=== PATIENT | female | born 1955 | race Hispanic/Latino ===

== ENCOUNTER 2017-05-21 01:51 | Inpatient (IN) | payer OTHER ==
[2017-05-21] VITALS (27 sets, daily range): BP systolic 100–145; BP diastolic 61–107
[~2017-05-21] VITALS: Ht 160 cm; Wt 37.0 kg
[~2017-05-21 01:51] MED LIST: ALBUTEROL0.63 MG/3
[2017-05-21] MEDS ORDERED: ALBUTEROL SULF 0.083% NEB SOLN 3 ML NEB NEB STA (01:53)
[2017-05-21] MEDS ORDERED: IPRATROPIUM BROMIDE 0.02% 2.5 ML NEB NEB ONE (02:00)
[2017-05-21] MEDS: SODIUM CHLORIDE 0.9% 1000ML 1,000 ML IV SCH ×6 (02:15→22:00)
[2017-05-21 02:20] LABS: BASOPHILS # (AUTO) 0.1 (0.0-0.1); BASOPHILS % 0.6 % (0.0-1.0); HEMATOCRIT 38.2 % (34.2-44.1); HEMOGLOBIN 13.1 g/dL (12.0-16.0); LYMPHOCYTES # (AUTO) 1.1 (1.0-3.2); LYMPHOCYTES % 8.8 % (18.0-39.1); MEAN CORPUSCULAR HEMOGLOBIN 34.4 pg (28-32); MEAN CORPUSCULAR HGB CONC 34.3 g/dL (31-35); MEAN CORPUSCULAR VOLUME 100.3 fL (81-99); MONOCYTES # (AUTO) 1.1 (0.2-0.8); MONOCYTES % 8.6 % (4.4-11.3); NEUTROPHILS % 81.8 % (38.7-80.0); PLATELET COUNT 241 x10e3/uL (140-360); RED BLOOD COUNT 3.81 x10e6/uL (3.6-5.1); RED CELL DISTRIBUTION WIDTH 11.8 % (11.7-14.4)
[2017-05-21 02:37] LABS: ALANINE AMINOTRANSFERASE 21 IU/L (0-55); ALBUMIN 3.4 g/dL (3.5-5.0); ALBUMIN/GLOBULIN RATIO 0.7 (0.8-2.0); ALKALINE PHOSPHATASE 102 IU/L (40-150); BLOOD UREA NITROGEN 20 mg/dL (7-26); BUN/CREATININE RATIO 29 (6-25); CALCIUM 9.4 mg/dL (8.4-10.2); CARBON DIOXIDE 27 mmol/L (22-29); CHLORIDE 101 mmol/L (98-107); CREATINE KINASE 211 IU/L (29-168); CREATININE, SERUM 0.68 mg/dL (0.57-1.11); EST GLOMERULAR FILTRATION RATE > 60 ML/MIN (60-); GLUCOSE 128 mg/dL (74-118); SODIUM 138 mmol/L (136-145)
--- NOTE | 2017-05-21 04:14 | Diagnostic Imaging Report ---
EXAMINATION: CHEST SINGLE (PORTABLE) INDICATION: Shortness of breath COMPARISON: None FINDINGS: TUBES and LINES: None. LUNGS: Lungs are hyper inflated. Predominantly perihilar and bibasilar opacities. There is mild prominence of the central pulmonary vasculature, consistent with pulmonary venous congestion. PLEURA: No pleural effusion or pneumothorax. HEART AND MEDIASTINUM: The cardiomediastinal silhouette is unremarkable. There are atherosclerotic calcifications within the aorta. BONES AND SOFT TISSUES: No acute osseous lesion. Soft tissues are unremarkable. UPPER ABDOMEN: No free air under the diaphragm. IMPRESSION: Findings in the perihilar and bibasilar regions are compatible with atypical infection. Background of COPD. Signed by: Dr. Julian Rossi M.D. on 05/21/2017 4:10 AM
[2017-05-21] MEDS ORDERED: AZITHROMYCIN 500MG/NS 250 ML 250 ML IV STA (04:19)
[2017-05-21] MEDS ORDERED: CEFTRIAXONE SOD 1 GM VIAL IV STA (04:19)
[2017-05-21] MEDS ORDERED: AZITHROMYCIN 500MG/SOD CHL 0.9% 250ML BAG IV SCH (04:30)
[2017-05-21] MEDS: ALBUTEROL SULF 0.083% NEB SOLN 3 ML NEB NEB SCH ×6 (04:30→23:15)
[2017-05-21] MEDS ORDERED: CEFTRIAXONE SOD 1 GM VIAL IV SCH (04:30)
[2017-05-21] MEDS ORDERED: ACETAMINOPHEN 325 MG TAB PO PRN (04:30)
[2017-05-21] MEDS ORDERED: CEFTRIAXONE SOD 1 GM/NS 50 ML 50 ML IV SCH (04:45)
[2017-05-21] MEDS: AZITHROMYCIN 500MG/NS 250 ML 250 ML IV SCH (05:09)
[2017-05-21] MEDS ORDERED: METHYLPREDNISOLONE SOD SUCC 40 MG/ML VIAL IV SCH (06:00)
[2017-05-21] MEDS: IPRATROPIUM BROMIDE 0.02% 2.5 ML NEB NEB SCH ×4 (06:50→23:15)
[2017-05-21] MEDS: NICOTINE 21 MG/EA PATCH TOP SCH (08:22)
[2017-05-21] MEDS ORDERED: NORCO 10-325 T1 EACH PO (10:41)
[2017-05-21] MEDS: HYDROCODONE/APAP 10MG-325MG TAB PO PRN ×2 (13:25→18:11)
[2017-05-21] MEDS: METHYLPREDNISOLONE SOD SUCC 40 MG/ML VIAL IV SCH ×2 (13:25→22:00)
[2017-05-21] MEDS: GUAIFENESIN/DEXTROMETHORPHAN LIQD 5 ML UDC NG SCH ×2 (13:58→22:00)
[2017-05-21] MEDS ORDERED: IBUPROFEN400 MG PO (14:54)
[2017-05-21] MEDS: FAMOTIDINE 20 MG TAB PO SCH (16:00)
[2017-05-21] MEDS: ENOXAPARIN SOD INJ 40 MG/0.4 ML SYR SC SCH (16:00)
[2017-05-21] MEDS: MEGESTROL ACETATE 40 MG TAB PO SCH (16:00)
[2017-05-21] MEDS: BENZONATATE 100 MG CAP PO SCH ×2 (16:00→22:00)
[2017-05-21] MEDS ORDERED: PROAIR HFA INH8.5 GM IH (18:12)
[2017-05-21] MEDS ORDERED: PREDNISONE20 MG PO (18:12)
[2017-05-21] MEDS ORDERED: Anoro Ellipta IH (18:12)
[2017-05-22] MEDS: ALBUTEROL SULF 0.083% NEB SOLN 3 ML NEB NEB SCH ×7 (02:55→23:45)
[2017-05-22] MEDS: HYDROCODONE/APAP 10MG-325MG TAB PO PRN ×4 (03:00→21:06)
[2017-05-22 03:32] VITALS: BP 137/80
[2017-05-22] MEDS: SODIUM CHLORIDE 0.9% 1000ML 1,000 ML IV SCH ×5 (04:23→21:52)
--- NOTE | 2017-05-22 04:39 | History and Physical ---
PRIMARY CARE PHYSICIAN: Patient does not recall PCP. CHIEF COMPLAINT: Shortness of breath and cough. HISTORY OF PRESENT ILLNESS: This is a 61-year-old woman with a history of COPD and continued cigarette use, now developing cough and shortness of breath for the past 10 days causing her to come to the hospital. She has had productive cough with chills and fever. Temperature is 102.1. She has chest discomfort in the axillary region with cough. Chest discomfort started after coughing had been going on for some days. PAST MEDICAL HISTORY: COPD and cigarette abuse. PAST SURGICAL HISTORY: Knee surgery. ALLERGIES: PER ELECTRONIC MEDICAL RECORDS. FAMILY HISTORY/SOCIAL HISTORY: Patient is single. She has 1 child. Continues to smoke cigarettes, undisclosed amount. No alcohol or illicits. MEDICATIONS: Per electronic medical record. REVIEW OF SYSTEMS: Denies any dizziness. PHYSICAL EXAMINATION VITAL SIGNS: Reviewed. GENERAL: A tired-appearing woman resting in bed. HEENT: Anicteric. She has a BiPAP mask in place. She has bitemporal wasting. CARDIOVASCULAR: Normal S1 and S2. LUNGS: Coarse breath sounds. Coughing with deep inspiration. Crackles are audible throughout the lungs. Reduced breath sounds throughout. ABDOMEN: Soft, nontender and nondistended. EXTREMITIES: No edema. SKIN: Dry. PSYCHIATRIC: Flat affect. LABS: Reviewed. MEDICATIONS: Reviewed. ASSESSMENT AND PLAN: This is a 61-year-old woman with: 1. Acute exacerbation of chronic obstructive pulmonary disease: Steroids, nebs, antitussive medications, antihistamines. Pulmonary consultation. Influenza screening is negative. Chest x-ray does show signs compatible atypical infection. Will ensure that the patient has atypical coverage of azithromycin. 2. Cigarette abuse: Counseling again on cigarette cessation needed. Will use nicotine patch. 3. Bronchopneumonia: Continue antibiotics. 4. Acute respiratory failure: She has a BiPAP mask in place. Pulmonary service consultation. 5. Underweight state/severe protein calorie malnutrition with bitemporal wasting: Body mass index 14.2. Will start Ensure and start Megace. There may be some component of depression here. Will also obtain a prealbumin level. Will also obtain a TSH level. 6. Prophylaxis: Will use Lovenox and Pepcid. 7. Disposition: Monitor closely. Supportive care. Counseling on cigarette cessation. Job#: [id number] ERICKA
--- NOTE | 2017-05-22 06:07 | Diagnostic Imaging Report ---
EXAMINATION: CHEST SINGLE (PORTABLE) INDICATION: Pneumonia. COMPARISON: 05/21/2017 FINDINGS: TUBES and LINES: None. LUNGS: Lungs are hyper inflated. Lungs are clear. There is no evidence of pneumonia or pulmonary edema. PLEURA: No pleural effusion or pneumothorax. HEART AND MEDIASTINUM: The cardiomediastinal silhouette is unremarkable. BONES AND SOFT TISSUES: No acute osseous lesion. Soft tissues are unremarkable. UPPER ABDOMEN: No free air under the diaphragm. IMPRESSION: 1. No acute thoracic abnormality. 2. Stable changes of COPD. Signed by: Dr. Julian Rossi M.D. on 05/22/2017 6:03 AM
[2017-05-22] MEDS: IPRATROPIUM BROMIDE 0.02% 2.5 ML NEB NEB SCH ×5 (07:00→23:45)
[2017-05-22] MEDS: AZITHROMYCIN 500MG/NS 250 ML 250 ML IV SCH (07:09)
[2017-05-22] MEDS: FAMOTIDINE 20 MG TAB PO SCH ×2 (07:21→17:48)
[2017-05-22] MEDS: METHYLPREDNISOLONE SOD SUCC 40 MG/ML VIAL IV SCH ×3 (07:21→22:13)
[2017-05-22] MEDS: CEFTRIAXONE SOD 1 GM VIAL IV SCH (07:21)
[2017-05-22 07:45] VITALS: BP 117/61
[2017-05-22 08:16] LABS: BASOPHILS % 0.2 % (0.0-1.0); LYMPHOCYTES # (AUTO) 0.6 (1.0-3.2); MEAN CORPUSCULAR HEMOGLOBIN 34.3 pg (28-32); MEAN CORPUSCULAR HGB CONC 33.3 g/dL (31-35); MEAN CORPUSCULAR VOLUME 102.8 fL (81-99); MONOCYTES # (AUTO) 0.3 (0.2-0.8); MONOCYTES % 6.9 % (4.4-11.3); NEUTROPHILS # (AUTO) 3.1 (2.1-6.9); NEUTROPHILS % 77.2 % (38.7-80.0); PLATELET COUNT 192 x10e3/uL (140-360); RED BLOOD COUNT 3.21 x10e6/uL (3.6-5.1); RED CELL DISTRIBUTION WIDTH 11.6 % (11.7-14.4)
[2017-05-22 08:44] LABS: ALANINE AMINOTRANSFERASE 22 IU/L (0-55); ALBUMIN 2.5 g/dL (3.5-5.0); ALBUMIN/GLOBULIN RATIO 0.7 (0.8-2.0); ALKALINE PHOSPHATASE 62 IU/L (40-150); BLOOD UREA NITROGEN 11 mg/dL (7-26); BUN/CREATININE RATIO 19 (6-25); CALCIUM 8.7 mg/dL (8.4-10.2); CARBON DIOXIDE 27 mmol/L (22-29); CHLORIDE 105 mmol/L (98-107); CREATININE, SERUM 0.58 mg/dL (0.57-1.11); EST GLOMERULAR FILTRATION RATE > 60 ML/MIN (60-); GLUCOSE 119 mg/dL (74-118); SODIUM 140 mmol/L (136-145)
[2017-05-22] MEDS: GUAIFENESIN/DEXTROMETHORPHAN LIQD 5 ML UDC NG SCH ×3 (10:42→22:13)
[2017-05-22] MEDS: LORATADINE 10 MG TAB PO SCH (10:42)
[2017-05-22] MEDS: MEGESTROL ACETATE 40 MG TAB PO SCH ×2 (10:42→17:48)
[2017-05-22] MEDS: BENZONATATE 100 MG CAP PO SCH ×3 (10:43→21:06)
[2017-05-22] MEDS: NICOTINE 21 MG/EA PATCH TOP SCH (10:43)
--- NOTE | 2017-05-22 11:20 | Progress Note ---
DATE: May 22, 2017 TIME: 7 a.m. OVERNIGHT: Feeling a little better. REVIEW OF SYSTEMS: Denies any dizziness. VITAL SIGNS: Reviewed. PHYSICAL EXAMINATION GENERAL: A tired-appearing woman resting in bed. HEENT: Anicteric. BiPAP mask in place. CARDIOVASCULAR: Normal S1 and S2. LUNGS: Coarse breath sounds heard. Crackles are audible. ABDOMEN: Soft, nontender and nondistended. EXTREMITIES: No edema. SKIN: Dry. PSYCHIATRIC: Flat affect. LABS: Reviewed. MEDICATIONS: Reviewed. ASSESSMENT AND PLAN: This is a 61-year-old woman. 1. Acute exacerbation of chronic obstructive pulmonary disease on steroids, nebulizers, antitussive medications, antihistamines and BiPAP. 2. Cigarette abuse. Counseled on cessation. Nicotine patch. 3. Bronchopneumonia. Antibiotics. 4. Acute respiratory failure. BiPAP. 5. Underweight state/severe protein calorie malnutrition with bitemporal wasting. BMI is 14.21. Continue Megace and Ensure. 6. Prophylaxis: Lovenox and Pepcid. 7. Disposition: Continue current care. Continue BiPAP support. All cultures remain negative. Prealbumin is pending. TSH is normal. Chest x-ray is unchanged. Job#: [id number]
[2017-05-22 14:31] VITALS: BP 158/80
--- NOTE | 2017-05-22 15:29 | Consultation ---
DATE OF CONSULTATION: May 21, 2017 PULMONARY MEDICINE CONSULT REFERRING PHYSICIAN: Dr. Juan Long. REASON FOR REFERRAL: COPD. HISTORY OF PRESENT ILLNESS: Ms. Billy is a pleasant 61-year-old female with COPD. Patient was in usual state of health recently. She was into a more shortness of breath. Onset was 2 weeks ago. There was a pattern of nonresponsiveness. At home, she has albuterol nebulizer treatments, which were not sufficiently helping. Her baseline exercise tolerance was about one-half block distance, but recently she is only about able to go one home distance. She has some secretions. She is having trouble expectorating. At this point with associated wheezes, she elected to come to the emergency room. Patient in the emergency room received multiple therapy with poor responsiveness and she was admitted. I am asked to evaluate and assist in management. Chest x-ray showed bilateral patchy opacities. PAST MEDICAL HISTORY: COPD, left knee meniscus surgery, history of solid liver nodules on the previous evaluation. MEDICATIONS: List reviewed per electronic record. Only pulmonary home medication was albuterol nebulized formulation. ALLERGIES: NO KNOWN DRUG ALLERGIES. SOCIAL HISTORY: Patient smoked from age 16 to 61, active, 1 pack per day average. No heavy alcohol, no drugs. 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 She lived from [place], [place] to [place], [place] and she came to [place] in year 2008. Patient was noted to have a lot of outdoor hobbies, although she cannot do these a lot lately due to her decreased physical capacity. FAMILY HISTORY: Noncontributory to this condition. REVIEW OF SYSTEMS GENERAL: There is mild decreased weight generally. OPHTHALMOLOGIC: No double vision. ENT: No dry mouth. ENDOCRINE: There is no history of thyroid disease. PULMONARY: No asthma. GI: Denies GERD. CARDIAC: No heart attacks. IMMUNOLOGIC: Denies allergies. NEUROLOGIC: No seizures. DERMATOLOGIC: No rashes. MUSCULOSKELETAL: Mild arthritis. PSYCHIATRIC: No depression. PHYSICAL EXAMINATION VITAL SIGNS: Patient with afebrile status. Vital signs noted, reviewed per electronic record. GENERAL: No acute stress, alert and patient is calm, but with increased respiratory work of breathing. HEENT: Normocephalic, atraumatic. NECK: Supple. Throat midline. LUNGS: Bilateral air entry, few rhonchi. CARDIOVASCULAR: S1 and S2. No murmurs, rubs, or gallops. Cardiovascular is also without any specific large sternal popping. ABDOMEN: Soft, nontender. EXTREMITIES: No clubbing, no cyanosis, there is no edema. INTEGUMENT: No rash. No purpura. LABS: Potassium 4.0, creatinine 2.7. White count 12, hematocrit 38. Chest x-ray with bilateral patchy opacities. IMPRESSION AND PLAN 1. Abnormal chest radiography, treat for pneumonia. 2. Abnormal chest radiography, cannot rule out fluid overload. 3. History of chronic obstructive pulmonary disease, treat with exacerbation. 4. Patient with active smoking. 5. Debility. At this time, we will continue current therapy. Steroids and bronchodilators should be continued. Furthermore, patient should get aggressive pulmonary rehab after discharge. Patient will need workup if this is leaning on infection and we will consider ordering HIV testing. Check a BNP level to help discriminate if this could be cardiac. Follow up closely. Thank you very much, Dr. Long for allowing me the chance to participate in the care of Ms. Billy. Do not hesitate to contact me if I can help in any way. Job#: [id number] SMITH
[2017-05-22] MEDS: ENOXAPARIN SOD INJ 40 MG/0.4 ML SYR SC SCH (17:48)
[2017-05-22 17:51] VITALS: BP 150/78
[2017-05-23] VITALS (11 sets, daily range): BP systolic 120–200; BP diastolic 64–113
[2017-05-23] MEDS: ALBUTEROL SULF 0.083% NEB SOLN 3 ML NEB NEB SCH ×6 (00:45→19:50)
--- NOTE | 2017-05-23 01:47 | Progress Note ---
DATE: May 22, 2017 PULMONARY MEDICINE PROGRESS NOTE SUBJECTIVE: Mrs. Billy was seen and examined at bedside. She remains weak for the time being. She did have worsening shortness of breath. She did not need to go back on the BiPAP for rescue. Chest x-ray is appearing stable. Normal saline at 30 mL per hour. Oxygen saturation 87% and 92% on 2 L per minute by nasal cannula prior to going on BiPAP. REVIEW OF SYSTEMS: No headaches. No nosebleeds. OBJECTIVE VITALS: Afebrile. Vital signs noted per electronic record. GENERAL: In no acute distress. Calm on the BiPAP although she was short of breath earlier. HEENT: Normocephalic and atraumatic. NECK: Supple. Throat midline. LUNGS: Bilateral air entry decreased. Few rhonchi. Few wheezes. CARDIOVASCULAR: S1 and S2. No murmurs, rubs or gallops. ABDOMEN: Soft and nontender. EXTREMITIES: No clubbing. No cyanosis. There is no edema. INTEGUMENT: No rash. No purpura. LABS: White count 4, hematocrit 33 and platelets 192,000. Potassium 5, creatinine 0.6. BNP 349. Albumin 2.5. IMPRESSION AND PLAN 1. Acute respiratory failure, BiPAP. 2. Chronic obstructive pulmonary disease with exacerbation. 3. Weakness. 4. Smoker. 5. Hypoxemia. Continue BiPAP for rescue. Wean off the nasal cannula as tolerated. Continue oral diet. Steroids will be continued IV. Bronchodilators and antibiotics as well. Will follow along closely. Job#: [id number] ERICKA
[2017-05-23] MEDS: HYDROCODONE/APAP 10MG-325MG TAB PO PRN (03:23)
[2017-05-23] MEDS: SODIUM CHLORIDE 0.9% 1000ML 1,000 ML IV SCH ×3 (04:42→12:23)
[2017-05-23] MEDS: CEFTRIAXONE SOD 1 GM VIAL IV SCH (04:58)
[2017-05-23] MEDS: AZITHROMYCIN 500MG/NS 250 ML 250 ML IV SCH (05:23)
[2017-05-23 05:29] LABS: BASOPHILS % 0.2 % (0.0-1.0); HEMOGLOBIN 11.5 g/dL (12.0-16.0); LYMPHOCYTES # (AUTO) 0.5 (1.0-3.2); LYMPHOCYTES % 11.5 % (18.0-39.1); MEAN CORPUSCULAR HEMOGLOBIN 34.1 pg (28-32); MEAN CORPUSCULAR HGB CONC 33.8 g/dL (31-35); MEAN CORPUSCULAR VOLUME 100.9 fL (81-99); MONOCYTES # (AUTO) 0.3 (0.2-0.8); MONOCYTES % 6.2 % (4.4-11.3); NEUTROPHILS # (AUTO) 3.4 (2.1-6.9); NEUTROPHILS % 81.4 % (38.7-80.0); PLATELET COUNT 211 x10e3/uL (140-360); RED BLOOD COUNT 3.37 x10e6/uL (3.6-5.1); RED CELL DISTRIBUTION WIDTH 11.5 % (11.7-14.4)
[2017-05-23] MEDS: GUAIFENESIN/DEXTROMETHORPHAN LIQD 5 ML UDC NG SCH ×3 (05:47→22:00)
[2017-05-23] MEDS: METHYLPREDNISOLONE SOD SUCC 40 MG/ML VIAL IV SCH ×3 (05:47→22:13)
[2017-05-23 05:52] LABS: ALANINE AMINOTRANSFERASE 21 IU/L (0-55); ALBUMIN 2.6 g/dL (3.5-5.0); ALBUMIN/GLOBULIN RATIO 0.7 (0.8-2.0); ALKALINE PHOSPHATASE 67 IU/L (40-150); ANION GAP 9.1 mmol/L (8-16); BLOOD UREA NITROGEN 12 mg/dL (7-26); BUN/CREATININE RATIO 21 (6-25); CALCIUM 8.8 mg/dL (8.4-10.2); CARBON DIOXIDE 33 mmol/L (22-29); CHLORIDE 104 mmol/L (98-107); CREATININE, SERUM 0.58 mg/dL (0.57-1.11); EST GLOMERULAR FILTRATION RATE > 60 ML/MIN (60-); GLUCOSE 133 mg/dL (74-118); POTASSIUM 4.1 mmol/L (3.5-5.1); SODIUM 142 mmol/L (136-145)
[2017-05-23 06:52] LABS: HIV 1&2 AB SCREEN NON-REACTIVE (NONREACTIVE)
[2017-05-23 07:07] LABS: LYMPHOCYTES % (MANUAL) 8 % (19-48); MONOCYTES % (MANUAL) 7 % (3.4-9.0); NEUTROPHILS % (MANUAL) 82 % (40-74); PLATELET ESTIMATE ADEQUATE; PLATELET MORPHOLOGY COMMENT NORMAL; RBC MORPHOLOGY COMMENT NORMAL
--- NOTE | 2017-05-23 07:10 | Diagnostic Imaging Report ---
Examination: Single AP view of the chest. COMPARISON: 05/22/2017 INDICATION: Pneumonia DISCUSSION: Lungs remain hyperinflated. No focal consolidation, pleural effusion, or pneumothorax. Stable cardiomediastinal contour with atherosclerotic calcification of the thoracic aorta. No pulmonary edema. No acute osseous abnormality. IMPRESSION: Pulmonary hyperinflation compatible with COPD. No consolidative pneumonia. Signed by: Dr. Rodney Malloy M.D. on 05/23/2017 7:06 AM
[2017-05-23] MEDS: FAMOTIDINE 20 MG TAB PO SCH ×2 (07:30→15:59)
[2017-05-23] MEDS: IPRATROPIUM BROMIDE 0.02% 2.5 ML NEB NEB SCH ×3 (08:15→19:50)
[2017-05-23] MEDS: NICOTINE 21 MG/EA PATCH TOP SCH (09:30)
[2017-05-23] MEDS: BENZONATATE 100 MG CAP PO SCH ×3 (09:30→20:00)
[2017-05-23] MEDS: LORATADINE 10 MG TAB PO SCH (09:30)
[2017-05-23] MEDS ORDERED: HYDROMORPHONE 2MG/ML INJ IV ONE (09:30)
[2017-05-23] MEDS: MEGESTROL ACETATE 40 MG TAB PO SCH ×2 (09:30→16:01)
[2017-05-23] MEDS ORDERED: HYDROMORPHONE 1MG/1ML INJ IV PRN (12:45)
--- NOTE | 2017-05-23 12:58 | Progress Note ---
DATE: May 23, 2017 PULMONARY MEDICINE PROGRESS NOTE SUBJECTIVE: Mrs. Billy was seen and examined at bedside. She continues to have mostly BiPAP dependence, which she has worn for most of the day, 100% oxygen saturation. On the BiPAP, she is calm. She says she does not like the device, however, but she is wearing it because of her significant dyspnea. The patient is able to eat, and her appetite is starting to come back. REVIEW OF SYSTEMS: No chest pain. No bleeding. OBJECTIVE VITALS: Afebrile. Vital signs noted per electronic record. GENERAL: In no acute distress. Alert and calm on BiPAP. HEENT: Normocephalic and atraumatic. NECK: Supple. Throat midline. LUNGS: Bilateral air entry is decreased. Few rhonchi. Rare crackles. CARDIOVASCULAR: S1 and S2. No murmurs, rubs or gallops. ABDOMEN: Soft and nontender. EXTREMITIES: No clubbing. No cyanosis. There is no edema. INTEGUMENT: No rash. No purpura. LABS: 12 BUN, 0.6 creatinine, 4 white count, 34 hematocrit, 211 platelets. IMPRESSION AND PLAN 1. Acute respiratory failure on BiPAP salvage. 2. Chronic obstructive pulmonary disease with exacerbation. 3. Chronic smoker. 4. History of solid liver nodule times 1 on outside ultrasound. Continue current treatment at this time. BiPAP for salvage. Escalate diet as tolerated. Bronchodilators and steroids. She would benefit from therapy and rehab even after she gets out of the hospital. We will follow along closely. Job#: [id number]
[2017-05-23] MEDS: HYDROMORPHONE 2MG/ML INJ IV PRN ×2 (15:59→22:13)
[2017-05-23] MEDS: ENOXAPARIN SOD INJ 40 MG/0.4 ML SYR SC SCH (16:01)
[2017-05-23] MEDS: ALPRAZOLAM 0.25 MG TAB PO SCH (20:00)
[2017-05-23] MEDS: NIFEDIPINE CR 30 MG TAB PO SCH (20:00)
[2017-05-24] VITALS (7 sets, daily range): BP systolic 142–166; BP diastolic 55–88
[2017-05-24] MEDS: IPRATROPIUM BROMIDE 0.02% 2.5 ML NEB NEB SCH ×5 (03:45→23:45)
[2017-05-24] MEDS: ALBUTEROL SULF 0.083% NEB SOLN 3 ML NEB NEB SCH ×6 (03:45→23:45)
[2017-05-24] MEDS: HYDROMORPHONE 2MG/ML INJ IV PRN ×4 (04:15→22:17)
[2017-05-24] MEDS: GUAIFENESIN/DEXTROMETHORPHAN LIQD 5 ML UDC NG SCH ×3 (04:33→21:48)
[2017-05-24] MEDS: AZITHROMYCIN 500MG/NS 250 ML 250 ML IV SCH (04:33)
[2017-05-24] MEDS: CEFTRIAXONE SOD 1 GM VIAL IV SCH (04:33)
[2017-05-24] MEDS: ALPRAZOLAM 0.25 MG TAB PO SCH ×3 (05:25→21:48)
[2017-05-24] MEDS: METHYLPREDNISOLONE SOD SUCC 40 MG/ML VIAL IV SCH ×3 (05:25→21:48)
[2017-05-24] MEDS: MEGESTROL ACETATE 40 MG TAB PO SCH ×2 (08:24→16:39)
[2017-05-24] MEDS: FAMOTIDINE 20 MG TAB PO SCH ×2 (08:24→16:39)
[2017-05-24] MEDS: LORATADINE 10 MG TAB PO SCH (08:24)
[2017-05-24] MEDS: NIFEDIPINE CR 30 MG TAB PO SCH ×2 (08:25→21:48)
[2017-05-24] MEDS: BENZONATATE 100 MG CAP PO SCH ×3 (08:25→21:48)
[2017-05-24] MEDS: NICOTINE 21 MG/EA PATCH TOP SCH (08:25)
--- NOTE | 2017-05-24 14:39 | Progress Note ---
DATE: May 24, 2017 PULMONARY MEDICINE PROGRESS NOTE SUBJECTIVE: The patient remained on BiPAP for most of yesterday; however, today, she is coming off more reliably. She is able to walk in the nicole and saturation remained in 90% saturation range, 3.8 L in and 1.8 L out, 98% oxygen saturation on 3 L per minute nasal cannula. Blood culture no growth today in 48 hours. REVIEW OF SYSTEMS: No bleeding. No rash. OBJECTIVE VITALS: Afebrile. Vital signs noted per electronic record. GENERAL: No distress, but looks very weak and calm. HEENT: Normocephalic, atraumatic. NECK: Supple. Throat in the midline. LUNGS: Bilateral air entry, decreased at all auscultation levels, few rhonchi, few wheezes. CARDIOVASCULAR: S1 and S2. No murmurs, rubs, or gallops. ABDOMEN: Soft and nontender. EXTREMITIES: No clubbing. No cyanosis. There is no edema. INTEGUMENT: No rash. No purpura. IMPRESSION AND PLAN 1. Acute respiratory failure, status post BiPAP salvage. 2. Chronic obstructive pulmonary disease with exacerbation. 3. Pneumonia. 4. Active smoker. Continue IV antibiotics. Bronchodilators. Steroids. Continue and will wean the prednisone by tomorrow. Patient has very difficult breathing. Will benefit from aggressive therapy. Will follow up closely. Job#: [id number] BRO
[2017-05-24] MEDS ORDERED: ALBUTEROL/IPRATROPIUM 3 ML NEB ONE (15:36)
[2017-05-24] MEDS: ENOXAPARIN SOD INJ 40 MG/0.4 ML SYR SC SCH (16:39)
[2017-05-25] VITALS (7 sets, daily range): BP systolic 135–163; BP diastolic 74–91
[2017-05-25] MEDS: ALBUTEROL SULF 0.083% NEB SOLN 3 ML NEB NEB SCH ×5 (03:00→19:15)
[2017-05-25] MEDS ORDERED: SODIUM CHLORIDE 0.9% 250ML 250 ML ONE (04:34)
[2017-05-25] MEDS: HYDROMORPHONE 2MG/ML INJ IV PRN ×4 (04:38→23:40)
[2017-05-25] MEDS: CEFTRIAXONE SOD 1 GM VIAL IV SCH (04:38)
[2017-05-25] MEDS: AZITHROMYCIN 500MG/NS 250 ML 250 ML IV SCH (04:38)
[2017-05-25] MEDS: ALPRAZOLAM 0.25 MG TAB PO SCH ×3 (06:03→21:12)
[2017-05-25] MEDS: GUAIFENESIN/DEXTROMETHORPHAN LIQD 5 ML UDC NG SCH ×3 (06:03→21:12)
[2017-05-25] MEDS: METHYLPREDNISOLONE SOD SUCC 40 MG/ML VIAL IV SCH (06:03)
--- NOTE | 2017-05-25 06:57 | Diagnostic Imaging Report ---
EXAM: CHEST SINGLE (PORTABLE), AP 1 view DATE: 05/25/2017 5:00 AM Time stamp on exam: 0625 hours INDICATION: Pneumonia, shortness of breath COMPARISON: None FINDINGS: LINES/TUBES: None LUNGS: No consolidations or edema. Emphysematous changes. PLEURA: No effusions or pneumothorax. HEART AND MEDIASTINUM: Normal size and contour. BONES AND SOFT TISSUES: No acute findings. IMPRESSION: No evidence of pneumonia. Signed by: Dr. Sera Andre M.D. on 05/25/2017 6:53 AM
[2017-05-25] MEDS: IPRATROPIUM BROMIDE 0.02% 2.5 ML NEB NEB SCH ×3 (07:00→19:15)
[2017-05-25] MEDS: FAMOTIDINE 20 MG TAB PO SCH ×2 (07:30→16:27)
--- NOTE | 2017-05-25 08:43 | Progress Note ---
DATE: May 23, 2017 TIME: 7 a.m. OVERNIGHT: No events. REVIEW OF SYSTEMS: Denies any dizziness. PHYSICAL EXAMINATION VITAL SIGNS: Reviewed. GENERAL: A tired-appearing woman resting in bed with BiPAP mask in place. CARDIOVASCULAR: Normal S1 and S2. LUNGS: Reduced breath sounds throughout. ABDOMEN: Soft and nontender. EXTREMITIES: No edema. SKIN: Dry. PSYCHIATRIC: Flat affect. LABS: Reviewed. MEDICATIONS: Reviewed. ASSESSMENT: A 61-year-old woman with: 1. Acute exacerbation of chronic obstructive pulmonary disease. 2. Bronchopneumonia. 3. Cigarette abuse. 4. Underweight state and severe protein calorie malnutrition with bitemporal wasting. 5. Acute respiratory failure. PLAN 1. Continue BiPAP support. 2. Continue antibiotics. 3. Continue nebs. 4. Cigarette cessation. 5. Physical therapy. 6. Discharge planning. Job#: [id number] [place]
--- NOTE | 2017-05-25 08:47 | Progress Note ---
DATE: May 24, 2017 TIME: 7 a.m. OVERNIGHT: No events. REVIEW OF SYSTEMS: Denies any dizziness. PHYSICAL EXAMINATION VITAL SIGNS: Reviewed. GENERAL: A tired-appearing woman resting in bed with BiPAP mask in place. CARDIOVASCULAR: Normal S1 and S2. LUNGS: Reduced breath sounds. Mildly coarse. ABDOMEN: Soft and nontender. EXTREMITIES: No edema. SKIN: Dry. PSYCHIATRIC: Flat affect. LABS: Reviewed. MEDICATIONS: Reviewed. ASSESSMENT: A 61-year-old woman with: 1. Acute exacerbation of chronic obstructive pulmonary disease. 2. Cigarette abuse. 3. Bronchopneumonia. 4. Acute respiratory failure. 5. Underweight state/severe protein calorie malnutrition with bitemporal wasting. PLAN 1. Continue antibiotics. 2. Continue BiPAP support. 3. Continue nebs and steroids. 4. Cigarette cessation. 5. Nutritional needs with Megace and Ensure. 6. Physical therapy. 7. Discharge planning. Job#: [id number] ERICKA
--- NOTE | 2017-05-25 08:56 | Progress Note ---
DATE: May 25, 2017 TIME: 8:04 a.m. OVERNIGHT: Currently short of breath. REVIEW OF SYSTEMS: Denies any dizziness. PHYSICAL EXAMINATION VITAL SIGNS: Reviewed. GENERAL: A tired-appearing woman resting in bed. HEENT: Anicteric. CARDIOVASCULAR: Normal S1 and S2. LUNGS: Coarse breath sounds. ABDOMEN: Soft and nontender. EXTREMITIES: No edema. SKIN: Dry. PSYCHIATRIC: Flat affect. NEUROLOGICAL: Alert and oriented times 3. LABS: Reviewed. MEDICATIONS: Reviewed. ASSESSMENT: A 61-year-old woman with: 1. Acute exacerbation of chronic obstructive pulmonary disease. 2. Cigarette abuse. 3. Bronchopneumonia. 4. Acute respiratory failure. 5. Underweight state/severe protein calorie malnutrition with bitemporal wasting: Prealbumin of 13. 6. Microcytic anemia: Remaining stable. PLAN 1. Continue BiPAP support. 2. Continue oxygen support. 3. Continue steroids and antibiotics. 4. Continue antitussive medication. 5. Continue Megace and Ensure for nutritional needs. 6. Continue nicotine patch and loratadine. 7. Continue physical therapy and skilled facility evaluation. Job#: [id number] ERICKA
[2017-05-25] MEDS: BENZONATATE 100 MG CAP PO SCH ×3 (09:29→21:12)
[2017-05-25] MEDS: NIFEDIPINE CR 30 MG TAB PO SCH ×2 (09:29→21:12)
[2017-05-25] MEDS: MEGESTROL ACETATE 40 MG TAB PO SCH ×2 (09:29→16:27)
[2017-05-25] MEDS: NICOTINE 21 MG/EA PATCH TOP SCH (09:29)
[2017-05-25] MEDS: LORATADINE 10 MG TAB PO SCH (09:29)
--- NOTE | 2017-05-25 15:49 | Progress Note ---
DATE: May 25, 2017 PULMONARY MEDICINE PROGRESS NOTE SUBJECTIVE: Ms. Billy was seen and examined at bedside. She continues to have some slow progress. She was off BiPAP for majority of yesterday. However, transiently she did go back on BiPAP during the night. Patient starting to eat a little better but only eating about one third of her diet. Patient still very dyspneic at this time and with limited exertional capacity. REVIEW OF SYSTEMS: No diarrhea, no bleeding. OBJECTIVE VITAL SIGNS: Afebrile. Vital signs noted per electronic record. GENERALLY: No acute distress but slightly pale and winded and frail. HEENT: Normocephalic, atraumatic. NECK: Supple. Throat midline. LUNGS: Bilateral air entry, a few rhonchi, a few crackles. CARDIOVASCULAR: S1 and S2. No murmurs, rubs or gallops. ABDOMINAL: Soft, nontender. EXTREMITIES: No clubbing, no cyanosis. There is no edema. INTEGUMENT: No rash. No purpura. LABS: No new labs. IMPRESSION AND PLAN 1. Acute respiratory failure, BiPAP salvage. 2. Advanced chronic obstructive pulmonary disease with exacerbation. 3. Protein calorie malnutrition, mild. 4. Chronic active smoker. Continue BiPAP weaning. Patient will be weaned to nasal cannula oxygen, and we will give her oxygen as needed, mean saturations greater than 89%. Patient will have aggressive PT and assessments of her stamina. She is still lagging behind. Will follow along closely. Will wean down steroids. Continue bronchodilators. Job#: [id number] [facility]
[2017-05-25] MEDS: ENOXAPARIN SOD INJ 40 MG/0.4 ML SYR SC SCH (16:27)
[2017-05-26] VITALS (9 sets, daily range): BP systolic 121–136; BP diastolic 73–84
[2017-05-26] MEDS: IPRATROPIUM BROMIDE 0.02% 2.5 ML NEB NEB SCH ×4 (00:15→19:50)
[2017-05-26] MEDS: ALBUTEROL SULF 0.083% NEB SOLN 3 ML NEB NEB SCH ×7 (00:15→23:00)
[2017-05-26] MEDS: AZITHROMYCIN 500MG/NS 250 ML 250 ML IV SCH (04:47)
[2017-05-26] MEDS: CEFTRIAXONE SOD 1 GM VIAL IV SCH (04:47)
[2017-05-26] MEDS: ALPRAZOLAM 0.25 MG TAB PO SCH ×3 (05:53→21:36)
[2017-05-26] MEDS: GUAIFENESIN/DEXTROMETHORPHAN LIQD 5 ML UDC NG SCH ×3 (05:53→21:36)
[2017-05-26] MEDS: HYDROMORPHONE 2MG/ML INJ IV PRN ×3 (05:54→18:55)
[2017-05-26] MEDS: PREDNISONE 20 MG TAB PO SCH (08:41)
[2017-05-26] MEDS: NIFEDIPINE CR 30 MG TAB PO SCH ×2 (08:41→21:37)
[2017-05-26] MEDS: LORATADINE 10 MG TAB PO SCH (08:41)
[2017-05-26] MEDS: MEGESTROL ACETATE 40 MG TAB PO SCH ×2 (08:41→16:37)
[2017-05-26] MEDS: NICOTINE 21 MG/EA PATCH TOP SCH (08:41)
[2017-05-26] MEDS: FAMOTIDINE 20 MG TAB PO SCH ×2 (08:41→15:42)
[2017-05-26] MEDS: BENZONATATE 100 MG CAP PO SCH ×3 (08:41→21:36)
--- NOTE | 2017-05-26 09:25 | Progress Note ---
DATE: May 26, 2017 TIME: 8:29 a.m. OVERNIGHT: Breathing a little better, but continues to cough. REVIEW OF SYSTEMS: Denies any dizziness or chest pain. PHYSICAL EXAMINATION VITAL SIGNS: Reviewed. GENERAL: A tired-appearing woman resting in bed. HEENT: Anicteric. CARDIOVASCULAR: Normal S1 and S2. LUNGS: Coarse breath sounds, but better aeration. ABDOMEN: Soft and nontender. EXTREMITIES: No edema. SKIN: Dry. PSYCHIATRIC: Flat affect. LABS: Reviewed. MEDICATIONS: Reviewed. ASSESSMENT: A 61-year-old woman with: 1. Acute exacerbation of chronic obstructive pulmonary disease. 2. Cigarette abuse. 3. Bronchopneumonia. 4. Acute respiratory failure. 5. Underweight state/severe protein calorie malnutrition with bitemporal wasting: Albumin 13. 6. Microcytic anemia. PLAN 1. Continue BiPAP support. 2. Nasal cannula. 3. Continue physical therapy. 4. Continue steroids, antibiotics, nebs, and oral therapy. 5. Continue Megace and Ensure. 6. Continue nicotine patch and loratadine. 7. Discharge planning. Patient is improving. Will need close followup once discharged. Job#: [id number] [place]
--- NOTE | 2017-05-26 10:51 | Progress Note ---
DATE: May 26, 2017 PULMONARY MEDICINE PROGRESS NOTE SUBJECTIVE: Ms. Billy was seen and examined at bedside. Patient with 1.0 L in, undocumented out, 2340 recorded over the last day, 1 bowel movement. Patient currently on nasal cannula oxygen at 3 L per minute with 99% oxygen saturation. She is using BiPAP less often right now. REVIEW OF SYSTEMS: No headache. No rash. OBJECTIVE VITALS: Afebrile. Vital signs noted per electronic record. GENERAL: No acute distress, alert, calm, thin, frail. HEENT: Normocephalic, atraumatic. NECK: Supple. Throat midline. LUNGS: Bilateral air entry, decreased on all lung moreno. Rare rhonchi, rare rasp. CARDIOVASCULAR: S1 and S2. No murmurs, rubs or gallops. ABDOMEN: Soft, nontender. EXTREMITIES: No clubbing, no cyanosis. There is no edema. INTEGUMENT: No rash. No purpura. IMPRESSION AND PLAN 1. Acute respiratory failure, BiPAP salvage. 2. Advanced chronic obstructive pulmonary disease with exacerbation. 3. Nicotine dependency. 4. Weakness. Continue aggressive PT and OT. Will consider checking blood gas on her. Continue weaning off the BiPAP. Try to maintain on oxygen as tolerated. Antibiotics empirically given the severity of instance for COPD exacerbation. Will follow along closely. Bronchodilators and steroid weaning. Job#: [id number]
[2017-05-26] MEDS: ENOXAPARIN SOD INJ 40 MG/0.4 ML SYR SC SCH (16:37)
[2017-05-27] VITALS (8 sets, daily range): BP systolic 123–153; BP diastolic 72–80
[2017-05-27] MEDS: HYDROMORPHONE 2MG/ML INJ IV PRN ×4 (00:09→19:45)
[2017-05-27] MEDS: IPRATROPIUM BROMIDE 0.02% 2.5 ML NEB NEB SCH ×4 (03:20→21:20)
[2017-05-27] MEDS: ALBUTEROL SULF 0.083% NEB SOLN 3 ML NEB NEB SCH ×5 (03:20→21:20)
[2017-05-27] MEDS: CEFTRIAXONE SOD 1 GM VIAL IV SCH (05:16)
[2017-05-27] MEDS: AZITHROMYCIN 500MG/NS 250 ML 250 ML IV SCH (05:16)
[2017-05-27] MEDS: HYDROCODONE/APAP 10MG-325MG TAB PO PRN (05:22)
[2017-05-27] MEDS: GUAIFENESIN/DEXTROMETHORPHAN LIQD 5 ML UDC NG SCH ×3 (05:22→21:17)
[2017-05-27] MEDS: ALPRAZOLAM 0.25 MG TAB PO SCH ×3 (05:22→21:17)
--- NOTE | 2017-05-27 07:23 | Progress Note ---
DATE: May 27, 2017 PULMONARY MEDICINE PROGRESS NOTE SUBJECTIVE: Ms. Billy was seen and examined at bedside. She continues to have an overall weak state. She did go back on BiPAP a couple of times yesterday. Currently on 3 liters per minute by nasal cannula. She did walk to the elevator twice. She is eating some amounts. REVIEW OF SYSTEMS: No headaches, no rash. OBJECTIVE: VITAL SIGNS: Afebrile, vital signs noted per electronic record. GENERAL: In no acute distress right now, thin, pale, looks crying. HEENT: Normocephalic, atraumatic. NECK: Supple. Throat midline. LUNGS: Bilateral air entry with diminished breath sounds, few rhonchi. CARDIOVASCULAR: S1, S2. No murmurs, rubs, or gallops. ABDOMEN: Soft, nontender. EXTREMITIES: No clubbing, no cyanosis, there is no edema. INTEGUMENT: No rash, no purpura. LABS: Pending. IMPRESSION AND PLAN: 1. Chronic obstructive pulmonary disease with exacerbation. 2. Acute respiratory failure. 3. Possible chronic respiratory failure, under workup. 4. Active smoking. 5. Weakness and debility. Continue aggressive physical therapy and occupational therapy. Continue bilevel positive airway pressure for comfort intermittently. Continue to wean her down on oxygen. Continue skilled physical therapy services for now. Continue to maximize diet and prevent weight loss. Job#: [id number]
[2017-05-27] MEDS: FAMOTIDINE 20 MG TAB PO SCH ×2 (07:42→16:00)
[2017-05-27] MEDS: PREDNISONE 20 MG TAB PO SCH (08:00)
[2017-05-27] MEDS: LORATADINE 10 MG TAB PO SCH (08:00)
[2017-05-27] MEDS: NICOTINE 21 MG/EA PATCH TOP SCH (08:00)
[2017-05-27] MEDS: MEGESTROL ACETATE 40 MG TAB PO SCH ×2 (08:00→16:00)
[2017-05-27] MEDS: BENZONATATE 100 MG CAP PO SCH ×3 (08:00→21:17)
[2017-05-27] MEDS: NIFEDIPINE CR 30 MG TAB PO SCH ×2 (08:00→21:17)
[2017-05-27] MEDS: ENOXAPARIN SOD INJ 40 MG/0.4 ML SYR SC SCH (16:00)
[2017-05-28] VITALS (8 sets, daily range): BP systolic 90–153; BP diastolic 56–85
[2017-05-28] MEDS: HYDROMORPHONE 2MG/ML INJ IV PRN ×4 (01:43→19:52)
[2017-05-28] MEDS: IPRATROPIUM BROMIDE 0.02% 2.5 ML NEB NEB SCH ×4 (02:55→19:55)
[2017-05-28] MEDS: ALBUTEROL SULF 0.083% NEB SOLN 3 ML NEB NEB SCH ×6 (02:55→23:20)
[2017-05-28] MEDS: CEFTRIAXONE SOD 1 GM VIAL IV SCH (04:28)
[2017-05-28] MEDS: AZITHROMYCIN 500MG/NS 250 ML 250 ML IV SCH (04:28)
[2017-05-28] MEDS: ALPRAZOLAM 0.25 MG TAB PO SCH ×3 (05:39→20:50)
[2017-05-28] MEDS: GUAIFENESIN/DEXTROMETHORPHAN LIQD 5 ML UDC NG SCH ×3 (05:39→20:49)
[2017-05-28 08:36] LABS: BASOPHILS % 0.2 % (0.0-1.0); EOSINOPHILS % 0.6 % (0.0-6.0); HEMATOCRIT 39.9 % (34.2-44.1); HEMOGLOBIN 13.5 g/dL (12.0-16.0); LYMPHOCYTES # (AUTO) 1.3 (1.0-3.2); LYMPHOCYTES % 26.6 % (18.0-39.1); MEAN CORPUSCULAR HEMOGLOBIN 34.4 pg (28-32); MEAN CORPUSCULAR HGB CONC 33.8 g/dL (31-35); MEAN CORPUSCULAR VOLUME 101.8 fL (81-99); MONOCYTES # (AUTO) 0.4 (0.2-0.8); MONOCYTES % 9.1 % (4.4-11.3); NEUTROPHILS % 62.7 % (38.7-80.0); PLATELET COUNT 256 x10e3/uL (140-360); RED BLOOD COUNT 3.92 x10e6/uL (3.6-5.1); RED CELL DISTRIBUTION WIDTH 11.8 % (11.7-14.4)
[2017-05-28] MEDS: BENZONATATE 100 MG CAP PO SCH ×3 (09:11→20:49)
[2017-05-28] MEDS: PREDNISONE 20 MG TAB PO SCH (09:11)
[2017-05-28] MEDS: LORATADINE 10 MG TAB PO SCH (09:11)
[2017-05-28] MEDS: MEGESTROL ACETATE 40 MG TAB PO SCH ×2 (09:11→17:05)
[2017-05-28] MEDS: NIFEDIPINE CR 30 MG TAB PO SCH ×2 (09:11→20:49)
[2017-05-28] MEDS: NICOTINE 21 MG/EA PATCH TOP SCH (09:11)
[2017-05-28] MEDS: FAMOTIDINE 20 MG TAB PO SCH ×2 (09:11→17:05)
--- NOTE | 2017-05-28 09:48 | Progress Note ---
DATE: May 28, 2017 TIME: 7:58 a.m. OVERNIGHT: Feeling a little better. REVIEW OF SYSTEMS: Denies any dizziness. VITAL SIGNS: Reviewed. PHYSICAL EXAMINATION GENERAL: A tired-appearing woman resting in bed. HEENT: Anicteric. CARDIOVASCULAR: Normal S1 and S2. LUNGS: She has reduced breath sounds throughout. No wheezing. ABDOMEN: Soft. Nontender and nondistended. EXTREMITIES: No edema. SKIN: Dry. PSYCHIATRIC: Flat affect. LABS: Reviewed. MEDICATIONS: Reviewed. ASSESSMENT: A 61-year-old woman. 1. Acute exacerbation of chronic obstructive pulmonary disease. 2. Cigarette abuse. 3. Bronchopneumonia. 4. Acute respiratory failure. 5. Underweight state/severe protein calorie malnutrition with bitemporal wasting. Prealbumin of 13. 6. Microcytic anemia. PLAN 1. Continue BiPAP at night and nasal cannula by day. 2. Continue physical therapy. 3. Continue steroids, nebs and antibiotics. 4. Continue Megace and Ensure. 5. Continue nicotine patch and loratadine. 6. Continue physical therapy. 7. Obtain labs tomorrow. 8. Discharge planning. HIV test and influenza were both negative. Job#: [id number]
[2017-05-28 11:10] LABS: ANION GAP 14.4 mmol/L (8-16); BLOOD UREA NITROGEN 13 mg/dL (7-26); BUN/CREATININE RATIO 23 (6-25); CALCIUM 8.9 mg/dL (8.4-10.2); CARBON DIOXIDE 28 mmol/L (22-29); CHLORIDE 99 mmol/L (98-107); CREATININE, SERUM 0.57 mg/dL (0.57-1.11); EST GLOMERULAR FILTRATION RATE > 60 ML/MIN (60-); GLUCOSE 75 mg/dL (74-118); POTASSIUM 4.4 mmol/L (3.5-5.1); SODIUM 137 mmol/L (136-145)
[2017-05-28] MEDS: ENOXAPARIN SOD INJ 40 MG/0.4 ML SYR SC SCH (17:05)
[2017-05-29] VITALS: BP 149/82
[2017-05-29] MEDS: HYDROMORPHONE 2MG/ML INJ IV PRN ×3 (01:58→14:22)
[2017-05-29] MEDS: ALBUTEROL SULF 0.083% NEB SOLN 3 ML NEB NEB SCH ×5 (03:20→19:15)
[2017-05-29] MEDS: IPRATROPIUM BROMIDE 0.02% 2.5 ML NEB NEB SCH ×4 (03:20→19:15)
[2017-05-29 04:05] VITALS: BP 140/73
[2017-05-29] MEDS: AZITHROMYCIN 500MG/NS 250 ML 250 ML IV SCH (04:41)
[2017-05-29] MEDS: CEFTRIAXONE SOD 1 GM VIAL IV SCH (04:41)
[2017-05-29] MEDS: ALPRAZOLAM 0.25 MG TAB PO SCH ×3 (05:46→21:30)
[2017-05-29] MEDS: GUAIFENESIN/DEXTROMETHORPHAN LIQD 5 ML UDC NG SCH ×3 (05:46→21:30)
[2017-05-29 07:34] LABS: BASOPHILS % 0.2 % (0.0-1.0); EOSINOPHILS % 0.4 % (0.0-6.0); HEMATOCRIT 35.8 % (34.2-44.1); LYMPHOCYTES # (AUTO) 1.2 (1.0-3.2); LYMPHOCYTES % 21.1 % (18.0-39.1); MEAN CORPUSCULAR HEMOGLOBIN 34.2 pg (28-32); MEAN CORPUSCULAR HGB CONC 33.5 g/dL (31-35); MONOCYTES # (AUTO) 0.5 (0.2-0.8); MONOCYTES % 9.3 % (4.4-11.3); NEUTROPHILS # (AUTO) 3.9 (2.1-6.9); NEUTROPHILS % 68.1 % (38.7-80.0); PLATELET COUNT 222 x10e3/uL (140-360); RED BLOOD COUNT 3.51 x10e6/uL (3.6-5.1); RED CELL DISTRIBUTION WIDTH 11.8 % (11.7-14.4)
[2017-05-29 07:55] LABS: BLOOD UREA NITROGEN 14 mg/dL (7-26); BUN/CREATININE RATIO 25 (6-25); CALCIUM 8.5 mg/dL (8.4-10.2); CARBON DIOXIDE 29 mmol/L (22-29); CHLORIDE 102 mmol/L (98-107); CREATININE, SERUM 0.55 mg/dL (0.57-1.11); EST GLOMERULAR FILTRATION RATE > 60 ML/MIN (60-); GLUCOSE 91 mg/dL (74-118); SODIUM 139 mmol/L (136-145)
[2017-05-29 08:00] VITALS: BP 123/74
[2017-05-29] MEDS: FAMOTIDINE 20 MG TAB PO SCH ×2 (08:15→17:00)
[2017-05-29] MEDS: MEGESTROL ACETATE 40 MG TAB PO SCH ×2 (08:30→17:00)
[2017-05-29] MEDS: PREDNISONE 20 MG TAB PO SCH (08:30)
[2017-05-29] MEDS: BENZONATATE 100 MG CAP PO SCH ×3 (08:30→20:40)
[2017-05-29] MEDS: NIFEDIPINE CR 30 MG TAB PO SCH ×2 (08:30→20:40)
[2017-05-29] MEDS: LORATADINE 10 MG TAB PO SCH (08:30)
[2017-05-29] MEDS: NICOTINE 21 MG/EA PATCH TOP SCH (08:30)
[2017-05-29 12:00] VITALS: BP 144/75
--- NOTE | 2017-05-29 14:08 | Progress Note ---
DATE: May 29, 2017 PULMONARY MEDICINE PROGRESS NOTE SUBJECTIVE: Ms. Billy was seen and examined at bedside. She continues with steady progress. Patient with mild shortness of breath but better than previous. Oxygen saturation 97%. She was given a walk test to see if she qualified for home oxygen, and she tells me she did not get lower than 95%. REVIEW OF SYSTEMS: No headaches, no bleeding. OBJECTIVE VITAL SIGNS: Afebrile. Vital signs noted per electronic record. GENERALLY: No acute distress, alert and calm. HEENT: Normocephalic, atraumatic. NECK: Supple. Throat midline. LUNGS: Bilateral air entry, a few rhonchi. CARDIOVASCULAR: S1 and S2. No murmurs, rubs or gallops. ABDOMINAL: Soft, nontender. EXTREMITIES: No clubbing, no cyanosis. There is no edema. INTEGUMENT: No rash. No purpura. LABS: Creatinine 0.6, potassium 4.0. White count 6, hematocrit 35. IMPRESSION AND PLAN 1. Acute respiratory failure, resolved. 2. Chronic obstructive pulmonary disease with exacerbation, advanced. 3. Weakness. 4. Possible chronic respiratory failure. 5. Upper respiratory infection. At this time will continue to allow the patient a chance to get better. Patient can continue to mobilize. PT and OT while she is here in the hospital. Patient okay for disposition from pulmonary point of view. I have written prescriptions. Patient will benefit from outpatient pulmonary rehabilitation. Job#: [id number] EV
[2017-05-29 16:00] VITALS: BP 133/74
[2017-05-29] MEDS: ENOXAPARIN SOD INJ 40 MG/0.4 ML SYR SC SCH (18:00)
--- NOTE | 2017-05-29 18:18 | Pre Op History & Physical ---
NO DICTATION. 2 seconds. Job#: [id number] GH
[2017-05-29] MEDS: HYDROCODONE/APAP 10MG-325MG TAB PO PRN (20:40)
[2017-05-29 21:29] VITALS: BP 155/85
--- NOTE | 2017-05-29 22:07 | Progress Note ---
DATE: May 29, 2017 MEDICINE PROGRESS NOTE TIME OF SERVICE: 5:26 p.m. SUBJECTIVE: Overnight, no events. Feeling better. REVIEW OF SYSTEMS: Denies any dizziness, chest pain. VITAL SIGNS: Reviewed. PHYSICAL EXAMINATION GENERAL APPEARANCE: A tired-appearing woman resting in bed. HEENT: Anicteric. CARDIOVASCULAR: Normal S1/S2. LUNGS: Moderate breath sounds, reduced at base. ABDOMEN: Soft, nontender, nondistended. EXTREMITIES: No edema. SKIN: Dry. PSYCHIATRIC: Normal affect. LABS: Reviewed. MEDICATIONS: Reviewed. ASSESSMENT: A 61-year-old woman. 1. Acute exacerbation of chronic obstructive pulmonary disease. 2. Cigarette abuse. 3. Bronchopneumonia. 4. Acute respiratory failure. 5. Underweight state/severe protein calorie malnutrition with bitemporal wasting, prealbumin of 13. 6. Microcytic anemia. PLAN 1. BiPAP at night as needed, on oxygen support, nasal cannula by day. 2. Physical therapy. 3. Steroids. 4. Megace and Ensure. 5. Nicotine patch and loratadine. 6. Discharge planning. Job#: [id number] EV
[2017-05-30] MEDS: IPRATROPIUM BROMIDE 0.02% 2.5 ML NEB NEB SCH (00:15)
[2017-05-30] MEDS: ALBUTEROL SULF 0.083% NEB SOLN 3 ML NEB NEB SCH ×2 (00:15→03:00)
[2017-05-30 01:23] VITALS: BP 128/81
[2017-05-30] MEDS: HYDROCODONE/APAP 10MG-325MG TAB PO PRN ×2 (01:45→08:55)
[2017-05-30] MEDS: AZITHROMYCIN 500MG/NS 250 ML 250 ML IV SCH (04:45)
[2017-05-30] MEDS: CEFTRIAXONE SOD 1 GM VIAL IV SCH (04:50)
[2017-05-30 05:13] VITALS: BP 120/77
[2017-05-30] MEDS: ALPRAZOLAM 0.25 MG TAB PO SCH (06:00)
[2017-05-30] MEDS: GUAIFENESIN/DEXTROMETHORPHAN LIQD 5 ML UDC NG SCH (06:00)
[2017-05-30] MEDS ORDERED: MEGACE ES625 MG/5 M PO (06:21)
[2017-05-30] MEDS ORDERED: NICOTINE PATCH1 EAC1 TD (06:23)
--- NOTE | 2017-05-30 06:54 | Discharge Summary ---
PRINCIPAL DIAGNOSES 1. Acute exacerbation of chronic obstructive pulmonary disease. 2. Cigarette abuse. 3. Bronchopneumonia. 4. Acute respiratory failure. 5. Underweight state. 6. Severe protein calorie malnutrition with bitemporal wasting. Prealbumin 13. 7. Microcytic anemia. SECONDARY DIAGNOSIS: Cigarette abuse. CHIEF COMPLAINT: Shortness of breath. HISTORY OF PRESENT ILLNESS: A 61-year-old woman with shortness of breath. Refer to the H and P for further details. HOSPITAL COURSE: Patient was found to have acute exacerbation of COPD. Received BiPAP support. Symptoms improved. We treated bronchopneumonia with antibiotics. Cigarette abuse and counseled on cessation. Acute respiratory failure has since resolved. She is doing better. She had severe protein calorie malnutrition with bitemporal wasting. Prealbumin of 13. Underweight state. She was provided with diet plan. She had microcytic anemia, which was monitored. Patient is doing better. Currently appropriate for discharge and will follow up. DISCHARGE MEDICATIONS: Per electronic medical record. FOLLOWUP: Primary care doctor in 1 week. CONDITION ON DISCHARGE: Stable and improved. DISCHARGE LOCATION: Home. SHANAE MILLER MD Job#: [id number] IN
--- NOTE | 2017-05-30 07:21 | Progress Note ---
DATE: May 27, 2017 TIME: 6:30 a.m. OVERNIGHT: No events. REVIEW OF SYSTEMS: Denies any dizziness. PHYSICAL EXAMINATION: VITAL SIGNS: Reviewed. GENERAL APPEARANCE: Tired-appearing woman resting in bed. HEENT: Anicteric. CARDIOVASCULAR: Normal S1 and S2. LUNGS: Coarse breath sounds. ABDOMEN: Soft, nontender. EXTREMITIES: No edema. SKIN: Dry. PSYCHIATRIC: Normal affect. LABS: Reviewed. MEDICATIONS: Reviewed. ASSESSMENT: A 61-year-old woman: 1. Acute exacerbation of chronic obstructive pulmonary disease. 2. Cigarette abuse. 3. Bronchopneumonia. 4. Acute respiratory failure. 5. Underweight state/severe protein-calorie malnutrition. 6. Microcytic anemia. PLAN: 1. Continue BiPAP support and oxygen support. 2. Continue physical therapy. 3. Continue steroids, antibiotics, nebs, and oral therapy. 4. Continue Megace and Ensure. 5. Continue nicotine patch. 6. Discharge planning. Job#: [id number]
[2017-05-30 08:00] VITALS: BP 117/75
--- NOTE | 2017-05-30 08:09 | Progress Note ---
DATE: May 27, 2017 TIME: 9 a.m. OVERNIGHT: No events. REVIEW OF SYSTEMS: Denies any dizziness. PHYSICAL EXAMINATION VITAL SIGNS: Reviewed. GENERAL: A tired-appearing woman resting in bed. HEENT: Anicteric. CARDIOVASCULAR: Normal S1 and S2. LUNGS: Moderate breath sounds reduced at the bases. ABDOMEN: Soft and nontender. EXTREMITIES: No edema. SKIN: Dry. PSYCHIATRIC: Flat affect. LABS: Reviewed. MEDICATIONS: Reviewed. ASSESSMENT: A 61-year-old woman with: 1. Acute exacerbation of chronic obstructive pulmonary disease. 2. Cigarette abuse. 3. Bronchopneumonia. 4. Acute respiratory failure. 5. Underweight state/severe protein calorie malnutrition with bitemporal wasting: Prealbumin of 13. 6. Microcytic anemia. PLAN 1. Continue BiPAP support. 2. Continue physical therapy. 3. Continue steroids and nebs. 4. Continue Megace and Ensure. 5. Continue nicotine patch. Job#: [id number] [place]
[2017-05-30] MEDS: FAMOTIDINE 20 MG TAB PO SCH (08:10)
[2017-05-30] MEDS: LORATADINE 10 MG TAB PO SCH (08:30)
[2017-05-30] MEDS: PREDNISONE 20 MG TAB PO SCH (08:33)
[2017-05-30] MEDS: MEGESTROL ACETATE 40 MG TAB PO SCH (08:33)
[2017-05-30] MEDS: BENZONATATE 100 MG CAP PO SCH (08:34)
[2017-05-30] MEDS: NICOTINE 21 MG/EA PATCH TOP SCH (08:34)
[2017-05-30] MEDS: NIFEDIPINE CR 30 MG TAB PO SCH (08:34)
--- NOTE | 2017-06-26 09:50 | Consultation ---
DATE OF CONSULTATION: May 21, 2017 FOLLOWUP PAIN MANAGEMENT CONSULTATION REASON FOR FOLLOWUP CONSULTATION: Pain management. REASON FOR CONSULTATION: Chronic pain, back pain, low back pain, and ongoing pain. HISTORY OF PRESENT ILLNESS: The patient is presenting with multiple issues in the past and complaining of pain issue, especially back pain, low back pain and ongoing pain. She is a heavy smoker also. She gives a history of weight loss also. Most of the pain is back pain and ongoing pain issues. Was seen at the bedside. Complaining of pain at present. Pain is 10/10 on a scale of 0/10 with 10 being constant. It is a sharp feeling, burning and stabbing pain. PAST MEDICAL HISTORY: COPD and smoker, abusing cigarettes every day. Two packs a day. PAST SURGICAL HISTORY: Knee surgery. ALLERGIES: NO KNOWN DRUG ALLERGIES APPARENTLY. PAST SURGICAL HISTORY: Left knee surgery, . SOCIAL HISTORY: She smoked from the age of 16. Almost 1-2 packs a day every day. Denies significant alcohol or drug abuse. 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 A lot of outdoor hobbies. FAMILY HISTORY: Nothing contributory. REVIEW OF SYSTEMS GENERAL: Mild decrease in the weight generally. No double vision. No severe thyroid disease. No asthma. She has COPD because of heavy smoking. No heart attacks. No allergies. No seizures. No rashes. Having arthritis and most back pain, chronic back pain. PHYSICAL EXAMINATION GENERAL: The patient is in pain, but not in acute distress. VITAL SIGNS: Within normal limits. HEENT: Normocephalic. NECK: Supple. LUNGS: Bilaterally with some rhonchi. HEART: Regular rate and rhythm. ABDOMEN: Soft. LABS: Was reviewed. ASSESSMENT AND PLAN: This patient has chronic back pain and ongoing pain. Pain is fairly well new and controlled with intravenous medications. Will continue supportive care. Will follow her closely. Thank you, Dr. Long, for allowing me a chance to participate in the care of Mrs. Billy. Please do not hesitate to contact me if I can help in any way. Job#: [id number] [place]
== END 2017-05-30 10:00 | disposition home or self-care (01) | DRG 871 ==
LOC: ER 01:51 → ERHOLD 04:23 → IMCU 05-23 17:34 → MED/SURG3 05-24 15:02
PROVIDERS: ADMIT Internal Medicine; ATTEND Internal Medicine
PROC: 5A09457 Assistance with Respiratory Ventilation, 24-96 Consecutive Hours, Continuous Positive Airway Pressure (ICD-10-PCS; principal; 2017-05-21)
DX: A41.9 Sepsis, unspecified organism (principal); J18.9 Pneumonia, unspecified organism; J96.01 Acute respiratory failure with hypoxia; E43 Unspecified severe protein-calorie malnutrition; J44.0 Chronic obstructive pulmonary disease with (acute) lower respiratory infection; F17.210 Nicotine dependence, cigarettes, uncomplicated; D50.9 Iron deficiency anemia, unspecified; Z68.1 Body mass index [BMI] 19.9 or less, adult; J44.1 Chronic obstructive pulmonary disease with (acute) exacerbation; R53.81 Other malaise; R53.1 Weakness; R65.20 Severe sepsis without septic shock
CPT/HCPCS: 36415; 71045; 80048; 80053; 82550; 82553; 83605; 83880; 84134; 84443; 84484; 85025; 87040; 87390; 87400; 93005; 94640; 94660; 96367; 96376; 97139; 99285; G0433; G0435; J0456; J0696; J1650; J2920; J7030; J7050

== ENCOUNTER 2017-07-08 19:12 | Inpatient (IN) | payer OTHER ==
[~2017-07-08] VITALS: Ht 160 cm; Wt 36.7 kg
[~2017-07-08 19:12] MED LIST changes: +Anoro Ellipta IH; +IBUPROFEN400 MG PO; +MEGACE ES625 MG/5 M PO; +NICOTINE PATCH1 EAC1 TD; +NORCO 10-325 T1 EACH PO; +PREDNISONE20 MG PO; +PROAIR HFA INH8.5 GM IH
--- OUTSIDE RECORDS SUMMARY | 2017-07-08 19:15 | XMS REPORT ---
Author Author [facility] Address Unknown Phone Unavailable Care Team Providers Care Senior Environmental Scientist Name Role Phone SHANAE MILLER Unavailable Unavailable Problems This patient has no known problems. Allergies, Adverse Reactions, Alerts This patient has no known allergies or adverse reactions. Medications This patient has no known medications. Encounters Start Date/Time End Date/Time Encounter Type Admission Type Attending [facility] Care Facility Care Department Encounter ID 2016-12-27 21:38:05 2016-12-27 21:38:05 Emergency [facility] [id number] 2016-12-27 15:40:05 2016-12-27 15:40:05 Emergency [facility] [id number] 2016-12-27 13:35:06 2016-12-27 13:35:06 Emergency [facility] [id number] 2016-12-27 12:18:57 2016-12-27 12:18:57 Emergency [facility] [id number] Results Test Description Test Time Test Comments Text Results Atomic Results Result Comments CHEST SINGLE (PORTABLE) [facility] [address] [address] Patient Name: KAILEE ORTEGA MR #: [id number] : 1955 Age/Sex: 61/F Req #: [id number] Adm Physician: SHANAE MILLER MD Ordered by: GAEL MALHOTRA MD Report #: [id number] Location: MED/SURG3 Room/Bed: [facility] Procedure: [id number] DX/CHEST SINGLE (PORTABLE) Exam Date: Exam Time: REPORT STATUS: Signed EXAM: CHEST SINGLE (PORTABLE), AP 1 view DATE: 05/25/2017 5:00 AM Time stamp on exam: 0625 hours INDICATION: Pneumonia, shortness of breath COMPARISON: None FINDINGS: LINES/TUBES: None LUNGS: No consolidations or edema. Emphysematous changes. PLEURA: No effusions or pneumothorax. HEART AND MEDIASTINUM: Normal size and contour. BONES AND SOFT TISSUES: No acute findings. IMPRESSION: No evidence of pneumonia. Signed by: Dr. Sara Andre M.D. on 05/25/2017 6:53 AM Dictated By: SARA ANDRE MD 2 Transcribed By: FRANCISCO on 05/25/17652 COPY TO: GAEL MALHOTRA MD CHEST SINGLE (PORTABLE) [address] [address] Patient Name: KAILEE ORTEGA MR #: [id number] : 1955 Age/Sex: 61/F Req #: [id number] Adm Physician: SHANAE MILLER MD Ordered by: GAEL MALOHTRA MD Report #: [id number] Location: [facility] Room/Bed: [place] [address] Procedure: [id number] DX/CHEST SINGLE (PORTABLE) Exam Date: 05/23/17 Exam Time: 0605 REPORT STATUS: Signed Examination: Single AP view of the chest. COMPARISON: 05/22/2017 INDICATION: Pneumonia DISCUSSION: Lungs remain hyperinflated. No focal consolidation, pleural effusion, or pneumothorax. Stable cardiomediastinal contour with atherosclerotic calcification of the thoracic aorta. No pulmonary edema. No acute osseous abnormality. IMPRESSION: Pulmonary hyperinflation compatible with COPD. No consolidative pneumonia. Signed by: Dr. Reyna Pereira M.D. on 05/23/2017 7:06 AM Dictated By: REYNA PEREIRA MD 5 Transcribed By: FRANCISCO on 05/23/17705 COPY TO: GAEL MALHOTRA MD CHEST SINGLE (PORTABLE) [place] [address] Patient Name: KAILEE ORTEGA MR #: [id number] : 1955 Age/Sex: 61/F Req #: [id number] Adm Physician: SHANAE MILLER MD Ordered by: MELISSA NUNEZ MD Report #: [id number] Location: [facility] Room/Bed: [place] [address] ____ Procedure: [id number] DX/CHEST SINGLE (PORTABLE) Exam Date: 05/22/17 Exam Time: 0500 REPORT STATUS: Signed EXAMINATION: CHEST SINGLE (PORTABLE) INDICATION: Pneumonia. COMPARISON: 05/21/2017 FINDINGS: TUBES and LINES: None. LUNGS: Lungs are hyper inflated. Lungs are clear. There is no evidence of pneumonia or pulmonary edema. PLEURA: No pleural effusion or pneumothorax. HEART AND MEDIASTINUM: The cardiomediastinal silhouette is unremarkable. BONES AND SOFT TISSUES: No acute osseous lesion. Soft tissues are unremarkable. UPPER ABDOMEN: No free air under the diaphragm. IMPRESSION: 1. No acute thoracic abnormality. 2. Stable changes of COPD. Signed by: Dr. Julian Rossi M.D. on 05/22/2017 6:03 AM Dictated By: JULIAN SINGH MD 2 Transcribed By: FRANCISCO on 05/22/17602 COPY TO: MELISSA NUNEZ MD CHEST SINGLE (PORTABLE) [place] [address] Patient Name: KAILEE ORTEGA MR #: [id number] : 1955 Age/Sex: 61/F Req #: [id number] Adm Physician: Ordered by: MELISSA NUNEZ MD Report #: [id number] Location: ER Room/Bed: Procedure: [id number] DX/CHEST SINGLE (PORTABLE) Exam Date: 05/21/17 Exam Time: 0214 REPORT STATUS: Signed EXAMINATION: CHEST SINGLE (PORTABLE) INDICATION: Shortness of breath COMPARISON: None FINDINGS: TUBES and LINES: None. LUNGS: Lungs are hyper inflated. Predominantly perihilar and bibasilar opacities. There is mild prominence of the central pulmonary vasculature, consistent with pulmonary venous congestion. PLEURA: No pleural effusion or pneumothorax. HEART AND MEDIASTINUM: The cardiomediastinal silhouette is unremarkable. There are atherosclerotic calcifications within the aorta. BONES AND SOFT TISSUES: No acute osseous lesion. Soft tissues are unremarkable. UPPER ABDOMEN: No free air under the diaphragm. IMPRESSION: Findings in the perihilar and bibasilar regions are compatible with atypical infection. Background of COPD. Signed by: Dr. Julian Rossi M.D. on 05/21/2017 4:10 AM Dictated By: JULIAN SINGH MD 9 Transcribed By: FRANCISCO on 05/21/17409 COPY TO: MELISSA NUNEZ MD
[2017-07-08] MEDS ORDERED: MORPHINE SULFATE 2 MG/ML SYR IV STA (21:34)
[2017-07-08] MEDS ORDERED: ONDANSETRON HCL INJ 2 MG/ML VIAL IV STA (21:35)
[2017-07-08] MEDS ORDERED: MORPHINE SULFATE 2 MG/ML SYR ONE (21:43)
--- NOTE | 2017-07-08 21:44 | Diagnostic Imaging Report ---
HIP RIGHT 2-3 VW (+/- PELVIS) HISTORY: Right hip pain. COMPARISON: None FINDINGS: Bones: Acute, minimally displaced fracture of the right femoral neck There is cephalad and anterior displacement of the distal fragment Joints: Mild degenerative changes of the hips and SI joints Soft tissues: Moderate amount of stool in the colon. IMPRESSION: Acute, displaced fracture of the right femoral neck. Orthopedic consult is recommended. Signed by: Dr. Julian Rossi M.D. on 07/08/2017 9:40 PM
[2017-07-08] MEDS ORDERED: PANTOPRAZOLE 40 MG 10ML VIAL IV STA (21:51)
[2017-07-08] MEDS ORDERED: SODIUM CHLORIDE 0.9% 1000ML 1,000 ML IV STA (21:51)
[2017-07-08] MEDS ORDERED: HYDROMORPHONE 1MG/1ML INJ IV STA (22:08)
[2017-07-08 22:27] LABS: BASOPHILS % 0.2 % (0.0-1.0); EOSINOPHILS # (AUTO) 0.1 (0.0-0.4); EOSINOPHILS % 0.9 % (0.0-6.0); HEMOGLOBIN 13.9 g/dL (12.0-16.0); LYMPHOCYTES # (AUTO) 0.8 (1.0-3.2); LYMPHOCYTES % 6.6 % (18.0-39.1); MEAN CORPUSCULAR HEMOGLOBIN 35.1 pg (28-32); MEAN CORPUSCULAR HGB CONC 34.8 g/dL (31-35); MONOCYTES # (AUTO) 0.8 (0.2-0.8); NEUTROPHILS # (AUTO) 9.6 (2.1-6.9); NEUTROPHILS % 84.9 % (38.7-80.0); PLATELET COUNT 165 x10e3/uL (140-360); RED BLOOD COUNT 3.96 x10e6/uL (3.6-5.1); RED CELL DISTRIBUTION WIDTH 12.6 % (11.7-14.4)
[2017-07-08 22:29] LABS: BILIRUBIN,URINE NEGATIVE (NEGATIVE); KETONES,URINE NEGATIVE (NEGATIVE); LEUKOCYTE ESTERASE ,URINE NEGATIVE (NEGATIVE); NITRITE,URINE NEGATIVE (NEGATIVE); PROTEIN,URINE DIPSTICK NEGATIVE (NEGATIVE); URINE UROBILINOGEN 0.2 mg/dL (0.2 - 1)
[2017-07-08 22:31] LABS: INR 1.02; PROTHROMBIN TIME 12.6 seconds (11.9-14.5)
[2017-07-08 22:32] LABS: PARTIAL THROMBOPLASTIN TIME 27.4 seconds (23.8-35.5)
[2017-07-08 22:43] LABS: CLARITY,URINE CLEAR (CLEAR); COLOR,URINE YELLOW (YELLOW)
[2017-07-08 22:44] LABS: AMORPHOUS SEDIMENT,URINE MODERATE (FEW); BACTERIA,URINE RARE /HPF; EPITHELIAL CELLS,URINE FEW /LPF; RBC,URINE 0-5 /HPF (0-5); WBC,URINE (MAN) 0-5 /HPF (0-5)
--- NOTE | 2017-07-08 23:09 | Diagnostic Imaging Report ---
EXAMINATION: Head and cervical spine CT without contrast. HISTORY: Status post fall, trauma COMPARISON: None. TECHNIQUE: Multidetector axial images were obtained without contrast from the foramen magnum to the vertex and through the cervical spine. The images were reconstructed using brain and bone algorithms. Thin section brain images were reformatted into coronal and sagittal planes. HEAD CT FINDINGS: Skull: No lytic or blastic lesions. No fractures. Parenchyma: Few scatter and mildly confluent mostly bilateral parietal white matter hypodensities, most likely nonspecific chronic microvascular ischemic changes. No mass, hemorrhage or CT evidence of acute vascular insult. Brain volume: Normal for age. Ventricles: No hydrocephalus or displacement. Arteries: No density suggestive of thrombus. Dural sinuses: No abnormal density. Extra-axial spaces: No abnormal density. Foramen magnum: No mass, Chiari malformation, or basilar invagination. Sella: No obvious mass. Paranasal/mastoid sinuses: Imaged portions unremarkable. CERVICAL SPINE CT FINDINGS: Alignment:Normal alignment and lordosis. Age indeterminate likely chronic and degenerative minimal anterolisthesis at C4-C5 and C5-C6. Soft tissues: Normal. Vertebrae: Normal height and density. No acute fracture, infection or neoplasm. Degenerative changes: C1-C2: Degenerative changes without stenoses. C2-C3: Prominent posterior processes mainly on the left. Mild left foraminal stenoses.. C3-C4: Prominent facet arthrosis. Mild foraminal stenoses.. C4-C5: Prominent facet arthrosis mainly on the right. Severe right foraminal stenosis.. C5-C6: Disc osteophyte complex formation, uncovertebral and facet arthrosis minimally and the right. Moderately severe foraminal stenosis. C6-C7: Prominent uncovertebral arthrosis. Moderate right and moderate left foraminal stenosis. C7-T1: Facet arthrosis without stenosis. IMPRESSION: Head CT: 1. No acute traumatic intracranial abnormalities, particularly no hemorrhage 2. Mild chronic microvascular ischemic changes Cervical spine CT: 1. No acute fractures or dislocations. 2. Chronic degenerative changes as described. Note: Acute post traumatic spinal cord, vascular or ligamentous injury cannot adequately be assessed with CT. Signed by: Dr. Yun Betancourt M.D. on 07/08/2017 11:05 PM
[2017-07-08] MEDS: NICOTINE 21 MG/EA PATCH TOP SCH (23:10)
[2017-07-08 23:21] LABS: ALANINE AMINOTRANSFERASE 19 IU/L (0-55); ALBUMIN 4.2 g/dL (3.5-5.0); ALBUMIN/GLOBULIN RATIO 1.1 (0.8-2.0); ALKALINE PHOSPHATASE 83 IU/L (40-150); ANION GAP 15.3 mmol/L (8-16); BLOOD UREA NITROGEN 17 mg/dL (7-26); BUN/CREATININE RATIO 26 (6-25); CALCIUM 9.5 mg/dL (8.4-10.2); CARBON DIOXIDE 27 mmol/L (22-29); CHLORIDE 100 mmol/L (98-107); CREATINE KINASE 391 IU/L (29-168); CREATININE, SERUM 0.66 mg/dL (0.57-1.11); EST GLOMERULAR FILTRATION RATE > 60 ML/MIN (60-); GLUCOSE 105 mg/dL (74-118); MAGNESIUM 1.9 MG/DL (1.3-2.1); POTASSIUM 4.3 mmol/L (3.5-5.1); SODIUM 138 mmol/L (136-145)
--- NOTE | 2017-07-08 23:42 | Diagnostic Imaging Report ---
EXAMINATION: CHEST SINGLE (PORTABLE) INDICATION: Status post fall. COMPARISON: 05/25/2017 FINDINGS: TUBES and LINES: None. LUNGS: Hyperinflated lungs. Lungs are clear. There is mild prominence of the central pulmonary vasculature, consistent with pulmonary venous congestion. PLEURA: No pleural effusion or pneumothorax. HEART AND MEDIASTINUM: The cardiomediastinal silhouette is unremarkable. There are atherosclerotic calcifications within the aorta. BONES AND SOFT TISSUES: No acute osseous lesion. Soft tissues are unremarkable. UPPER ABDOMEN: No free air under the diaphragm. IMPRESSION: 1. No acute thoracic abnormality. 2. Chronic findings of COPD. Signed by: Dr. Julian Rossi M.D. on 07/08/2017 11:38 PM
[2017-07-09] VITALS (9 sets, daily range): BP systolic 71–182; BP diastolic 64–87
[2017-07-09] MEDS ORDERED: METOPROLOL TARTRATE 25 MG TAB PO ONE (00:15)
[2017-07-09] MEDS ORDERED: METOPROLOL TARTRATE INJ 1 MG/ML VIAL IV ONE (00:15)
[2017-07-09] MEDS ORDERED: ACETAMINOPHEN 1000 MG/100 ML IV STA (00:36)
[2017-07-09] MEDS ORDERED: SODIUM CHLORIDE 0.9% 1000ML 1,000 ML ONE (00:37)
[2017-07-09] MEDS ORDERED: ACETAMINOPHEN 1000 MG/100 ML 100 ML IV ONE (00:37)
[2017-07-09 00:56] LABS: AMPHETAMINES SCREEN,URINE NEGATIVE (NEGATIVE); BENZODIAZEPINES SCREEN,URINE NEGATIVE (NEGATIVE); PHENCYCLIDINE SCREEN,URINE NEGATIVE (NEGATIVE)
[2017-07-09] MEDS: SODIUM CHLORIDE 0.9% 1000ML 1,000 ML IV SCH ×3 (01:10→21:13)
[2017-07-09] MEDS ORDERED: IPRATROPIUM BROMIDE 0.02% 2.5 ML NEB NEB PRN (01:15)
[2017-07-09] MEDS ORDERED: METOPROLOL TARTRATE 25 MG TAB PO SCH (01:15)
[2017-07-09] MEDS ORDERED: ALBUTEROL SULF 0.083% NEB SOLN 3 ML NEB NEB PRN (01:15)
[2017-07-09] MEDS: ONDANSETRON HCL INJ 2 MG/ML VIAL IV PRN ×2 (02:35→05:35)
[2017-07-09] MEDS: HYDROMORPHONE 1MG/1ML INJ IV PRN ×4 (02:35→11:53)
[2017-07-09] MEDS ORDERED: GABAPENTIN100 MG PO (05:20)
[2017-07-09] MEDS: METOPROLOL TARTRATE 25 MG TAB PO SCH ×2 (08:44→20:05)
[2017-07-09] MEDS: NICOTINE 21 MG/EA PATCH TOP SCH (08:44)
[2017-07-09] MEDS ORDERED: LOSARTAN POTASSIUM 25 MG TAB PO SCH (10:45)
[2017-07-09] MEDS: KETOROLAC TROMETHAMINE 30 MG/ML VIAL IV PRN ×2 (10:58→21:39)
[2017-07-09] MEDS: ACETAMINOPHEN 325 MG TAB PO PRN (12:28)
[2017-07-09] MEDS ORDERED: AMLODIPINE BESYLATE 5 MG TAB PO PRN (12:30)
[2017-07-09] MEDS ORDERED: CEFAZOLIN SOD 2 GM/D5W 50ML 50 ML IV ONE (13:00)
[2017-07-09 13:57] LABS: CREATINE KINASE MB 3.4 ng/mL (0-5.0)
[2017-07-09 14:01] LABS: ABG HCO3 27 mmol/L (23-28); ABG PCO2 57 mmHg (41-51); ABG PH 7.28 (7.31-7.41); ABG PO2 86 mmHg (80-105)
[2017-07-09 14:32] LABS: FREE THYROXINE INDEX 1.8038 (1.4-3.8); THYROID STIMULATING HORMONE 0.665 uIU/mL (0.350-4.940)
--- NOTE | 2017-07-09 15:08 | Pre Op History & Physical ---
Preop clearance. 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 on July 08, 2017. She is not chronically on steroids. She has a history of COPD, history of old rib fracture with surgical repair, history of degenerative joint disease involving primarily her back, history of knee surgery with left meniscectomy. FAMILY HISTORY: Positive for diabetes and coronary disease. She smokes half a pack and had smoked in the past. 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 She is sedentary. MEDICATIONS: Include Norvasc, albuterol and Busy. She has had chronic back pain. She has a history of COPD. Weight has been stable. She denies sinus problems. She denies psychiatric problems. She denies problems. She admits to COPD. Has not required home oxygen. No history of heart problems, stomach problems, strokes, diabetes. She was found to be hypertensive on her last admission and hypertensive on this admission. According to the record, she has been on steroids, but not now. She takes Neurontin 100 mg at night. No interest in nicotine patch nor Ellipta. PHYSICAL EXAMINATION GENERAL: She is a frail white female complaining of pain in the right hip, which is in traction. VITALS: Temperature 98.6, pulse 105, respirations 20, blood pressure 133/84. HEENT: Head is normocephalic and atraumatic. LUNGS: Diminished breath sounds. HEART: Regular rhythm. ABDOMEN: Nontender. EXTREMITIES: Right leg in traction. Extremities nonedematous. NEUROLOGIC: She is intact. PLAN: Repair of the right femoral neck fracture. Control hypertension. Therapy for COPD. Increased but acceptable surgical risk. EKG reveals a sinus tachycardia and right axis deviation. Dr. Gant has been consulted. Job#: [id number] PR
[2017-07-09] MEDS: ALBUTEROL/IPRATROPIUM 3 ML NEB NEB SCH ×2 (15:20→19:40)
[2017-07-09] MEDS: HYDROCODONE/APAP 10MG-325MG TAB PO PRN ×2 (15:20→19:26)
[2017-07-09] MEDS: LOSARTAN POTASSIUM 25 MG TAB PO SCH (17:27)
[2017-07-09 21:33] LABS: CREATINE KINASE MB 2.9 ng/mL (0-5.0)
[2017-07-09] MEDS ORDERED: SODIUM CHLORIDE 0.9% 1000ML 1,000 ML IV ONE (23:59)
[2017-07-10] MEDS: ALBUTEROL/IPRATROPIUM 3 ML NEB NEB SCH ×6 (01:15→23:45)
[2017-07-10] MEDS: KETOROLAC TROMETHAMINE 30 MG/ML VIAL IV PRN (03:42)
[2017-07-10 05:08] VITALS: BP 177/81
[2017-07-10] MEDS ORDERED: BACITRACIN 50,000 UNIT VIAL ONE (06:26)
[2017-07-10] MEDS: SODIUM CHLORIDE 0.9% 1000ML 1,000 ML IV SCH ×3 (07:00→19:02)
[2017-07-10] MEDS: METOPROLOL TARTRATE 25 MG TAB PO SCH ×2 (07:00→18:43)
[2017-07-10] MEDS ORDERED: CEFAZOLIN SOD 2 GM/D5W 50ML 50 ML IV ONE (07:30)
[2017-07-10 08:00] VITALS: BP 169/77
[2017-07-10] MEDS ORDERED: ONDANSETRON HCL INJ 2 MG/ML VIAL IV PRN (09:15)
[2017-07-10] MEDS ORDERED: HYDROMORPHONE 0.2MG/ML-SOD CHL 30ML PCA SYRINGE IV PRN (09:15)
[2017-07-10] MEDS ORDERED: NALOXONE HCL INJ 0.4 MG/ML AMP IV PRN (09:15)
[2017-07-10] MEDS ORDERED: DIPHENHYDRAMINE HCL INJ 50 MG/ML VIAL IM/IV PRN (09:15)
[2017-07-10] MEDS ORDERED: ACETAMINOPHEN 1000 MG/100 ML IV PRN (09:15)
[2017-07-10] MEDS ORDERED: FENTANYL CITRATE/PF 100MCG/2 ML INJ ONE ×2 (09:26→14:55)
[2017-07-10] MEDS ORDERED: HYDROMORPHONE 0.2MG/ML-SOD CHL 30ML PCA SYRINGE IV ONE (09:45)
--- NOTE | 2017-07-10 09:49 | Diagnostic Imaging Report ---
PROCEDURE:HIP RIGHT 2-3 VW (+/- PELVIS) COMPARISON:None. INDICATIONS:POST RIGHT HIP SURGERY FINDINGS: Postoperative changes of right hip hemiarthroplasty. The femoral stem component is in proper position. No solomon bone or hardware fracture is identified. Skin rand project over the lateral right hip. Normal mineralization. No acute fracture or dislocation. Joint spaces are within normal limits. CONCLUSION: Right hip hemiarthroplasty. Dictated by: Ethan Urbano M.D. on 07/10/2017 at 9:49 Electronically approved by: Ethan Urbano M.D. on 07/10/2017 at 9:49
[2017-07-10 12:23] LABS: BASOPHILS % 0.1 % (0.0-1.0); EOSINOPHILS % 0.1 % (0.0-6.0); HEMOGLOBIN 11.7 g/dL (12.0-16.0); LYMPHOCYTES # (AUTO) 0.2 (1.0-3.2); LYMPHOCYTES % 2.4 % (18.0-39.1); MEAN CORPUSCULAR HEMOGLOBIN 35.1 pg (28-32); MEAN CORPUSCULAR HGB CONC 34.4 g/dL (31-35); MEAN CORPUSCULAR VOLUME 102.1 fL (81-99); MONOCYTES # (AUTO) 0.4 (0.2-0.8); MONOCYTES % 3.8 % (4.4-11.3); NEUTROPHILS % 93.1 % (38.7-80.0); PLATELET COUNT 126 x10e3/uL (140-360); RED BLOOD COUNT 3.33 x10e6/uL (3.6-5.1); RED CELL DISTRIBUTION WIDTH 12.1 % (11.7-14.4)
[2017-07-10 12:37] VITALS: BP 174/77
[2017-07-10 12:42] LABS: ALANINE AMINOTRANSFERASE 17 IU/L (0-55); ALBUMIN 2.8 g/dL (3.5-5.0); ALBUMIN/GLOBULIN RATIO 0.9 (0.8-2.0); ALKALINE PHOSPHATASE 76 IU/L (40-150); ANION GAP 12.2 mmol/L (8-16); BLOOD UREA NITROGEN 8 mg/dL (7-26); BUN/CREATININE RATIO 15 (6-25); CARBON DIOXIDE 25 mmol/L (22-29); CHLORIDE 105 mmol/L (98-107); CHOL/HDL RATIO 4.3 (3.0-3.6); CHOLESTEROL 175 MD/DL (0-199); CREATININE, SERUM 0.55 mg/dL (0.57-1.11); EST GLOMERULAR FILTRATION RATE > 60 ML/MIN (60-); GLUCOSE 112 mg/dL (74-118); HDL CHOLESTEROL 41 MG/DL (40-60); LDL CHOLESTEROL 115 MG/DL (60-130); POTASSIUM 4.2 mmol/L (3.5-5.1); SODIUM 138 mmol/L (136-145); TRIGLYCERIDES 95 MG/DL (0-149)
[2017-07-10] MEDS: NICOTINE 21 MG/EA PATCH TOP SCH (13:14)
[2017-07-10] MEDS: LOSARTAN POTASSIUM 25 MG TAB PO SCH ×2 (13:14→17:00)
--- NOTE | 2017-07-10 13:19 | Operative Report ---
DATE OF PROCEDURE: July 10, 2017 PREOPERATIVE DIAGNOSIS: Displaced right femoral neck fracture. POSTOPERATIVE DIAGNOSIS: Displaced right femoral neck fracture. PROCEDURE PERFORMED: Patient underwent a right uncemented hip hemiarthroplasty with a size 14 Press-Fit stem and size 45 head. SAP PORTAL CONSULTANT: Kelsey Graham. ANESTHESIA: General endotracheal intubation anesthesia. IV FLUIDS: As per the anesthesia record. DESCRIPTION OF PROCEDURE: Ms. Billy was taken to the operating room and placed in the supine position on the operating table. Following induction of general anesthesia as well as endotracheal intubation, the patient was turned with the right side up. She was held in place with well-padded hip positioners. An axillary roll was placed in the left chest wall. The patient's thigh and flank were then prepped and draped in standard surgical fashion. A curvilinear incision centered over the greater trochanter was carried through the skin and subcutaneous tissues to the level of the tensor fascia elke and gluteus camacho fascia. The tensor fascia elke and gluteus camacho fascia were then divided in line with the skin incision. A Charnley retractor was placed within the hip joint. The sciatic nerve was identified and protected throughout the remainder of the case. The short external rotators were elevated from the posterolateral aspect of the femur and reflected posteriorly over the sciatic nerve to protect it throughout the remainder of the case. This revealed a displaced femoral neck fracture. A femoral neck cut was performed. The head was removed from the acetabulum and measured on the back table. Sequential broaching was then undertaken until an appropriate-sized broach was placed within the proximal femur. Care was taken to provide the stem an appropriate amount of inversion during this process. A trial neck and head were affixed to the stem, and the hip was reduced and placed through a range of motion and found to be stable. The trial components were removed. A size 14 Press-Fit femoral stem was inserted into the proximal femur and seated appropriately. The head was affixed to the stem, and the hip was again reduced and placed through motion and found to be stable. The wound was copiously irrigated. The capsule was repaired. The remaining soft tissues were closed in a multilayer fashion. Sterile dressings were applied as well as an abduction pillow, and the patient was awakened and taken to the postanesthesia care unit in stable condition. Kelsey Graham acted as the insurance sales assistant for this case and was necessary for both the prepping and draping of the patient as well as the positioning of the leg and retraction of soft tissues that allowed this case to be successful. Job#: [id number] EV MTDD
[2017-07-10] MEDS ORDERED: ONDANSETRON HCL INJ 2 MG/ML VIAL ONE (13:42)
[2017-07-10] MEDS ORDERED: DEXAMETHASONE SOD PHOS INJ 4 MG/ML VIAL ONE (13:42)
[2017-07-10] MEDS ORDERED: SEVOFLURANE INHAL SOLN 250 ML PEN BTL ONE (13:42)
[2017-07-10] MEDS ORDERED: PROPOFOL IV EMULSION 10 MG/ML 20 ML VIAL ONE (13:42)
[2017-07-10] MEDS ORDERED: ACETAMINOPHEN 1000 MG/100 ML IV ONE (13:42)
[2017-07-10] MEDS ORDERED: LIDOCAINE HCL 2% LOCAL INJ 5 ML SDV VIAL INJ ONE (13:42)
[2017-07-10] MEDS ORDERED: CEFAZOLIN SOD 1 GM/NS 50ML 50 ML IV SCH (14:00)
[2017-07-10] MEDS: CEFAZOLIN SOD 1 GM VIAL IV SCH ×2 (14:00→21:10)
[2017-07-10 17:01] VITALS: BP 165/72
[2017-07-10] MEDS: VANCOMYCIN 500MG/NS 0.9% 100ML 100 ML IV SCH (17:30)
[2017-07-10 20:00] VITALS: BP 165/74
[2017-07-10] MEDS ORDERED: ZOLPIDEM TARTRATE 5 MG TAB PO PRN (21:00)
[2017-07-10] MEDS: ACETAMINOPHEN 325 MG TAB PO PRN (21:16)
[2017-07-11] VITALS (7 sets, daily range): BP systolic 129–184; BP diastolic 62–79
[2017-07-11] MEDS: SODIUM CHLORIDE 0.9% 1000ML 1,000 ML IV SCH ×2 (05:19→12:56)
[2017-07-11] MEDS: VANCOMYCIN 500MG/NS 0.9% 100ML 100 ML IV SCH (05:24)
[2017-07-11] MEDS: CEFAZOLIN SOD 1 GM VIAL IV SCH ×3 (05:24→22:57)
[2017-07-11 06:48] LABS: HEMATOCRIT 25.7 % (34.2-44.1)
[2017-07-11] MEDS: ALBUTEROL/IPRATROPIUM 3 ML NEB NEB SCH ×4 (07:00→20:45)
[2017-07-11] MEDS: METOPROLOL TARTRATE 25 MG TAB PO SCH ×2 (07:00→19:42)
[2017-07-11] MEDS: FENTANYL 25 MCG/HR PATCH TOP SCH (08:30)
[2017-07-11] MEDS: LOSARTAN POTASSIUM 25 MG TAB PO SCH ×2 (09:00→16:45)
[2017-07-11] MEDS: NICOTINE 21 MG/EA PATCH TOP SCH (09:00)
[2017-07-11] MEDS ORDERED: CEFAZOLIN SOD 1 GM/NS 50ML 50 ML IV SCH (14:00)
[2017-07-11 14:43] LABS: % IRON SATURATION 15 % (15-50); IRON 33 ug/dL (50-170); TOTAL IRON BINDING CAPACITY 221 ug/dL (261-478); TRANSFERRIN 158 mg/dL (180-382)
--- NOTE | 2017-07-11 14:57 | Consultation ---
DATE OF CONSULTATION: July 11, 2017 REASON FOR CONSULTATION: Fever. HISTORY OF PRESENT ILLNESS: This is a very pleasant 61-year-old white female who was admitted on 07/09/2017 to [facility] after a fall. Apparently she slipped on a wet garage floor in the afternoon of July 08. She had had severe pain in her hip on the left. Patient is known to have history of COPD, history of old rib fracture, history of degenerative joint disease, probably also osteoporosis. The patient is very thin lady. So she came to the hospital with pain. She does have history of smoking. She used to smoke half a pack a day for several years. Quit several months ago. 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 Not an active life at the present time. So she comes with hip pain. Patient was seen by orthopedic. Patient underwent surgery. Infectious disease. Patient had fever. She had the surgery yesterday in the morning. She had fever yesterday at night. Today, infectious disease was consulted. When I saw the patient, she was lying in bed comfortably. She has some pain in the hip where she had the surgery, but otherwise she says she is feeling well. There is no shortness of breath, no cough, no urgency, no frequency, no skin rash, no other joint swelling or redness that she can think of. This patient has chronic back pain and she has a history of hypertension and COPD. She was on steroids before but not recently. She is on Neurontin at night. Apparently she has tried to cut down on her smoking. Patient was admitted with right femoral neck fracture. She was seen by orthopedic. Patient underwent surgery by Dr. Gant on July 09 under general anesthesia. Patient has no fever as mentioned above, and infectious disease was consulted. When I saw the patient, she has no new complaints whatsoever. I reviewed with her 14 points. Except the pain, she denies any other. She does not feel bad. She does feel a little fever comes on. She had no fever before she came here. HEENT: There is no headache, visual changes, hearing change. No sinus congestion. GI: There is no nausea, no vomiting, no diarrhea. Cardiac: There is no arrhythmia or chest pain. Neuro: No seizure activity or local weakness. Skin: There is no rash. Joint: There is no acute redness or swelling or pain. Genitourinary negative. GI negative. Psych negative. Neuro negative. Endo negative. Hem negative. All negative. PHYSICAL EXAMINATION GENERAL: She is currently alert, oriented. Does not seem to be in acute distress. VITALS: Stable, currently afebrile. However, she had T-max of 100.2 on 2 occasions. HEENT: She is not icteric. NECK: Supple. CHEST: Clear. COR: S1, S2. No S3, S4 or murmur. ABDOMEN: Soft. Bowel sounds present. No tenderness. EXTREMITIES: No edema. SKIN: No skin rash. Blood cultures on admission showed alpha-hemolytic strep count on 07/09 and then coagulase-negative staph, but she had 2 sets of alpha-hemolytic strep. Her white count is 9.66, hemoglobin 11.77, hematocrit is 34. Her platelet of 426 came down to 165. Sodium 138, potassium 4.2, creatinine of 0.55. Liver enzyme within normal limits. MEDICATION LIST: Reviewed. She is currently on nicotine, fentanyl, Dilaudid, acetaminophen, ibuprofen, Zofran, cefazolin. PHYSICAL EXAMINATION GENERAL: She is currently alert, oriented. Does not seem to be in acute distress. VITALS: Stable. Currently afebrile. HEENT: She is not icteric. NECK: Supple. CHEST: Clear. COR: No murmur. ABDOMEN: Soft. EXTREMITIES: The hip looked good. IMPRESSION: Bacteremia with alpha streptococcus. Source is unclear. I will agree with cephazolin. Can continue the above. She will need 14 days of antibiotic. I would recommend to recheck a blood culture. Also recommend to obtain echocardiogram. Will discuss with Dr. Khanna. Recheck CBC. Recheck chem panel. Further recommendations to follow. Thank you. Job#: [id number] [place]
[2017-07-11] MEDS: RIVAROXABAN 10 MG TABLET PO SCH (16:46)
[2017-07-11] MEDS: ACETAMINOPHEN 325 MG TAB PO PRN (20:30)
[2017-07-12] VITALS (8 sets, daily range): BP systolic 133–174; BP diastolic 59–81
[2017-07-12] MEDS: ALBUTEROL/IPRATROPIUM 3 ML NEB NEB SCH ×4 (01:15→21:05)
[2017-07-12] MEDS: ACETAMINOPHEN 325 MG TAB PO PRN ×2 (05:17→16:27)
[2017-07-12] MEDS: CEFAZOLIN SOD 1 GM VIAL IV SCH ×3 (05:17→21:55)
[2017-07-12] MEDS: METOPROLOL TARTRATE 25 MG TAB PO SCH ×2 (06:52→19:50)
[2017-07-12 07:10] LABS: BASOPHILS % 0.2 % (0.0-1.0); EOSINOPHILS # (AUTO) 0.1 (0.0-0.4); EOSINOPHILS % 2.1 % (0.0-6.0); HEMATOCRIT 26.7 % (34.2-44.1); HEMOGLOBIN 9.5 g/dL (12.0-16.0); LYMPHOCYTES # (AUTO) 0.6 (1.0-3.2); MEAN CORPUSCULAR HEMOGLOBIN 35.6 pg (28-32); MEAN CORPUSCULAR HGB CONC 35.6 g/dL (31-35); MONOCYTES # (AUTO) 0.6 (0.2-0.8); MONOCYTES % 10.3 % (4.4-11.3); NEUTROPHILS # (AUTO) 4.3 (2.1-6.9); PLATELET COUNT 134 x10e3/uL (140-360); RED BLOOD COUNT 2.67 x10e6/uL (3.6-5.1); RED CELL DISTRIBUTION WIDTH 11.9 % (11.7-14.4)
[2017-07-12 07:42] LABS: ANION GAP 12.3 mmol/L (8-16); BLOOD UREA NITROGEN 5 mg/dL (7-26); BUN/CREATININE RATIO 9 (6-25); CARBON DIOXIDE 28 mmol/L (22-29); CHLORIDE 101 mmol/L (98-107); CREATININE, SERUM 0.55 mg/dL (0.57-1.11); EST GLOMERULAR FILTRATION RATE > 60 ML/MIN (60-); GLUCOSE 108 mg/dL (74-118); POTASSIUM 3.3 mmol/L (3.5-5.1); SODIUM 138 mmol/L (136-145)
[2017-07-12] MEDS ORDERED: POTASSIUM CHLORIDE 20 MEQ TAB CR PO PRN (08:15)
[2017-07-12] MEDS: LOSARTAN POTASSIUM 25 MG TAB PO SCH ×2 (08:25→16:27)
[2017-07-12] MEDS: NICOTINE 21 MG/EA PATCH TOP SCH (08:25)
[2017-07-12] MEDS: SODIUM CHLORIDE 0.9% 1000ML 1,000 ML IV SCH (11:02)
[2017-07-12] MEDS: RIVAROXABAN 10 MG TABLET PO SCH (16:27)
[2017-07-12] MEDS: HYDROCODONE/APAP 10MG-325MG TAB PO PRN ×2 (17:34→21:55)
[2017-07-12] MEDS: HYDROMORPHONE 1MG/1ML INJ IV PRN ×2 (18:30→22:43)
[2017-07-13] VITALS (8 sets, daily range): BP systolic 106–147; BP diastolic 51–68
[2017-07-13] MEDS: ALBUTEROL/IPRATROPIUM 3 ML NEB NEB SCH ×4 (01:40→19:08)
[2017-07-13] MEDS: HYDROCODONE/APAP 10MG-325MG TAB PO PRN ×5 (02:01→20:40)
[2017-07-13] MEDS: HYDROMORPHONE 1MG/1ML INJ IV PRN ×5 (03:27→23:40)
[2017-07-13] MEDS: CEFAZOLIN SOD 1 GM VIAL IV SCH ×3 (06:36→22:02)
[2017-07-13] MEDS: SODIUM CHLORIDE 0.9% 1000ML 1,000 ML IV SCH (07:02)
[2017-07-13] MEDS: METOPROLOL TARTRATE 25 MG TAB PO SCH ×2 (08:11→19:45)
[2017-07-13] MEDS: LOSARTAN POTASSIUM 25 MG TAB PO SCH ×2 (08:11→16:42)
[2017-07-13] MEDS: NICOTINE 21 MG/EA PATCH TOP SCH (08:11)
[2017-07-13] MEDS: KETOROLAC TROMETHAMINE 30 MG/ML VIAL IV PRN ×2 (10:07→22:19)
[2017-07-13] MEDS: RIVAROXABAN 10 MG TABLET PO SCH (16:07)
[2017-07-14] VITALS (9 sets, daily range): BP systolic 98–151; BP diastolic 53–68
[2017-07-14] MEDS: ALBUTEROL/IPRATROPIUM 3 ML NEB NEB SCH ×4 (01:17→20:35)
[2017-07-14] MEDS: SODIUM CHLORIDE 0.9% 1000ML 1,000 ML IV SCH (03:02)
[2017-07-14] MEDS: HYDROMORPHONE 1MG/1ML INJ IV PRN ×4 (05:28→21:29)
[2017-07-14] MEDS: CEFAZOLIN SOD 1 GM VIAL IV SCH ×3 (05:28→22:00)
[2017-07-14] MEDS: METOPROLOL TARTRATE 25 MG TAB PO SCH ×2 (06:08→20:21)
[2017-07-14 06:53] LABS: BASOPHILS % 0.2 % (0.0-1.0); EOSINOPHILS # (AUTO) 0.2 (0.0-0.4); EOSINOPHILS % 3.3 % (0.0-6.0); LYMPHOCYTES # (AUTO) 0.6 (1.0-3.2); LYMPHOCYTES % 13.2 % (18.0-39.1); MEAN CORPUSCULAR HEMOGLOBIN 34.8 pg (28-32); MEAN CORPUSCULAR HGB CONC 34.2 g/dL (31-35); MEAN CORPUSCULAR VOLUME 101.8 fL (81-99); MONOCYTES # (AUTO) 0.6 (0.2-0.8); MONOCYTES % 12.3 % (4.4-11.3); NEUTROPHILS # (AUTO) 3.4 (2.1-6.9); NEUTROPHILS % 70.6 % (38.7-80.0); PLATELET COUNT 143 x10e3/uL (140-360); RED BLOOD COUNT 2.24 x10e6/uL (3.6-5.1); RED CELL DISTRIBUTION WIDTH 12.2 % (11.7-14.4)
[2017-07-14 07:11] LABS: HEMATOCRIT 22.8 % (34.2-44.1); HEMOGLOBIN 7.8 g/dL (12.0-16.0)
[2017-07-14 07:31] LABS: ALANINE AMINOTRANSFERASE 14 IU/L (0-55); ALBUMIN 2.5 g/dL (3.5-5.0); ALBUMIN/GLOBULIN RATIO 0.8 (0.8-2.0); ALKALINE PHOSPHATASE 73 IU/L (40-150); ANION GAP 12.7 mmol/L (8-16); BLOOD UREA NITROGEN 12 mg/dL (7-26); BUN/CREATININE RATIO 22 (6-25); CALCIUM 8.8 mg/dL (8.4-10.2); CARBON DIOXIDE 32 mmol/L (22-29); CHLORIDE 99 mmol/L (98-107); CREATININE, SERUM 0.55 mg/dL (0.57-1.11); EST GLOMERULAR FILTRATION RATE > 60 ML/MIN (60-); GLUCOSE 101 mg/dL (74-118); POTASSIUM 4.7 mmol/L (3.5-5.1); SODIUM 139 mmol/L (136-145)
--- NOTE | 2017-07-14 08:29 | Diagnostic Imaging Report ---
PROCEDURE: X-RAY CHEST, TWO VIEWS COMPARISON: Patients [facility], DX, CHEST SINGLE (PORTABLE), 07/08/2017, 22:08. INDICATIONS: COUGH, PNEUMONIA FINDINGS: LUNGS: The lungs remain hyperexpanded consistent with COPD. No consolidation. Prominent nipple shadows. PLEURA: No effusions or pneumothorax. HEART \T\ MEDIASTINUM: The heart is within normal size-limits. BONES \T\ SOFT TISSUES: No acute findings. CONCLUSION: No acute thoracic abnormality or interval change. Ángel Phipps D.O. Dictated by: Ángel Phipps D.O. on 07/14/2017 at 8:29 Electronically approved by: Ángel Phipps D.O. on 07/14/2017 at 8:29
[2017-07-14] MEDS: LOSARTAN POTASSIUM 25 MG TAB PO SCH ×2 (09:00→17:35)
[2017-07-14] MEDS: NICOTINE 21 MG/EA PATCH TOP SCH (09:32)
[2017-07-14] MEDS: HYDROCODONE/APAP 10MG-325MG TAB PO PRN ×2 (10:00→15:17)
[2017-07-14] MEDS: FENTANYL 25 MCG/HR PATCH TOP SCH (12:23)
--- NOTE | 2017-07-14 14:22 | Diagnostic Imaging Report ---
PROCEDURE: CT scan of the chest WITH intravenous contrast, using PE protocol. TECHNIQUE: The chest was scanned utilizing a multidetector helical scanner from the lung apex through the level of the adrenal glands after the IV administration of 100 cc of Isovue 370, with special concentration in the pulmonary arteries. Coronal and sagittal multiplanar reformations were obtained. COMPARISON: None. INDICATIONS: SHORTNESS OF BREATH FINDINGS: Lines/tubes: None. Lungs and Airways: No filling defects in the main, right or left pulmonary arteries or their segmental level to suggest pulmonary embolism. Mild bilateral centrilobular emphysematous changes, predominantly in the upper lobes. Mild compressive atelectasis of the right lower lobe. Linear opacities in the left lower lobe likely represent subsegmental atelectasis or scarring. No consolidation. Mild centrilobular septal thickening in the apices 2-3 mm pulmonary nodule in the lateral right upper lobe (series 3, image 54). No other nodules. No masses. Pleura: Tiny right-sided pleural effusion. Heart and mediastinum: Thyroid is unremarkable. The heart size is normal. There is thickening of the left ventricle. The no pericardial effusion. Atherosclerotic calcification of the coronary arteries and thoracic aortic arch. Aorta is non-aneurysmal. Main pulmonary artery is normal in caliber, measuring 2.5 cm. Lymph nodes: No mediastinal, hilar, or axillary adenopathy. Abdomen: Limited contrast-enhanced views of the upper abdomen show no abnormality within the visualized spleen, pancreas, or left kidney. 1.0 cm subcapsular fat and calcium containing lesion in hepatic segment VIII (series 2 image 110 and coronal image 42). The adrenal glands are normal. Bones: No aggressive lytic lesion. Degenerative changes in the thoracic spine. IMPRESSION: 1. no CT evidence of pulmonary embolism. 2. Mild bilateral centrilobular emphysematous changes, predominantly in the upper lobes. 3. Tiny right-sided pleural effusion with mild compressive atelectasis of the right lower lobe. 4. Mild central septal thickening in the apices. This may reflect mild interstitial edema, particularly given the left ventricular hypertrophy. 5. 2-3 mm pulmonary nodule in the lateral right upper lobe. Consider followup noncontrast low dose nodule protocol chest CT in 12 months. 6. Indeterminate 1.0 cm fat and calcium containing lesion in hepatic segment VIII.. This may represent a small adenoma. Zhen Cuenca M.D. Dictated by: Zhen Cuenca M.D. on 07/14/2017 at 14:21 Electronically approved by: Zhen Cuenca M.D. on 07/14/2017 at 14:21
[2017-07-14] MEDS: RIVAROXABAN 10 MG TABLET PO SCH (17:35)
[2017-07-14] MEDS ORDERED: SODIUM CHLORIDE 0.9% 50ML 50 ML ONE (20:13)
[2017-07-14] MEDS ORDERED: IOPAMIDOL 370 MG/ML 200 ML INFUS..BTL INJ ONE (20:14)
[2017-07-15] VITALS (7 sets, daily range): BP systolic 105–154; BP diastolic 55–80
[2017-07-15] MEDS: HYDROCODONE/APAP 10MG-325MG TAB PO PRN ×3 (00:15→19:49)
[2017-07-15] MEDS: HYDROMORPHONE 1MG/1ML INJ IV PRN ×4 (02:00→21:43)
[2017-07-15] MEDS: ALBUTEROL/IPRATROPIUM 3 ML NEB NEB SCH ×4 (02:18→19:25)
[2017-07-15] MEDS: CEFAZOLIN SOD 1 GM VIAL IV SCH ×3 (05:16→22:23)
[2017-07-15] MEDS: NICOTINE 21 MG/EA PATCH TOP SCH (08:26)
[2017-07-15] MEDS: METOPROLOL TARTRATE 25 MG TAB PO SCH ×2 (08:26→20:30)
[2017-07-15] MEDS: LOSARTAN POTASSIUM 25 MG TAB PO SCH ×2 (08:26→16:16)
--- NOTE | 2017-07-15 11:44 | Progress Note ---
DATE: July 14, 2017 FOLLOWUP PAIN MANAGEMENT PROGRESS NOTE The patient has had chronic pain, chronic back pain, COPD. She had a fall that effected the femoral neck on the right side. She underwent closed surgery. codeine. She has had pain management with current medications administered. The pain is 2 to 10 out of 10 on the sale of 0 to 10, with zero being no pain and 10 being the worst pain. It is constant, aching, and dull pain. PHYSICAL EXAMINATION GENERAL: The patient is in pain but not in acute distress. VITAL SIGNS: Temperature 97, heart rate 80, blood pressure 105/55, respirations 20, saturation 99%. Height 5 feet 3 inches, weight 81 pounds. HEENT: Normocephalic. NECK: Supple. LUNGS: Clear bilaterally. HEART: Regular rate and rhythm. ABDOMEN: Soft and nontender. EXTREMITIES: No edema. NEUROLOGIC: Grossly nonfocal. LABORATORY DATA: Reviewed. Hemoglobin 7.8, hematocrit 22.2. ASSESSMENT AND PLAN: Hydromorphone 1 mg q.4 h. along with , and also getting hydrocodone 10 q.4 h. p.r.n. pain. The patient was seen, interviewed and examined, counseled and plan discussed. Thank you Dr. Orr for this consultation. I will follow with you. Job#: [id number]
[2017-07-15 14:28] LABS: BASOPHILS % 0.4 % (0.0-1.0); EOSINOPHILS # (AUTO) 0.2 (0.0-0.4); EOSINOPHILS % 3.5 % (0.0-6.0); HEMATOCRIT 25.7 % (34.2-44.1); HEMOGLOBIN 8.6 g/dL (12.0-16.0); LYMPHOCYTES # (AUTO) 0.7 (1.0-3.2); LYMPHOCYTES % 14.4 % (18.0-39.1); MEAN CORPUSCULAR HEMOGLOBIN 34.8 pg (28-32); MEAN CORPUSCULAR HGB CONC 33.5 g/dL (31-35); MONOCYTES # (AUTO) 0.7 (0.2-0.8); MONOCYTES % 13.3 % (4.4-11.3); NEUTROPHILS # (AUTO) 3.3 (2.1-6.9); PLATELET COUNT 197 x10e3/uL (140-360); RED BLOOD COUNT 2.47 x10e6/uL (3.6-5.1); RED CELL DISTRIBUTION WIDTH 12.5 % (11.7-14.4)
[2017-07-15 14:43] LABS: BLOOD UREA NITROGEN 12 mg/dL (7-26); BUN/CREATININE RATIO 21 (6-25); CARBON DIOXIDE 35 mmol/L (22-29); CHLORIDE 95 mmol/L (98-107); CREATININE, SERUM 0.58 mg/dL (0.57-1.11); EST GLOMERULAR FILTRATION RATE > 60 ML/MIN (60-); GLUCOSE 96 mg/dL (74-118); SODIUM 139 mmol/L (136-145)
[2017-07-15] MEDS: RIVAROXABAN 10 MG TABLET PO SCH (16:16)
[2017-07-15] MEDS: ACETAMINOPHEN 325 MG TAB PO PRN (16:16)
[2017-07-16] VITALS (8 sets, daily range): BP systolic 108–136; BP diastolic 53–61
[2017-07-16] MEDS: ALBUTEROL/IPRATROPIUM 3 ML NEB NEB SCH ×4 (02:50→19:15)
[2017-07-16] MEDS: HYDROMORPHONE 1MG/1ML INJ IV PRN ×5 (02:56→23:28)
[2017-07-16] MEDS: CEFAZOLIN SOD 1 GM VIAL IV SCH ×3 (05:14→21:28)
[2017-07-16] MEDS: LOSARTAN POTASSIUM 25 MG TAB PO SCH ×2 (08:05→17:07)
[2017-07-16] MEDS: NICOTINE 21 MG/EA PATCH TOP SCH (08:05)
[2017-07-16] MEDS: METOPROLOL TARTRATE 25 MG TAB PO SCH ×2 (08:05→20:55)
[2017-07-16] MEDS: HYDROCODONE/APAP 10MG-325MG TAB PO PRN ×3 (12:08→21:09)
--- NOTE | 2017-07-16 16:14 | Discharge Summary ---
FINAL DIAGNOSES 1. Displaced right femoral neck fracture, status post repair by Dr. Gant on July 10, 2017. 2. Acute pain due to fracture. Pain management was consulted. 3. History of smoking. 4. Streptococcus species bacteremia. ADMISSION HISTORY AND HOSPITAL COURSE: Ms. Billy is a 61-year-old female who was admitted on July 09, 2017. She presented after a fall and resulted in right femoral neck fracture. The patient underwent surgery by Dr. Gant. Postoperatively, the patient started having severe pain. Dr. Agudelo was consulted for pain management and he adjusted the pain medications. The patient started feeling better. Her blood cultures were positive for alpha hemolytic Strept species. Infectious disease was consulted. The patient is doing very well with IV antibiotics. Dr. Alaniz recommended p.o. Levaquin on discharge. Physical therapy evaluation and treatment was done and she has been recommended outpatient and home physical therapy. The patient had an episode of low oxygen saturation that resulted in ordering CT chest which showed bilateral emphysematous changes, central lobular emphysema. She did not show any evidence of pulmonary embolism. Showed 3 mm pulmonary nodule. She has been recommended to follow up with [facility] as an outpatient for her pulmonary issues and COPD. She will follow up with her primary care physician as an outpatient. DISCHARGE MEDICATIONS: List reviewed. EUNICE VELASCO MD Job#: [id number]
[2017-07-16] MEDS: RIVAROXABAN 10 MG TABLET PO SCH (17:07)
--- NOTE | 2017-07-17 00:42 | Progress Note ---
DATE: July 16, 2017 Ms. Billy is doing slowly better, continued to have some shortness of breath. There are no new complaints overall. PHYSICAL EXAMINATION: GENERAL: She is alert, oriented, does not seem to be in acute distress. VITAL SIGNS: Stable currently. Temperature 98.0, heart rate 88, respiration 18, blood pressure 136/58. She has no fever. T-max was 100.1 on July the . HEENT: She does not appear icteric. NECK: Supple. CHEST: Few crackles bilaterally. COR: S1 and S2. No S3, S4, murmur. ABDOMEN: Soft. Bowel sounds present. No tenderness. EXTREMITIES: No edema. IMPRESSION: 1. Sepsis, alpha streptococcus bacteremia, resolved. Can be discharged home with Levaquin 500 mg p.o. daily for 10 more days. 2. Displaced right femoral neck fracture, status post repair by Dr. Gant, July 10. Acute pain due to fracture. 3. History of smoking. Patient can be discharged once by critical care. Job#: [id number]
[2017-07-17 01:10] VITALS: BP 141/61
[2017-07-17] MEDS: ALBUTEROL/IPRATROPIUM 3 ML NEB NEB SCH ×2 (01:15→07:00)
[2017-07-17] MEDS: HYDROMORPHONE 1MG/1ML INJ IV PRN ×2 (04:40→09:02)
[2017-07-17 04:49] VITALS: BP 133/60
[2017-07-17] MEDS: CEFAZOLIN SOD 1 GM VIAL IV SCH (05:51)
[2017-07-17] MEDS: METOPROLOL TARTRATE 25 MG TAB PO SCH (06:04)
[2017-07-17 07:17] LABS: BASOPHILS % 0.2 % (0.0-1.0); EOSINOPHILS # (AUTO) 0.2 (0.0-0.4); EOSINOPHILS % 3.7 % (0.0-6.0); HEMATOCRIT 28.3 % (34.2-44.1); HEMOGLOBIN 9.4 g/dL (12.0-16.0); LYMPHOCYTES # (AUTO) 1.1 (1.0-3.2); LYMPHOCYTES % 20.5 % (18.0-39.1); MEAN CORPUSCULAR HEMOGLOBIN 35.2 pg (28-32); MEAN CORPUSCULAR HGB CONC 33.2 g/dL (31-35); MONOCYTES # (AUTO) 0.8 (0.2-0.8); MONOCYTES % 14.6 % (4.4-11.3); NEUTROPHILS # (AUTO) 3.1 (2.1-6.9); NEUTROPHILS % 60.2 % (38.7-80.0); PLATELET COUNT 265 x10e3/uL (140-360); RED BLOOD COUNT 2.67 x10e6/uL (3.6-5.1); RED CELL DISTRIBUTION WIDTH 12.9 % (11.7-14.4)
[2017-07-17 07:30] VITALS: BP 135/59
[2017-07-17] MEDS: LOSARTAN POTASSIUM 25 MG TAB PO SCH (07:30)
[2017-07-17] MEDS: NICOTINE 21 MG/EA PATCH TOP SCH (07:30)
[2017-07-17] MEDS: HYDROCODONE/APAP 10MG-325MG TAB PO PRN (07:30)
[2017-07-17 07:39] LABS: ANION GAP 12.9 mmol/L (8-16); BLOOD UREA NITROGEN 10 mg/dL (7-26); BUN/CREATININE RATIO 17 (6-25); CALCIUM 9.1 mg/dL (8.4-10.2); CARBON DIOXIDE 29 mmol/L (22-29); CHLORIDE 94 mmol/L (98-107); CREATININE, SERUM 0.58 mg/dL (0.57-1.11); EST GLOMERULAR FILTRATION RATE > 60 ML/MIN (60-); GLUCOSE 106 mg/dL (74-118); POTASSIUM 3.9 mmol/L (3.5-5.1); SODIUM 132 mmol/L (136-145)
[2017-07-17 07:40] VITALS: BP 135/59
--- NOTE | 2017-07-17 14:27 | Discharge Summary ---
FINAL DIAGNOSES 1. Displaced femoral neck fracture, status post repair by Dr. Gant. 2. Acute pain after fracture. 3. Streptococcus species bacteremia. 4. History of smoking. ADMISSION HISTORY AND HOSPITAL COURSE: Ms. Billy is a 61-year-old female, admitted after a fall resulting in femoral neck fracture. Patient underwent surgery by Dr. Gant. She has been doing well. CT chest showing emphysematous changes, was done to rule out pulmonary embolism. Patient has been doing well. She had strep species bacteremia, for which Dr. Alaniz was consulted and he cleared the patient. She will be discharged home on p.o. Levaquin, Xarelto for DVT prophylaxis, and Tylenol No. 4 for pain control. She will follow up with primary care physician in 3 to 4 weeks. DISCHARGE MEDICATIONS: Reviewed. EUNICE VELASCO MD Job#: [id number] [facility]
== END 2017-07-17 11:27 | disposition home or self-care (01) | DRG 470 ==
LOC: ER 19:12 → ERHOLD 07-09 01:25 → MED/SURG 07-09 01:41
PROVIDERS: ADMIT Internal Medicine; ATTEND Internal Medicine
PROC: 0SRS0JZ Replacement of Left Hip Joint, Femoral Surface with Synthetic Substitute, Open Approach (ICD-10-PCS; principal; 2017-07-10 07:00)
DX: S72.002A Fracture of unspecified part of neck of left femur, initial encounter for closed fracture (principal); Z99.81 Dependence on supplemental oxygen; R78.81 Bacteremia; I47.1 Supraventricular tachycardia; W01.0XXA Fall on same level from slipping, tripping and stumbling without subsequent striking against object, initial encounter; J43.8 Other emphysema; M19.90 Unspecified osteoarthritis, unspecified site; R91.1 Solitary pulmonary nodule; M54.9 Dorsalgia, unspecified; G89.29 Other chronic pain; R09.02 Hypoxemia; M81.0 Age-related osteoporosis without current pathological fracture; D64.9 Anemia, unspecified; B95.0 Streptococcus, group A, as the cause of diseases classified elsewhere; Y92.008 Other place in unspecified non-institutional (private) residence as the place of occurrence of the external cause; Z87.891 Personal history of nicotine dependence
CPT/HCPCS: 36415; 36600; 51700; 70450; 71045; 71046; 71260; 72125; 80048; 80053; 80061; 80307; 81001; 82306; 82550; 82553; 82805; 82948; 83540; 83735; 84436; 84443; 84466; 84479; 84484; 85014; 85018; 85025; 85610; 85730; 86850; 86900; 87040; 87071; 87086; 87205; 93005; 93306; 94640; 97139; 99284; J0690; J1100; J1170; J1885; J2001; J2270; J2405; J3370; J7030; Q9967

== ENCOUNTER 2017-11-15 17:34 | Inpatient (IN) | payer OTHER ==
[~2017-11-15] VITALS: Ht 160 cm; Wt 38.6 kg
[~2017-11-15 17:34] MED LIST changes: +GABAPENTIN100 MG PO
[2017-11-15] MEDS ORDERED: ENALAPRILAT IV INJ 1.25 MG/ML VIAL IV STA (17:46)
[2017-11-15] MEDS ORDERED: SODIUM CHLORIDE 0.9% 1000ML 1,000 ML IV STA (17:46)
[2017-11-15] MEDS ORDERED: DIATRIZOATE MEGL/DIATRIZOA SOD 30 ML BTL PO ONE (17:58)
[2017-11-15] MEDS ORDERED: ALBUTEROL/IPRATROPIUM 3 ML NEB NEB PRN (18:00)
[2017-11-15] MEDS ORDERED: FAMOTIDINE 20 MG/2 ML VIAL IV ONE (18:00)
[2017-11-15] MEDS ORDERED: PROMETHAZINE 12.5MG/ NACL 0.9% 12.5 MG/50 ML BAG IV ONE (18:00)
[2017-11-15] MEDS ORDERED: MORPHINE SULFATE INJ 4 MG/ML INJ IV ONE (18:00)
[2017-11-15] MEDS ORDERED: SODIUM CHLORIDE 0.9% 500ML 500 ML IV ONE (18:00)
[2017-11-15 18:30] LABS: BASOPHILS % 0.3 % (0.0-1.0); HEMATOCRIT 45.4 % (34.2-44.1); HEMOGLOBIN 16.2 g/dL (12.0-16.0); LYMPHOCYTES # (AUTO) 0.5 (1.0-3.2); LYMPHOCYTES % 5.2 % (18.0-39.1); MEAN CORPUSCULAR HEMOGLOBIN 33.3 pg (28-32); MEAN CORPUSCULAR HGB CONC 35.7 g/dL (31-35); MEAN CORPUSCULAR VOLUME 93.4 fL (81-99); MONOCYTES # (AUTO) 0.6 (0.2-0.8); NEUTROPHILS # (AUTO) 9.2 (2.1-6.9); NEUTROPHILS % 88.3 % (38.7-80.0); PLATELET COUNT 174 x10e3/uL (140-360); RED BLOOD COUNT 4.86 x10e6/uL (3.6-5.1); RED CELL DISTRIBUTION WIDTH 12.9 % (11.7-14.4)
[2017-11-15 18:32] LABS: BILIRUBIN,URINE NEGATIVE (NEGATIVE); CLARITY,URINE CLOUDY (CLEAR); COLOR,URINE YELLOW (YELLOW); KETONES,URINE 1+ (NEGATIVE); LEUKOCYTE ESTERASE ,URINE NEGATIVE (NEGATIVE); NITRITE,URINE NEGATIVE (NEGATIVE); PROTEIN,URINE DIPSTICK 3+ (NEGATIVE); URINE UROBILINOGEN 0.2 mg/dL (0.2 - 1)
[2017-11-15 18:34] LABS: AMPHETAMINES SCREEN,URINE NEGATIVE (NEGATIVE); BENZODIAZEPINES SCREEN,URINE NEGATIVE (NEGATIVE); PHENCYCLIDINE SCREEN,URINE NEGATIVE (NEGATIVE)
[2017-11-15 18:39] LABS: AMORPHOUS SEDIMENT,URINE FEW (FEW); BACTERIA,URINE MODERATE /HPF; EPITHELIAL CELLS,URINE FEW /LPF; MUCUS,URINE RARE (RARE)
[2017-11-15 18:51] LABS: ALANINE AMINOTRANSFERASE 101 IU/L (0-55); ALBUMIN 4.8 g/dL (3.5-5.0); ALBUMIN/GLOBULIN RATIO 1.1 (0.8-2.0); ALKALINE PHOSPHATASE 109 IU/L (40-150); AMYLASE 53 U/L (25-125); BLOOD UREA NITROGEN 15 mg/dL (7-26); BUN/CREATININE RATIO 23 (6-25); CALCIUM 10.5 mg/dL (8.4-10.2); CARBON DIOXIDE 23 mmol/L (22-29); CHLORIDE 94 mmol/L (98-107); CREATINE KINASE 169 IU/L (29-168); CREATININE, SERUM 0.64 mg/dL (0.57-1.11); EST GLOMERULAR FILTRATION RATE > 60 ML/MIN (60-); GLUCOSE 124 mg/dL (74-118); LIPASE 9 U/L (8-78); SODIUM 132 mmol/L (136-145)
[2017-11-15] MEDS ORDERED: ALBUTEROL/IPRATROPIUM 3 ML NEB NEB ONE (19:00)
[2017-11-15] MEDS ORDERED: HYDROMORPHONE 1MG/1ML INJ IV ONE (19:15)
[2017-11-15] MEDS ORDERED: ONDANSETRON HCL INJ 2 MG/ML VIAL IV ONE (19:15)
[2017-11-15] MEDS ORDERED: ONDANSETRON HCL INJ 2 MG/ML VIAL IV STA (20:28)
[2017-11-15] MEDS ORDERED: HYDROMORPHONE 1MG/1ML INJ IV STA (20:28)
[2017-11-15] MEDS ORDERED: PANTOPRAZOLE 40 MG 10ML VIAL IV STA (20:28)
[2017-11-15] MEDS: PIPER-TAZ 3.375 GM 50 ML IV SCH (21:40)
--- NOTE | 2017-11-15 21:49 | Diagnostic Imaging Report ---
EXAM: CT ABDOMEN AND PELVIS with IV CONTRAST DATE: 11/15/2017 5:46 PM Time stamp on Exam: 0 hours INDICATION: Chills, difficulty breathing, abdominal and back pain COMPARISON: None TECHNIQUE: The abdomen and pelvis were scanned using a multidetector helical scanner. Coronal and sagittal reformations were obtained. Routine protocol performed. IV Contrast: 100 cc Isovue-370 Oral Contrast: Gastrografin CTDIvol has been reviewed. It is below the limits set by the Radiation Protocol Committee (RPC). FINDINGS: LOWER THORAX: No consolidations LIVER: Indeterminate mass measuring 2.7 cm in the left lobe of the liver with punctate calcification.. Nonspecific subcapsular 1 cm hypodensity with punctate calcification in the superior aspect of the right lobe of the liver. BILIARY: The gallbladder is unremarkable. Mild to moderate intrahepatic biliary dilation. The common bile duct is dilated with the appearance of internal density. SPLEEN: No masses PANCREAS: The pancreatic duct is dilated up to 3 to 4 mm. No evidence of a pancreatic mass. ADRENALS: Mild thickening of the left adrenal gland without discrete nodule. KIDNEYS: Symmetric perfusion. No enhancing masses. No hydronephrosis. GI TRACT: No distention, wall thickening or evidence of obstruction. VESSELS: Advanced atherosclerotic changes of the abdominal aorta without aneurysm. PERITONEUM/RETROPERITONEUM: Nonspecific partially peripherally calcified hypodense mass measuring 2 cm anterior to the right iliac is (series 301, image 38). LYMPH NODES: No lymphadenopathy REPRODUCTIVE ORGANS: Not evaluated secondary to streak artifact from right hip arthroplasty. BLADDER: Not well visualized secondary to streak artifact from right hip arthroplasty. SOFT TISSUES: Unremarkable BONES: No suspicious bone lesions. Right hip arthroplasty. IMPRESSION: Mild to moderate intra and extrahepatic biliary dilation with intraductal density suspicious for cholangiocarcinoma, though sludge is in the differential. Indeterminate 2 cm mass in the left lobe of the liver. Indeterminate 2 cm peripherally calcified mass in the right pelvic retroperitoneum that could be an old omental infarct or metastatic disease. An MRI of the abdomen with and without IV contrast and with MRCP is recommended to better evaluate hepatobiliary findings. Signed by: Dr. Sera Andre M.D. on 11/15/2017 9:45 PM
--- NOTE | 2017-11-15 21:51 | Diagnostic Imaging Report ---
EXAM: CHEST SINGLE (PORTABLE), AP 1 view INDICATION: Abdominal and back pain COMPARISON: None FINDINGS: LINES/TUBES: None LUNGS: No consolidations or edema. Emphysematous changes. PLEURA: No effusions or pneumothorax. HEART AND MEDIASTINUM: Normal size and contour. BONES AND SOFT TISSUES: No acute findings. IMPRESSION: Emphysematous changes without consolidation. Signed by: Dr. Sera Andre M.D. on 11/15/2017 9:47 PM
[2017-11-15 21:57] LABS: INR 0.95; PROTHROMBIN TIME 11.9 seconds (11.9-14.5)
[2017-11-15 21:58] LABS: PARTIAL THROMBOPLASTIN TIME 27.9 seconds (23.8-35.5)
[2017-11-15] MEDS ORDERED: IOPAMIDOL 370 MG/ML 200 ML INFUS..BTL INJ ONE (23:02)
[2017-11-15] MEDS ORDERED: SODIUM CHLORIDE 0.9% 50ML 50 ML ONE (23:02)
[2017-11-15] MEDS: SODIUM CHLORIDE 0.9% 1000ML 1,000 ML IV SCH (23:28)
[2017-11-15] MEDS: METRONIDAZOLE 500MG/NS 100ML 100 ML IV SCH (23:28)
[2017-11-16] VITALS (10 sets, daily range): BP systolic 110–131; BP diastolic 53–66
[2017-11-16] MEDS: HYDROMORPHONE 1MG/1ML INJ IV PRN ×6 (01:45→22:35)
[2017-11-16] MEDS: ONDANSETRON HCL INJ 2 MG/ML VIAL IV PRN ×6 (01:45→22:36)
[2017-11-16] MEDS: PIPER-TAZ 3.375 GM 50 ML IV SCH ×4 (03:10→20:42)
[2017-11-16 05:28] LABS: BASOPHILS % 0.3 % (0.0-1.0); EOSINOPHILS % 0.1 % (0.0-6.0); HEMATOCRIT 41.7 % (34.2-44.1); HEMOGLOBIN 14.5 g/dL (12.0-16.0); LYMPHOCYTES # (AUTO) 0.7 (1.0-3.2); MEAN CORPUSCULAR HGB CONC 34.8 g/dL (31-35); MONOCYTES # (AUTO) 0.7 (0.2-0.8); MONOCYTES % 10.1 % (4.4-11.3); NEUTROPHILS # (AUTO) 5.7 (2.1-6.9); NEUTROPHILS % 79.2 % (38.7-80.0); PLATELET COUNT 149 x10e3/uL (140-360); RED BLOOD COUNT 4.39 x10e6/uL (3.6-5.1)
[2017-11-16] MEDS: METRONIDAZOLE 500MG/NS 100ML 100 ML IV SCH ×4 (05:47→23:54)
[2017-11-16 06:03] LABS: CREATINE KINASE MB 4.8 ng/mL (0-5.0)
[2017-11-16 06:36] LABS: ALANINE AMINOTRANSFERASE 73 IU/L (0-55); ALBUMIN 3.7 g/dL (3.5-5.0); ALBUMIN/GLOBULIN RATIO 1.1 (0.8-2.0); ALKALINE PHOSPHATASE 84 IU/L (40-150); AMYLASE 52 U/L (25-125); ANION GAP 13.9 mmol/L (8-16); BLOOD UREA NITROGEN 18 mg/dL (7-26); BUN/CREATININE RATIO 26 (6-25); CALCIUM 9.3 mg/dL (8.4-10.2); CARBON DIOXIDE 25 mmol/L (22-29); CHLORIDE 100 mmol/L (98-107); EST GLOMERULAR FILTRATION RATE > 60 ML/MIN (60-); GLUCOSE 103 mg/dL (74-118); LIPASE 12 U/L (8-78); POTASSIUM 3.9 mmol/L (3.5-5.1); SODIUM 135 mmol/L (136-145)
[2017-11-16] MEDS: SODIUM CHLORIDE 0.9% 1000ML 1,000 ML IV SCH ×2 (07:09→15:15)
[2017-11-16] MEDS ORDERED: GADOBENATE DIMEGLUMINE 1 ML IV ONE (10:59)
[2017-11-16 14:08] LABS: CREATINE KINASE MB 4.9 ng/mL (0-5.0)
--- NOTE | 2017-11-16 16:00 | Diagnostic Imaging Report ---
PROCEDURE: MRI ABDOMEN / MRCP WITH AND WITHOUT CONTRAST TECHNIQUE: Axial T1 in and out of phase, axial T2, fat-sat, coronal, T2 with and without fat-sat, axial DWI, ADC, MR images of the abdomen were performed before the intravenous administration of 8 cc of gadolinium. Axial T1 GRE dynamic images in precontrast, arterial, venous and delayed phases were obtained, as well as subtraction images. Heavily T2-weighted MRCP images were performed, including thick and thin slab ASSETT, 3 breath-hold FR FSE, and 3-D reconstructions. COMPARISON: [facility], CT, CT ABDOMEN/PELVIS W, 11/15/2017, 21:06. INDICATIONS: RUQ pain FINDINGS: Exam limited by breathing motion artifact. LOWER THORAX: Lung bases are clear. LIVER: Normal hepatic size and contour. No hepatic signal abnormality. * 2.4 x 2.4 x 2.0 cm T1 hyperintense, T2, hypointense lesion in hepatic segment BOBY (series 9, image 12, and series 8, image 18), corresponding to abnormality seen on recent CT. No internal postcontrast enhancement. Questionable thin peripheral enhancement versus surrounding tissue hyperemia. * 0.9 x 0.7 x 0.7 cm T1 and T2 hyperintense lesion in the peripheral aspect of hepatic segment VIII (series 3, image 8, and series 7, image 14), which show signal dropout on out of phase, and fat suppressed images, consistent with a fat containing lesion. No internal enhancement. No other focal hepatic lesions. BILIARY: Moderate left and mild right central intrahepatic biliary ductal dilation. Mild to moderately dilated ducts are also seen in segments II and BOBY (series 4, image 15 and 7). The common bile duct measures approximately 6 mm at the fili hepatis and 4-5 mm at the pancreatic head. Ill-defined, somewhat elongated T2 hypointense filling defects are noted in the midportion of the common bile duct (series 11, images 15, and 14 and series 13, images 12-17) and likely just proximal to the ampulla (series 9, image 116-119). Gallbladder is moderately distended, without wall thickening, stones, or sludge. PANCREAS: No focal mass. Mild prominence of the pancreatic duct at the head, which measures 4 mm. No intraluminal filling defects. SPLEEN: No splenomegaly. ADRENALS: Thickening of the left adrenal gland, without focal lesions. Right adrenal gland is unremarkable. KIDNEYS: No hydronephrosis or mass in the imaged portion of the kidneys. PERITONEUM / RETROPERITONEUM: No upper abdominal free fluid. LYMPH NODES: No upper abdominal lymphadenopathy. VESSELS: Celiac trunk, superior and inferior mesenteric, and bilateral renal arteries are patent. Portal, superior mesenteric, and splenic veins are patent. BONES AND SOFT TISSUES: No abnormal bone marrow signal. Soft tissues are unremarkable.. IMPRESSION: 1. Intraluminal findings in the midportion and likely just proximal to the ampulla in the common bile duct may represent a combination of stones and sludge and less likely an intraluminal mass. Recommend direct visualization with ERCP. 2. Moderate left and mild right central intrahepatic bile duct with mild to moderately dilated ducts in segments II and BOBY. These are likely the result of obstruction secondary to above mentioned findings. 3. 2.4 cm T1 hyperintense lesion in hepatic segment BOBY, which does not show significant internal enhancement. There is questionable peripheral enhancement versus surrounding tissue hyperemia. This may represent a complex/proteinaceous cyst. A biliary cystadenoma is a less likely consideration. 4. No MR evidence of cholelithiasis or cholecystitis. 5. 0.9 cm fat containing lesion in the peripheral aspect of hepatic segment VIII.. This lesion shows a punctate calcification on recent CT dated 11/15/2017. 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 Zhen Cuenca M.D. Dictated by: Zhen Cuenca M.D. on 11/16/2017 at 16:04 Electronically approved by: Zhen Cuenca M.D. on 11/16/2017 at 16:04
[2017-11-16] MEDS: GABAPENTIN 100 MG CAP PO SCH (20:42)
[2017-11-16] MEDS: IPRATROPIUM BROMIDE 0.02% 2.5 ML NEB NEB SCH ×2 (20:45→23:30)
[2017-11-16] MEDS: ALBUTEROL SULF 0.083% NEB SOLN 3 ML NEB NEB SCH ×2 (20:45→23:30)
--- NOTE | 2017-11-16 22:40 | Consultation ---
DATE OF CONSULTATION: November 16, 2017 REFERRING PHYSICIAN: Jose A Gallardo MD. REASON FOR CONSULTATION: 1. Abnormal liver enzymes. 2. Acute right lower quadrant midepigastric pain for 2 days. 3. Possibility of choledocholithiasis. HISTORY OF PRESENTING ILLNESS: A 62-year-old very pleasant white female with past medical history of COPD (not O2 dependent), chronic smoker, chronic back ache, who got admitted with acute onset of intermittent biliary type colic pain in the midepigastric and right upper quadrant area associated with some nausea and vomiting. In the emergency room, she was afebrile, vital signs stable. Blood work revealed abnormal liver enzymes. Subsequently, she has had MRCP done that showed dilated common bile duct with filling defect in the distal common bile duct suggestive of stone versus sludge. The patient is currently being given empiric IV antibiotic. The patient's white cont is normal. She does not have any ascending cholangitis. REVIEW OF SYSTEMS: Twelve-point systems reviewed, symptomatology is limited to GI system. PAST MEDICAL HISTORY: COPD. PAST SURGICAL HISTORY: Right hip ORIF 2 months ago. FAMILY HISTORY: Negative for any GI or [employer] malignancies. SOCIAL HISTORY: Chronic smoker, seldom drinks alcohol. Never used any illicit drugs. ALLERGIES: NO KNOWN DRUG ALLERGIES. HOME MEDICATIONS: Albuterol inhaler, gabapentin, hydrocodone/acetaminophen, ibuprofen, megestrol acetate, nicotine dermal patch, prednisone 20 mg as needed for shortness of breath. PHYSICAL EXAMINATION: VITAL SIGNS: Temperature 97.8, pulse 79, respirations 20, blood pressure 118/57, oxygen saturation 98% on 2 L nasal cannula. GENERAL: Not in any acute distress, thin body habitus. HEENT: Moist mucous membrane. Anicteric sclerae. CVS: S1, S2 regular. LUNGS: Bilaterally grossly clear. ABDOMEN: Soft. Thin abdomen. Midepigastric and right upper quadrant tenderness without any palpable mass or hernia. Positive bowel sounds. No hepatosplenomegaly. No ascites. EXTREMITIES: Warm. No leg edema. LABS: Electrolytes normal. BUN 18, creatinine 0.7. AST has gone down to 107 from 186, ALT 73 from 101, total bilirubin has gone down to 1.8 from 2.4, alkaline phosphatase is 84 from 109. WBC is 7.23, down from 10.36, hemoglobin 14.5, hematocrit 41.7, MCV 95, platelet count 147,000. CT of the abdomen and pelvis with IV contrast showed, 1. [id number] intra and extrahepatic biliary dilatation with intraductal density suspicious for cholangiocarcinoma. No sludges in the differential. 2. Indeterminate 2-cm mass in the left lobe of the liver. 3. Indeterminate 2-cm peripherally calcified mass in the right pelvic retroperitoneum that could be an old omental infarct or metastatic disease. 4. An MRI of the abdomen with and without IV contrast with MRCP is recommended to better evaluate hepatobiliary findings. MRCP and MRI showed, 1. Intraluminal findings in the mid portion and likely just proximal to the ampulla in the common bile duct, may represent a combination of stone and sludge, less likely any intraluminal mass. Recommend direct visualization with ERCP. 2. Moderate left and mid right central intrahepatic bile duct with [id number] dilated ducts in the segments II and IV. These are likely to result from the extrahepatic biliary ductal obstruction. 3. A 2.4-cm T1 hyperintense lesion in hepatic segment IV, which does not show significant internal enhancement. There is a questionable peripheral enhancement versus surrounding tissue hyperemia. This may represent a complex/proteinaceous cyst. A biliary cyst adenoma is less likely in consideration. 4. No MR evidence of cholelithiasis or cholecystitis. 5. A 0.9-cm fat containing lesion in the peripheral aspect of the hepatic segment VIII. This lesion shows a punctate calcification on the recent CT dated November 15, 2017. 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 IMPRESSION: 1. Biliary colic likely secondary to obstructing common bile duct stone versus some sludge. Liver enzymes are trending down. This represents stone has passed. 2. There are no signs of ascending cholangitis. Patient is empirically getting intravenous antibiotics. PLAN: Continue present medical management, IV fluids, clear liquid diet. Repeat liver enzymes tomorrow. If liver enzymes have normalized, then patient likely has passed the stool. If liver enzymes remain elevated, in that situation patient will need ERCP. Therefore, I will keep her n.p.o. after midnight. I thank Dr. Gallardo for allowing me to participate in the care of this patient. Job#: [id number] [facility]
[2017-11-17] MEDS: SODIUM CHLORIDE 0.9% 1000ML 1,000 ML IV SCH ×3 (01:08→19:04)
[2017-11-17] MEDS: PIPER-TAZ 3.375 GM 50 ML IV SCH ×4 (03:00→20:50)
[2017-11-17] MEDS: IPRATROPIUM BROMIDE 0.02% 2.5 ML NEB NEB SCH ×6 (03:10→23:15)
[2017-11-17] MEDS: ALBUTEROL SULF 0.083% NEB SOLN 3 ML NEB NEB SCH ×6 (03:10→23:15)
[2017-11-17] MEDS: HYDROMORPHONE 1MG/1ML INJ IV PRN ×6 (03:15→23:45)
[2017-11-17] MEDS: ONDANSETRON HCL INJ 2 MG/ML VIAL IV PRN ×5 (03:16→19:36)
[2017-11-17 05:19] VITALS: BP 114/56
[2017-11-17] MEDS: METRONIDAZOLE 500MG/NS 100ML 100 ML IV SCH ×3 (05:41→17:01)
[2017-11-17 05:47] LABS: ALBUMIN 3.1 g/dL (3.5-5.0); BILIRUBIN,DIRECT 0.6 mg/dL (0.0-0.5)
[2017-11-17 08:11] VITALS: BP 115/76
--- NOTE | 2017-11-17 08:51 | History and Physical ---
A patient of Dr. Orr, Dr. Geo Cifuentes, Dr. Lizarraga. A charming but unfortunate 62-year-old woman well known to the pulmonary service, admitted with abdominal pain. She had become ill at work, nausea and vomiting, chills, sweats. 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 She has had hip surgery in approximately 3 months. She has moderate dyspnea on exertion, is able to work. She has a history of hepatitis C. No heart problems, no strokes. Her weight has been stable and the weights in the hospital have been stable. She has a history of an old rib fracture, surgical repair. Degenerative disease involving primarily her back. History of knee surgery with left meniscectomy. She is smoking a pack a day. 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 Takes Neurontin for pain. Recently had a right femoral neck fracture repaired by Dr. Gant. PHYSICAL EXAMINATION GENERAL: A frail white female in no acute distress. Appears stated age, demanding food. VITAL SIGNS: Temperature 99, pulse 84, respiration 25, blood pressure 131/80. HEAD: Normocephalic, atraumatic. NECK: Trachea midline. LUNGS: Clear. Diminished breath sounds. HEART: Regular rhythm. ABDOMEN: There is tenderness in the right upper quadrant. EXTREMITIES: Nonedematous. PLAN: To continue bronchodilators. Surgical opinion. Continue Neurontin and Vicodin. Nicotine patch. She has been on Megace and a new oral also in the past according to the records. Will hold these medications. Request surgical and GI opinion. An MRI has been performed but the results are pending. A CT of the abdomen revealed a partially calcified mass anterior to the right iliac, a nonspecific nodule in the liver and biliary dilatation suspicious for cholangiocarcinoma. Thank you for this kind referral. Job#: [id number] EV
[2017-11-17] MEDS ORDERED: NICOTINE 14 MG/EA PATCH TOP SCH (09:00)
[2017-11-17] MEDS: NICOTINE 7 MG PATCH TOP SCH (09:14)
[2017-11-17 12:18] VITALS: BP 128/70
[2017-11-17] MEDS ORDERED: IOPAMIDOL 610MG/1ML 300 MG/ML VIAL IV ONE (12:45)
[2017-11-17] MEDS ORDERED: GLUCAGON FOR INJ 1 MG VIAL ONE (14:14)
--- NOTE | 2017-11-17 14:14 | Consultation ---
DATE OF CONSULTATION: GI CONSULT NOTE DICTATION DISCONTINUED (00:08) Job#: [id number] CQ
[2017-11-17] MEDS ORDERED: PROPOFOL IV EMULSION 10 MG/ML 20 ML VIAL ONE (14:56)
--- NOTE | 2017-11-17 15:17 | Diagnostic Imaging Report ---
PROCEDURE:ERCP TO BE READ TECHNIQUE:Multiple spot images were obtained. INDICATION:ERCP COMPARISON:CT 11/15/2017, MRI 11/16/2017 FINDINGS: Five ERCP images are submitted for interpretation. A radiologist was not present for the procedure. The first image shows access of the common bile duct and left hepatic duct. Subsequent images show balloon sweeps of the common bile duct with clearing of sludge. The final images shows opacification of the common bile duct without filling defects. Fluoro time: 01:02 min CONCLUSION: ERCP images with balloon sweep of the common bile duct without filling defects at the conclusion of the procedure. Dictated by: Uvaldo Cosby M.D. on 11/17/2017 at 15:21 Electronically approved by: Uvaldo Cosby M.D. on 11/17/2017 at 15:21
[2017-11-17] MEDS ORDERED: KETAMINE HCL INJ 50 MG/ML 10 ML VIAL ONE (17:58)
[2017-11-17] MEDS ORDERED: MIDAZOLAM HCL 2 MG/2 ML VIAL ONE (17:58)
[2017-11-17 18:06] VITALS: BP 171/79
[2017-11-17 20:00] VITALS: BP 164/78
[2017-11-17] MEDS: GABAPENTIN 100 MG CAP PO SCH (20:50)
[2017-11-18] VITALS (8 sets, daily range): BP systolic 143–177; BP diastolic 67–84
[2017-11-18] MEDS: PROMETHAZINE 12.5MG/ NACL 0.9% 12.5 MG/50 ML BAG IV PRN ×2 (00:05→03:47)
[2017-11-18] MEDS: SODIUM CHLORIDE 0.9% 1000ML 1,000 ML IV SCH ×4 (00:05→20:48)
[2017-11-18] MEDS: PIPER-TAZ 3.375 GM 50 ML IV SCH ×4 (03:00→20:48)
[2017-11-18] MEDS: ALBUTEROL SULF 0.083% NEB SOLN 3 ML NEB NEB SCH ×6 (03:17→23:00)
[2017-11-18] MEDS: IPRATROPIUM BROMIDE 0.02% 2.5 ML NEB NEB SCH ×6 (03:17→23:00)
[2017-11-18] MEDS: HYDROMORPHONE 1MG/1ML INJ IV PRN ×6 (03:47→20:40)
[2017-11-18] MEDS: METRONIDAZOLE 500MG/NS 100ML 100 ML IV SCH ×4 (06:00→17:47)
[2017-11-18] MEDS: NICOTINE 7 MG PATCH TOP SCH (08:36)
[2017-11-18] MEDS: ONDANSETRON HCL INJ 2 MG/ML VIAL IV PRN ×3 (09:25→19:09)
[2017-11-18] MEDS: GABAPENTIN 100 MG CAP PO SCH (20:48)
[2017-11-19] VITALS (8 sets, daily range): BP systolic 119–191; BP diastolic 66–92
[2017-11-19] MEDS: PROMETHAZINE 12.5MG/ NACL 0.9% 12.5 MG/50 ML BAG IV PRN (00:45)
[2017-11-19] MEDS: HYDROMORPHONE 1MG/1ML INJ IV PRN ×6 (00:45→22:15)
[2017-11-19] MEDS: ALBUTEROL SULF 0.083% NEB SOLN 3 ML NEB NEB SCH ×6 (03:15→23:35)
[2017-11-19] MEDS: IPRATROPIUM BROMIDE 0.02% 2.5 ML NEB NEB SCH ×6 (03:15→23:35)
[2017-11-19] MEDS: PIPER-TAZ 3.375 GM 50 ML IV SCH ×4 (04:00→20:38)
[2017-11-19] MEDS: SODIUM CHLORIDE 0.9% 1000ML 1,000 ML IV SCH (04:24)
[2017-11-19] MEDS: ONDANSETRON HCL INJ 2 MG/ML VIAL IV PRN ×4 (04:45→18:15)
[2017-11-19] MEDS: METRONIDAZOLE 500MG/NS 100ML 100 ML IV SCH ×4 (05:00→17:12)
[2017-11-19] MEDS: NICOTINE 7 MG PATCH TOP SCH (09:35)
[2017-11-19] MEDS: GABAPENTIN 100 MG CAP PO SCH (20:38)
[2017-11-20] VITALS (8 sets, daily range): BP systolic 143–170; BP diastolic 69–91
[2017-11-20] MEDS: METRONIDAZOLE 500MG/NS 100ML 100 ML IV SCH ×4 (00:19→18:01)
[2017-11-20] MEDS: HYDROMORPHONE 1MG/1ML INJ IV PRN ×3 (02:25→10:52)
[2017-11-20] MEDS: PIPER-TAZ 3.375 GM 50 ML IV SCH ×4 (02:27→21:37)
[2017-11-20] MEDS: ALBUTEROL SULF 0.083% NEB SOLN 3 ML NEB NEB SCH ×2 (03:15→07:04)
[2017-11-20] MEDS: IPRATROPIUM BROMIDE 0.02% 2.5 ML NEB NEB SCH ×6 (03:15→23:20)
[2017-11-20 06:03] LABS: BASOPHILS % 0.3 % (0.0-1.0); EOSINOPHILS # (AUTO) 0.1 (0.0-0.4); EOSINOPHILS % 2.6 % (0.0-6.0); HEMATOCRIT 33.6 % (34.2-44.1); HEMOGLOBIN 11.3 g/dL (12.0-16.0); LYMPHOCYTES # (AUTO) 0.9 (1.0-3.2); LYMPHOCYTES % 24.8 % (18.0-39.1); MEAN CORPUSCULAR HEMOGLOBIN 33.2 pg (28-32); MEAN CORPUSCULAR HGB CONC 33.6 g/dL (31-35); MEAN CORPUSCULAR VOLUME 98.8 fL (81-99); MONOCYTES # (AUTO) 0.4 (0.2-0.8); NEUTROPHILS # (AUTO) 2.1 (2.1-6.9); PLATELET COUNT 124 x10e3/uL (140-360); RED CELL DISTRIBUTION WIDTH 12.9 % (11.7-14.4)
[2017-11-20 06:21] LABS: ALANINE AMINOTRANSFERASE 38 IU/L (0-55); ALBUMIN 2.8 g/dL (3.5-5.0); ALKALINE PHOSPHATASE 95 IU/L (40-150); BILIRUBIN,DIRECT 0.3 mg/dL (0.0-0.5); BLOOD UREA NITROGEN < 5 mg/dL (7-26); BUN/CREATININE RATIO 8 (6-25); CALCIUM 8.5 mg/dL (8.4-10.2); CARBON DIOXIDE 32 mmol/L (22-29); CHLORIDE 101 mmol/L (98-107); EST GLOMERULAR FILTRATION RATE > 60 ML/MIN (60-); GLUCOSE 157 mg/dL (74-118); SODIUM 140 mmol/L (136-145)
[2017-11-20] MEDS: NICOTINE 7 MG PATCH TOP SCH (08:05)
[2017-11-20] MEDS ORDERED: POTASSIUM CHLORIDE 20 MEQ TAB CR PO NR (08:15)
[2017-11-20] MEDS ORDERED: MAGNESIUM SULFATE 2GM/50ML 50 ML IV PRN (09:15)
[2017-11-20] MEDS ORDERED: DILTIAZEM HCL 5 MG/ML 5 ML VIAL IV STA (10:10)
[2017-11-20] MEDS: ONDANSETRON HCL INJ 2 MG/ML VIAL IV PRN (10:52)
[2017-11-20 11:22] LABS: FREE THYROXINE INDEX 1.7717 (1.4-3.8); THYROID STIMULATING HORMONE 3.192 uIU/mL (0.350-4.940)
[2017-11-20] MEDS: DILTIAZEM HCL 180 MG CAP CD PO SCH (11:49)
--- NOTE | 2017-11-20 13:13 | Consultation ---
DATE OF CONSULTATION: CARDIOLOGY CONSULTATION ATTENDING PHYSICIAN: Dr. Orr CLINICAL HISTORY: This is a 62-year-old [place] woman referred by Dr. Orr for evaluation of supraventricular tachycardia with ventricular rate of 164 beats per minute in the setting of albuterol usage. This patient has history of COPD. She uses inhaler at home. She has never had history of supraventricular tachycardia. However, when she does as it happened this time, she denies any chest pain, shortness of breath or even palpitations. She was admitted because of liver mass as well as possible choledocholithiasis. MRCP was abnormal, but ERCP was negative. While being treated, she developed SVT at the above rate. Cardiology consultation was requested. PAST MEDICAL HISTORY: Remarkable for hypertension. There is no history of diabetes or hyperlipidemia. MEDICATIONS AT HOME: Include albuterol inhalers, prednisone, ibuprofen, Megace, Anoro Ellipta, gabapentin, hydrocodone, nicotine. PERSONAL AND SOCIAL HISTORY AND FAMILY HISTORY: Please refer to existing records. REVIEW OF SYSTEMS: Noncontributory. PHYSICAL EXAMINATION GENERAL: She is alert and coherent. VITAL SIGNS: Stable. CARDIAC: Jugular veins are not distended. S1 and S2 are rapid and regular. LUNGS: Clear. ABDOMEN: Soft. Bowel sounds are present. EXTREMITIES: No cyanosis, clubbing or edema. IMPRESSION 1. Sustained supraventricular tachycardia with rate of 164 beats per minute. 2. Status post endoscopic retrograde cholangiopancreatography and magnetic resonance cholangiopancreatography for choledocholithiasis. 3. A 2-cm liver mass. 4. Chronic obstructive pulmonary disease using albuterol. RECOMMENDATION: Avoid albuterol. Consider Cardizem, particularly if she has hypertension. At this time, I do not believe she needs anticoagulation. Job#: [id number] cc:EUNICE ORR M.D.
[2017-11-20] MEDS: METHYLPREDNISOLONE SOD SUCC 40 MG/ML VIAL IV SCH ×2 (13:53→21:37)
[2017-11-20] MEDS: HYDROCODONE/APAP 10MG-325MG TAB PO PRN ×3 (14:49→23:09)
[2017-11-20] MEDS ORDERED: MAGNESIUM SULFATE 2GM/50ML 50 ML IV ONE (18:56)
[2017-11-20] MEDS: GABAPENTIN 100 MG CAP PO SCH (20:58)
[2017-11-20] MEDS ORDERED: ACETAMINOPHEN 325 MG TAB PO PRN (22:15)
--- NOTE | 2017-11-20 23:02 | Progress Note ---
DATE: November 20, 2017 SUBJECTIVE: Patient reports no abdominal pain. She is likely going to be discharged home tomorrow. REVIEW OF SYSTEMS: GENERAL: No fever or chills. CVS: No chest pain, palpitation. RESPIRATORY: No cough or expectoration. MEDICATIONS: Reviewed MAR. She is still getting intravenous Zosyn as well as metronidazole. PHYSICAL EXAMINATION: VITAL SIGNS: Temperature 98.5, pulse 87, respiration 20, blood pressure 170/81 to 156/71, oxygen saturation 93% on 2 liters of nasal cannula. GENERAL: Not in any acute distress. Thin body habitus, low muscle mass. HEENT: Oral mucosa is moist. Anicteric sclerae. CVS: S1, S2 regular. No gallop, murmur, or rub. LUNGS: Bilaterally grossly clear. ABDOMEN: Soft, nondistended, nontender. No palpable mass or hernia. Positive bowel sounds. EXTREMITIES: Warm. No leg edema. LABS: WBC 3.5; hemoglobin 11.3, down from 14.5; hematocrit 33.6; platelet count 124,000. Sodium 140, potassium 3.0, chloride 101, bicarb 32, BUN 5, creatinine 0.60. Liver enzymes showed AST 37, ALT 38, alkaline phosphatase 95, total bilirubin 0.7. PT 11.9, INR 0.95. IMPRESSION: 1. Abdominal pain secondary to biliary colic from choledocholithiasis, status post endoscopic retrograde cholangiopancreatography, sphincterotomy, and removal of some sludge. Liver enzymes trending down, near normalization. 2. Indeterminate liver mass. 3. Patient has a history of hepatitis C in the past for which she was treated with interferon. Patient claims that the hepatitis C was eradicated in late , ever since then she is maintaining sustained virologic response. However, patient is not sure if hepatitis C RNA level was ever checked in the recent times. PLAN: From GI standpoint, patient can be discharged home. I have given her my card. I have instructed the patient to call my office and setup an appointment to see me within 1 week. I have to refer her to Hepatology Division of [facility] for further evaluation and recommendations regarding the liver mass. From the MRI, it seems that mass is of benign nature. However, given the history of hepatitis C, she is at the risk of having liver cirrhosis. I suspect patient may have a liver cirrhosis given low platelet counts secondary to underlying portal hypertension. If patient has liver cirrhosis, obviously she is at the risk of developing hepatocellular carcinoma. Will also check the tumor marker alpha-fetoprotein as an outpatient. Again, I have reiterated to the patient that please call my office and follow up with me in 1 week. Patient promised to call and setup an appointment to see me. Job#: [id number] DR BARR
[2017-11-21] VITALS: BP 147/71
[2017-11-21] MEDS: METRONIDAZOLE 500MG/NS 100ML 100 ML IV SCH ×2 (00:02→06:19)
[2017-11-21] MEDS: PIPER-TAZ 3.375 GM 50 ML IV SCH ×2 (02:24→08:15)
[2017-11-21] MEDS: HYDROCODONE/APAP 10MG-325MG TAB PO PRN ×2 (03:12→07:17)
[2017-11-21] MEDS: IPRATROPIUM BROMIDE 0.02% 2.5 ML NEB NEB SCH ×4 (03:35→15:00)
[2017-11-21 04:00] VITALS: BP 146/69
[2017-11-21] MEDS: METHYLPREDNISOLONE SOD SUCC 40 MG/ML VIAL IV SCH ×2 (06:18→14:01)
[2017-11-21 08:00] VITALS: BP 147/70
[2017-11-21] MEDS: DILTIAZEM HCL 180 MG CAP CD PO SCH (08:15)
[2017-11-21] MEDS: NICOTINE 7 MG PATCH TOP SCH (08:15)
[2017-11-21 08:30] VITALS: BP 147/70
[2017-11-21 10:08] LABS: ANION GAP 13.7 mmol/L (8-16); BLOOD UREA NITROGEN 11 mg/dL (7-26); BUN/CREATININE RATIO 17 (6-25); CALCIUM 9.6 mg/dL (8.4-10.2); CARBON DIOXIDE 30 mmol/L (22-29); CHLORIDE 101 mmol/L (98-107); CREATININE, SERUM 0.66 mg/dL (0.57-1.11); EST GLOMERULAR FILTRATION RATE > 60 ML/MIN (60-); GLUCOSE 215 mg/dL (74-118); SODIUM 140 mmol/L (136-145)
[2017-11-21 10:12] LABS: POTASSIUM 4.7 mmol/L (3.5-5.1)
[2017-11-21] MEDS ORDERED: METRONIDAZOLE 500 MG TAB PO SCH (12:00)
[2017-11-21 12:45] VITALS: BP 141/66
[2017-11-21] MEDS ORDERED: ATROVENT HFA12.9 GM (14:40)
[2017-11-21] MEDS ORDERED: SYMBICORT 16010.2 GM (14:42)
[2017-11-21] MEDS ORDERED: SYMBICORT 16010.2 GM INH (14:46)
[2017-11-21] MEDS ORDERED: CARDIZEM CD180 MG PO (14:49)
[2017-11-21] MEDS ORDERED: PREDNISONE20 MG PO (14:49)
--- NOTE | 2017-11-21 16:40 | Discharge Summary ---
FINAL DIAGNOSES 1. Choledocholithiasis status post endoscopic retrograde cholangiopancreatography. 2. Likely chronic obstructive pulmonary disease. 3. Smoker. 4. Reactive airways versus chronic obstructive pulmonary disease exacerbation. 5. History of chronic pain. 6. Atrial flutter, resolved after 1 dose of diltiazem. 7. Hypertension. ADMISSION HISTORY AND HOSPITAL COURSE: Ms. Billy is a 62-year-old female. She was admitted on November 15, 2017, with complaints of abdominal pain. Patient underwent CT abdomen and pelvis which showed possibility of mass and blockage of the duct. MRCP was done. This was followed by ERCP. Dr. Lizarraga performed the ERCP, reported that patient had stones in the bile duct which were cleansed. Liver function test has improved to normal. She is doing well. Dr. Cifuentes was consulted for possible cholecystectomy. Case was discussed with him, and he will follow the patient as an outpatient and repeat studies will be done, and after that the decision will be made to do cholecystectomy or not. This was discussed with patient as well. She will be discharged home on Cardizem, Atrovent nebulizer solution, Symbicort, and she will continue her home medications. She will follow up with her primary care physician in 3 to 4 weeks and will follow up with me for COPD in 2 to 3 weeks. EUNICE VELASCO MD Job#: [id number] EV
== END 2017-11-21 15:29 | disposition home or self-care (01) | DRG 444 ==
LOC: ER 17:34 → ERHOLD 23:40 → MED/SURG 11-16 00:40
PROVIDERS: ADMIT Internal Medicine; ATTEND Internal Medicine
PROC: 0F798ZZ Dilation of Common Bile Duct, Via Natural or Artificial Opening Endoscopic (ICD-10-PCS; principal; 2017-11-15)
PROC: 0FC98ZZ Extirpation of Matter from Common Bile Duct, Via Natural or Artificial Opening Endoscopic (ICD-10-PCS; 2017-11-15)
PROC: BF101ZZ Fluoroscopy of Bile Ducts using Low Osmolar Contrast (ICD-10-PCS; 2017-11-15)
DX: K80.51 Calculus of bile duct without cholangitis or cholecystitis with obstruction (principal); E43 Unspecified severe protein-calorie malnutrition; I47.1 Supraventricular tachycardia; K76.6 Portal hypertension; J44.1 Chronic obstructive pulmonary disease with (acute) exacerbation; I48.92 Unspecified atrial flutter; Z68.1 Body mass index [BMI] 19.9 or less, adult; R16.0 Hepatomegaly, not elsewhere classified; J44.9 Chronic obstructive pulmonary disease, unspecified; R19.00 Intra-abdominal and pelvic swelling, mass and lump, unspecified site; K74.60 Unspecified cirrhosis of liver; G89.29 Other chronic pain
CPT/HCPCS: 36415; 43260; 71045; 74177; 74183; 74328; 80048; 80053; 80076; 80307; 81001; 82150; 82378; 82550; 82553; 83605; 83690; 83735; 83880; 84436; 84439; 84443; 84479; 84481; 84484; 85025; 85610; 85730; 86304; 87040; 93005; 94640; 99284; J1170; J1610; J2250; J2270; J2405; J2543; J2550; J2920; J7030; Q9967

== ENCOUNTER 2017-12-06 09:51 | Inpatient (IN) | payer OTHER ==
[~2017-12-06] VITALS: Ht 160 cm; Wt 39.0 kg
[~2017-12-06 09:51] MED LIST changes: +ATROVENT HFA12.9 GM; +CARDIZEM CD180 MG PO; +SYMBICORT 16010.2 GM; +SYMBICORT 16010.2 GM INH
[2017-12-06] MEDS ORDERED: FAMOTIDINE 20 MG/2 ML VIAL IV STA (09:59)
[2017-12-06] MEDS ORDERED: PIPER-TAZ 3.375 GM 50 ML IV ONE (10:00)
[2017-12-06] MEDS ORDERED: FENTANYL CITRATE/PF 100MCG/2 ML INJ IV ONE ×3 (10:00→12:30)
[2017-12-06] MEDS ORDERED: SODIUM CHLORIDE 0.9% 1000ML 1,000 ML IV ONE ×2 (10:00→13:45)
[2017-12-06] MEDS ORDERED: ONDANSETRON HCL INJ 2 MG/ML VIAL IV STA (10:03)
[2017-12-06 10:17] LABS: BASOPHILS % 0.1 % (0.0-1.0); EOSINOPHILS % 0.4 % (0.0-6.0); HEMATOCRIT 42.9 % (34.2-44.1); HEMOGLOBIN 14.7 g/dL (12.0-16.0); LYMPHOCYTES # (AUTO) 0.5 (1.0-3.2); LYMPHOCYTES % 4.4 % (18.0-39.1); MEAN CORPUSCULAR HEMOGLOBIN 34.4 pg (28-32); MEAN CORPUSCULAR HGB CONC 34.3 g/dL (31-35); MEAN CORPUSCULAR VOLUME 100.5 fL (81-99); MONOCYTES # (AUTO) 0.5 (0.2-0.8); MONOCYTES % 4.3 % (4.4-11.3); NEUTROPHILS # (AUTO) 10.2 (2.1-6.9); NEUTROPHILS % 90.4 % (38.7-80.0); PLATELET COUNT 163 x10e3/uL (140-360); RED BLOOD COUNT 4.27 x10e6/uL (3.6-5.1); RED CELL DISTRIBUTION WIDTH 13.5 % (11.7-14.4)
[2017-12-06] MEDS ORDERED: ONDANSETRON HCL INJ 2 MG/ML VIAL IV ONE (10:30)
[2017-12-06] MEDS ORDERED: ENALAPRILAT IV INJ 1.25 MG/ML VIAL IV ONE (10:30)
[2017-12-06] MEDS ORDERED: ACETAMINOPHEN 1000 MG/100 ML IV ONE (10:30)
[2017-12-06] MEDS ORDERED: HYDRALAZINE HCL 20 MG/ML VIAL IV STA (10:35)
[2017-12-06 10:36] LABS: ALANINE AMINOTRANSFERASE 30 IU/L (0-55); ALBUMIN 4.1 g/dL (3.5-5.0); ALKALINE PHOSPHATASE 125 IU/L (40-150); ANION GAP 15.4 mmol/L (8-16); BLOOD UREA NITROGEN 13 mg/dL (7-26); BUN/CREATININE RATIO 19 (6-25); CALCIUM 9.9 mg/dL (8.4-10.2); CARBON DIOXIDE 25 mmol/L (22-29); CHLORIDE 101 mmol/L (98-107); EST GLOMERULAR FILTRATION RATE > 60 ML/MIN (60-); GLUCOSE 118 mg/dL (74-118); POTASSIUM 4.4 mmol/L (3.5-5.1); SODIUM 137 mmol/L (136-145)
[2017-12-06 11:14] LABS: LYMPHOCYTES % (MANUAL) 4 % (19-48); MONOCYTES % (MANUAL) 3 % (3.4-9.0); NEUTROPHILS % (MANUAL) 91 % (40-74)
[2017-12-06 11:15] LABS: PLATELET ESTIMATE ADEQUATE; PLATELET MORPHOLOGY COMMENT NORMAL; RBC MORPHOLOGY COMMENT NORMAL
[2017-12-06 12:23] LABS: BILIRUBIN,URINE NEGATIVE (NEGATIVE); CLARITY,URINE CLEAR (CLEAR); COLOR,URINE YELLOW (YELLOW); KETONES,URINE NEGATIVE (NEGATIVE); LEUKOCYTE ESTERASE ,URINE NEGATIVE (NEGATIVE); NITRITE,URINE NEGATIVE (NEGATIVE); PROTEIN,URINE DIPSTICK NEGATIVE (NEGATIVE); URINE UROBILINOGEN 0.2 mg/dL (0.2 - 1)
[2017-12-06] MEDS ORDERED: HYDRALAZINE HCL 20 MG/ML VIAL IV ONE (12:30)
[2017-12-06] MEDS ORDERED: METOCLOPRAMIDE HCL 10 MG/2ML VIAL IV ONE (12:30)
[2017-12-06] MEDS ORDERED: DICYCLOMINE HCL 20 MG/2 ML VIAL IM ONE (12:30)
[2017-12-06 12:44] LABS: EPITHELIAL CELLS,URINE FEW /LPF
[2017-12-06 12:45] LABS: WBC,URINE (MAN) 0-5 /HPF (0-5)
--- NOTE | 2017-12-06 13:02 | Diagnostic Imaging Report ---
EXAM: CT Abdomen and Pelvis WITH contrast INDICATION: Acute abdominal pain. Recent ERCP. COMPARISON: CT abdomen pelvis dated 11/15/2017. MRCP dated 11/16/17. TECHNIQUE: Abdomen and pelvis were scanned utilizing a multidetector helical scanner from the lung base to the pubic symphysis after administration of IV contrast. Coronal and sagittal reformations were obtained. Routine protocol was performed. Scan was performed when during portal venous phase. IV CONTRAST: 100 cc Isovue 370 ORAL CONTRAST: Water RADIATION DOSE: Total DLP: 265.78 mGy*cm Estimated effective dose: (DLP x 0.015 x size factor) mSv COMPLICATIONS: None FINDINGS: LINES and TUBES: None. LOWER THORAX: Unremarkable HEPATOBILIARY: 2.6 cm oval low-attenuation lesion in the medial segment of the left hepatic lobe adjacent to the falciform ligament fissure on image 20 series 2 is unchanged. There has been also no change in a 1.0 cm subcapsular heterogeneous lesion with septation in the hepatic dome laterally on image 13 series 2. No new hepatic lesions. There is mild intrahepatic biliary dilatation in the left hepatic lobe. The common bile duct is normal in caliber, decreased since prior examination. Previously present debris within the common bile duct has decreased since the prior examination. GALLBLADDER: No radio-opaque stones or sludge. No wall thickening. Minimal pericholecystic fluid about the fundus. SPLEEN: No splenomegaly. PANCREAS: No focal masses or ductal dilatation. ADRENALS: No adrenal nodules KIDNEYS/URETERS: Kidneys enhance symmetrically. No hydronephrosis. . Stable 1.9 cm partially calcified lesion abutting the lateral lower pole of the right kidney No stones. GI TRACT: No abnormal distention, wall thickening, or evidence of bowel obstruction. Appendix is normal. PELVIC ORGANS/BLADDER: Right total hip arthroplasty results involution of the pelvis, however, no gross abnormality. In artifact somewhat limits LYMPH NODES: No lymphadenopathy. VESSELS: There is moderate to severe atherosclerotic disease in the aorta and major arterial branches. Collateral vessels in the region of the gastrohepatic ligament. PERITONEUM / RETROPERITONEUM: No free air or fluid. BONES: Degenerative disc disease and spondylosis with posterior disc osteophyte complex at L5-S1. SOFT TISSUES: Unremarkable. IMPRESSION: 1. No acute abdominal pelvic abnormality. No evidence of pancreatitis in this patient status post ERCP. 2. Redemonstration of intrahepatic biliary dilatation in the left lobe. Refer to recent MRCP and ERCP for further characterization. Signed by: Dr. Ally Mayorga M.D. on 12/06/2017 12:58 PM
[2017-12-06] MEDS ORDERED: METOPROLOL TARTRATE INJ 1 MG/ML VIAL IV ONE (13:45)
[2017-12-06] MEDS ORDERED: SODIUM CHLORIDE FLUSH 10 ML SYR INJ PRN (14:00)
[2017-12-06] MEDS ORDERED: HYOSCYAMINE 0.125 MG TAB PO PRN (14:00)
[2017-12-06] MEDS: ONDANSETRON HCL INJ 2 MG/ML VIAL IV PRN ×2 (15:41→21:17)
[2017-12-06] MEDS: MORPHINE SULFATE 2 MG/ML SYR IV PRN ×2 (15:42→21:17)
[2017-12-06] MEDS ORDERED: CLONIDINE HCL 0.1 MG/24 HR 1 EA PATCH TOP SCH (15:45)
[2017-12-06 16:20] VITALS: BP 124/61
[2017-12-06 16:51] LABS: AMYLASE 67 U/L (25-125); LIPASE 11 U/L (8-78)
[2017-12-06] MEDS ORDERED: IOPAMIDOL 370 MG/ML 200 ML INFUS..BTL INJ ONE (16:56)
[2017-12-06] MEDS ORDERED: SODIUM CHLORIDE 0.9% 50ML 50 ML ONE (16:56)
[2017-12-06] MEDS ORDERED: FAMOTIDINE 20 MG/2 ML VIAL IV SCH (17:00)
[2017-12-06 17:15] VITALS: BP 124/61
[2017-12-06] MEDS: NICOTINE 21 MG/EA PATCH TOP SCH (17:30)
[2017-12-06] MEDS: PANTOPRAZOLE 40 MG 10ML VIAL IV SCH (17:30)
--- NOTE | 2017-12-06 17:46 | Consultation ---
DATE OF CONSULTATION: December 06, 2017 GASTROINTESTINAL CONSULTATION REFERRING PHYSICIAN: Dr. Praveen Bill. REASON FOR CONSULTATION: Acute onset of right upper quadrant and midepigastric pain times 1 day. HISTORY OF PRESENT ILLNESS: A 62-year-old very pleasant female who is very well known to me from her last admission earlier this month. She was admitted in 1st week of this month with acute onset of right upper quadrant epigastric pain with abnormal liver enzymes. The CT scan as well as the MRCP were suggestive of possible stone in the common bile duct. Therefore, she underwent ERCP, a sphincterotomy, balloon sweep with complete ductal clearance. No stone was retrieved or removed during the last ERCP. Patient's liver enzymes normalized. It appeared that patient probably had passed the stone spontaneously. She was successfully discharged home. She was supposed to follow up with me in my office in 2 weeks. Unfortunately, patient developed severe right upper quadrant and midepigastric pain last night that was radiating into the right upper back. This was 8/10 in intensity. Intermittent in nature. No relation with meals. Has had some associated nausea without vomiting. Then the pain became recurrent. Therefore, she decided to seek medical assistance. She ended up in emergency room. Denies any fever, chills. Blood work revealed a normal peripheral cell count. However, liver enzymes showed a mildly elevated AST to 123. Rest of the liver parameters are normal. CT of the abdomen and pelvis done revealed no acute abdominal pathology. No amylase or lipase was tested. She unfortunately is a chronic smoker. Seldom drinks alcohol. She did not drink alcohol since her discharge from the last admission. Denies using any illicit drugs. REVIEW OF SYSTEMS: Twelve-point system reviewed. Symptomatology is limited as per history of present illness. PAST MEDICAL HISTORY: COPD. Not O2 dependent. PAST SURGICAL HISTORY: Recent ERCP and sphincterotomy. She also has had a right hip ORIF 2 months ago. FAMILY HISTORY: Negative for any GI or PAPER [employer]OX [employer] malignancies. SOCIAL HISTORY: Unfortunately a chronic smoker. Seldom drinks alcohol. Never used any illicit drugs. ALLERGIES: NO KNOWN DRUG ALLERGIES. HOME MEDICATIONS: Albuterol, clonidine, hydralazine, morphine, nicotine dermal patch, Zofran. PHYSICAL EXAMINATION: VITALS: Temperature 99.6, pulse 97, respiration 16, blood pressure 151/76 to 152/78, oxygen saturation 100% on 2 liter of nasal cannula. GENERAL: Low muscle mass body habitus, thin body habitus. HEENT: Moist mucous membrane. Anicteric sclerae. CVS: S1/S2 regular with a 2/6 flow murmur at the apex. LUNGS: Bilaterally grossly clear. ABDOMEN: Thin, nondistended. Mild palpable right upper quadrant and epigastric tenderness on deep palpation without rebound, rigidity or guarding. Positive bowel sounds. EXTREMITIES: Warm. No leg edema. LABORATORY DATA AND DIAGNOSTICS: WBC 11.23 up from 3.51, hemoglobin 14.7 up from 11.3, hematocrit 42.9 up from 33.6, MCV 100.5, platelet count 163. PT 11.9, INR 0.95. Sodium 137, potassium 4.4, chloride 101, bicarb 25, BUN 13, creatinine 0.70. Liver enzymes showed AST 113 which has gone up from 37, ALT 30 from 38, alkaline phosphatase 125 from 95, total bilirubin 0.[address] of the abdomen and pelvis with IV contrast showed 2.6 cm oval low attenuation lesion in the medial segment of the left hepatic lobe adjacent to the falciform ligament, a ligament fissure. It is unchanged. There has also been no change in 1 cm subcapsular heterogeneous lesion with septation in the hepatic dome laterally. No new hepatic lesions. There is a mild intrahepatic biliary dilatation in the left hepatic lobe. The common bile duct is normal in caliber, decreased since prior examination. Previously present debris within the common bile duct has decreased since prior examination. Gallbladder showed no radiopaque stones or sludge. No wall thickening. Spleen normal, pancreas normal. No focal lesion. Kidneys enhanced symmetrically. No bowel pathology. Appendix normal. No abnormal adenopathy or any free fluid. IMPRESSION: Acute onset of right upper quadrant and midepigastric pain with a slight elevation in the AST, persistent left intrahepatic ductal dilatation without any filling defect in the common bile duct. Gallbladder is normal without any sludge. Persistent left biliary channel dilatation. PLAN: I do not suspect any biliary colic here. This abdominal pain with elevation of AST only, other liver parameters are normal. Patient's MCV is also elevated. This is suspicious for possible occult underlying alcohol use. Will check amylase and lipase to check for underlying pancreatitis. Clear liquid diet. Aggressive IV fluid hydration with normal saline. IV PPI for GI prophylaxis. Continue to trend liver enzymes. If her liver enzymes climb up or abdominal pain remains persistent, this will further be investigated with upper endoscopy and repeat ERCP to examine left biliary channels. Will also check her tumor markers. I thank Dr. Bill for allowing me to participate in the care of this patient. Job#: [id number] EV
[2017-12-06] MEDS: SODIUM CHLORIDE 0.9% 1000ML 1,000 ML IV SCH ×2 (17:50→21:32)
[2017-12-06 20:00] VITALS: BP 162/93
[2017-12-06] MEDS: PIPER-TAZ 3.375 GM / NS 50ML IV SCH (21:29)
[2017-12-07] VITALS: BP 164/86
[2017-12-07] MEDS: MORPHINE SULFATE 2 MG/ML SYR IV PRN ×3 (01:24→08:35)
[2017-12-07] MEDS: ONDANSETRON HCL INJ 2 MG/ML VIAL IV PRN ×4 (01:25→20:57)
[2017-12-07 04:00] VITALS: BP 158/76
[2017-12-07] MEDS: PIPER-TAZ 3.375 GM / NS 50ML IV SCH ×3 (05:30→21:06)
[2017-12-07 05:51] LABS: BASOPHILS % 0.2 % (0.0-1.0); EOSINOPHILS % 0.2 % (0.0-6.0); HEMATOCRIT 35.1 % (34.2-44.1); LYMPHOCYTES # (AUTO) 0.5 (1.0-3.2); LYMPHOCYTES % 5.1 % (18.0-39.1); MEAN CORPUSCULAR HEMOGLOBIN 34.7 pg (28-32); MEAN CORPUSCULAR HGB CONC 34.2 g/dL (31-35); MEAN CORPUSCULAR VOLUME 101.4 fL (81-99); MONOCYTES # (AUTO) 0.7 (0.2-0.8); NEUTROPHILS # (AUTO) 8.4 (2.1-6.9); NEUTROPHILS % 86.8 % (38.7-80.0); PLATELET COUNT 139 x10e3/uL (140-360); RED BLOOD COUNT 3.46 x10e6/uL (3.6-5.1); RED CELL DISTRIBUTION WIDTH 13.7 % (11.7-14.4)
[2017-12-07 06:03] LABS: INR 1.22; PROTHROMBIN TIME 14.5 seconds (11.9-14.5)
[2017-12-07 06:04] LABS: PARTIAL THROMBOPLASTIN TIME 36.4 seconds (23.8-35.5)
[2017-12-07 06:10] LABS: ALANINE AMINOTRANSFERASE 71 IU/L (0-55); ALBUMIN 2.9 g/dL (3.5-5.0); ALKALINE PHOSPHATASE 118 IU/L (40-150); ANION GAP 9.7 mmol/L (8-16); BLOOD UREA NITROGEN 6 mg/dL (7-26); BUN/CREATININE RATIO 10 (6-25); CALCIUM 8.5 mg/dL (8.4-10.2); CARBON DIOXIDE 24 mmol/L (22-29); CHLORIDE 108 mmol/L (98-107); CREATININE, SERUM 0.58 mg/dL (0.57-1.11); EST GLOMERULAR FILTRATION RATE > 60 ML/MIN (60-); GLUCOSE 121 mg/dL (74-118); POTASSIUM 3.7 mmol/L (3.5-5.1); SODIUM 138 mmol/L (136-145)
[2017-12-07 07:00] LABS: LYMPHOCYTES % (MANUAL) 6 % (19-48); MONOCYTES % (MANUAL) 6 % (3.4-9.0); NEUTROPHILS % (MANUAL) 88 % (40-74)
[2017-12-07 07:01] LABS: PLATELET ESTIMATE SLIGHTLY DECREASED; PLATELET MORPHOLOGY COMMENT NORMAL; RBC MORPHOLOGY COMMENT NORMAL
[2017-12-07] MEDS: SODIUM CHLORIDE 0.9% 1000ML 1,000 ML IV SCH ×3 (07:30→16:18)
[2017-12-07 08:30] VITALS: BP 133/68
[2017-12-07] MEDS: NICOTINE 21 MG/EA PATCH TOP SCH (08:37)
[2017-12-07] MEDS: PANTOPRAZOLE 40 MG 10ML VIAL IV SCH ×2 (08:37→16:18)
[2017-12-07] MEDS: ALBUTEROL/IPRATROPIUM 3 ML NEB NEB PRN (12:08)
[2017-12-07] MEDS ORDERED: MORPHINE SULFATE 2 MG/ML SYR IV PRN (12:15)
[2017-12-07] MEDS ORDERED: MORPHINE SULFATE INJ 4 MG/ML INJ ONE (12:24)
[2017-12-07 12:32] VITALS: BP 161/84
--- NOTE | 2017-12-07 15:44 | Diagnostic Imaging Report ---
PROCEDURE:US GALLBLADDER COMPARISON:[facility], CT, CT ABDOMEN/PELVIS W, 12/06/2017, 11:51. INDICATIONS:RUQ PAIN TECHNIQUE: Payan-scale and color doppler transverse and longitudinal images of the right upper quadrant of the abdomen were obtained. FINDINGS: Liver: 14.5 cm in right mid-clavicular line. Normal echogenicity. 2.6 x 1.6 x 2.0 cm hypoechoic, solid-appearing lesion in the left hepatic lobe adjacent to the falciform ligament. Main portal vein: 0.8 cm, hepatopetal flow Gallbladder: Small, echogenic stones are noted in the gallbladder lumen, with small amount of sludge. No wall thickening, or pericholecystic fluid. Common Bile Duct: 0.4 cm. Mild intrahepatic bile duct dilation in the left hepatic lobe Sonographic Martin's sign: Negative Right kidney: 10.8 cm. Normal echogenicity. No solid masses or hydronephrosis. Pancreas: The visualized portions are unremarkable. Inferior vena cava: Patent Aorta: Atherosclerotic calcified plaque in the distal abdominal aorta Ascites: None in the right upper quadrant of the abdomen. CONCLUSION: 1. Cholelithiasis and small sludge, without sonographic evidence of cholecystitis. 2. Indeterminate 2.6 cm hypoechoic, solid-appearing lesion in the left hepatic lobe with adjacent mild left intrahepatic biliary ductal dilation. This may be further assessed with contrast-enhanced MRI abdomen with liver mass protocol. Zhen Cuenca M.D. Dictated by: Zhen Cuenca M.D. on 12/07/2017 at 15:49 Electronically approved by: Zhen Cuenca M.D. on 12/07/2017 at 15:49
[2017-12-07 16:07] VITALS: BP 157/77
[2017-12-07] MEDS: MORPHINE SULFATE INJ 4 MG/ML INJ IV PRN ×2 (16:18→20:57)
--- NOTE | 2017-12-07 17:06 | Diagnostic Imaging Report ---
PROCEDURE:US GUIDANCE FOR VASCULAR ACCESS COMPARISON:None. INDICATIONS:Lack of IV access FINDINGS:Ultrasound evaluation of potential access sites was performed. After successfully identifying a patent vessel, US guidance was used to puncture the vein. A permanent recording was created for the patient record. CONCLUSION:Successful IV access by Ultrasound guidance. Zhen Cuenca M.D. Dictated by: Zhen Cuenca M.D. on 12/07/2017 at 17:11 Electronically approved by: Zhen Cuenca M.D. on 12/07/2017 at 17:11
[2017-12-07 20:00] VITALS: BP 166/84
[2017-12-08] VITALS (8 sets, daily range): BP systolic 117–192; BP diastolic 69–99
[2017-12-08] MEDS: SODIUM CHLORIDE 0.9% 1000ML 1,000 ML IV SCH ×4 (00:12→21:10)
[2017-12-08] MEDS: MORPHINE SULFATE INJ 4 MG/ML INJ IV PRN ×4 (00:54→15:50)
[2017-12-08] MEDS: ONDANSETRON HCL INJ 2 MG/ML VIAL IV PRN ×3 (00:55→23:44)
[2017-12-08] MEDS: PIPER-TAZ 3.375 GM / NS 50ML IV SCH ×2 (05:16→13:02)
[2017-12-08 05:49] LABS: BASOPHILS % 0.2 % (0.0-1.0); EOSINOPHILS % 0.6 % (0.0-6.0); HEMATOCRIT 36.4 % (34.2-44.1); HEMOGLOBIN 12.3 g/dL (12.0-16.0); LYMPHOCYTES # (AUTO) 0.5 (1.0-3.2); LYMPHOCYTES % 7.8 % (18.0-39.1); MEAN CORPUSCULAR HEMOGLOBIN 34.5 pg (28-32); MEAN CORPUSCULAR HGB CONC 33.8 g/dL (31-35); MONOCYTES # (AUTO) 0.6 (0.2-0.8); MONOCYTES % 8.6 % (4.4-11.3); NEUTROPHILS # (AUTO) 5.4 (2.1-6.9); NEUTROPHILS % 82.5 % (38.7-80.0); PLATELET COUNT 121 x10e3/uL (140-360); RED BLOOD COUNT 3.57 x10e6/uL (3.6-5.1); RED CELL DISTRIBUTION WIDTH 13.4 % (11.7-14.4)
[2017-12-08 06:30] LABS: ALANINE AMINOTRANSFERASE 41 IU/L (0-55); ALBUMIN 2.7 g/dL (3.5-5.0); ALKALINE PHOSPHATASE 104 IU/L (40-150); ANION GAP 11.5 mmol/L (8-16); BILIRUBIN,DIRECT 0.5 mg/dL (0.0-0.5); BLOOD UREA NITROGEN 6 mg/dL (7-26); BUN/CREATININE RATIO 11 (6-25); CALCIUM 8.7 mg/dL (8.4-10.2); CARBON DIOXIDE 25 mmol/L (22-29); CHLORIDE 106 mmol/L (98-107); CREATININE, SERUM 0.54 mg/dL (0.57-1.11); EST GLOMERULAR FILTRATION RATE > 60 ML/MIN (60-); GLUCOSE 116 mg/dL (74-118); POTASSIUM 3.5 mmol/L (3.5-5.1); SODIUM 139 mmol/L (136-145)
[2017-12-08] MEDS ORDERED: MORPHINE SULFATE 2 MG/ML SYR ONE (09:08)
[2017-12-08] MEDS: PANTOPRAZOLE 40 MG 10ML VIAL IV SCH ×2 (09:20→17:00)
[2017-12-08] MEDS: NICOTINE 21 MG/EA PATCH TOP SCH (09:20)
[2017-12-08] MEDS ORDERED: MIDAZOLAM HCL 2 MG/2 ML VIAL ONE (12:44)
[2017-12-08] MEDS ORDERED: FENTANYL CITRATE/PF 100MCG/2 ML INJ ONE ×2 (12:44→20:02)
[2017-12-08] MEDS ORDERED: ROCURONIUM BROMIDE 10 MG/ML 5ML VIAL ONE (14:52)
[2017-12-08] MEDS ORDERED: PROPOFOL IV EMULSION 10 MG/ML 20 ML VIAL ONE (14:52)
[2017-12-08] MEDS ORDERED: DEXAMETHASONE SOD PHOS INJ 4 MG/ML VIAL ONE (14:52)
[2017-12-08] MEDS ORDERED: LIDOCAINE HCL 2% LOCAL INJ 5 ML SDV VIAL INJ ONE (14:52)
[2017-12-08] MEDS ORDERED: GLYCOPYRROLATE INJ 1MG/ 5 ML SYR ONE (14:52)
[2017-12-08] MEDS ORDERED: SEVOFLURANE INHAL SOLN 250 ML PEN BTL ONE (14:52)
[2017-12-08] MEDS ORDERED: BUPIVACAINE 0.25%/EPI 30ML SDV INJ ONE (18:30)
--- NOTE | 2017-12-08 20:57 | Operative Report ---
DATE OF PROCEDURE: December 08, 2017 PREOPERATIVE DIAGNOSES: 1. Cholecystitis. 2. Cholelithiasis. POSTOPERATIVE DIAGNOSES: 1. Cholecystitis. 2. Cholelithiasis. 3. Liver cirrhosis. OPERATION PERFORMED: Laparoscopic cholecystectomy. MUSIC CATALOGUER: Dr. Jamaal Cifuentes and QIANA Dalal. ANESTHESIA: General. COMPLICATIONS: None. ESTIMATED BLOOD LOSS: Minimal. DESCRIPTION OF PROCEDURE: With the patient lying in bed in the supine position under good general endotracheal anesthesia, the abdomen was prepped with Betadine solution and draped in the usual manner. A Veress needle was introduced into the umbilicus, and pneumoperitoneum was established without any difficulty. An 11-mm trocar was placed into the umbilicus, and a 10-mm video laparoscope was placed into the intra-abdominal cavity. Under direct vision, three 5-mm trocars were placed in the right subcostal region. Video laparoscopy at this point revealed some liver changes consistent with early liver cirrhosis. The gallbladder had some adhesions in its lower half. The rest of the abdominal exploration was otherwise within normal limits. The adhesions to the gallbladder were then slowly and carefully taken down. The peritoneum overlying the neck of the gallbladder was then opened and the cystic duct was identified. The cystic duct was followed to its junction with the common duct. Cystic duct was then circumferentially dissected away from the common duct, doubly clipped, and divided. The cystic artery was similarly doubly clipped and divided. The gallbladder was then slowly and carefully taken off the liver bed using the cautery scissors and perfect hemostasis was ascertained. The gallbladder was grasped through the umbilical port and removed without any difficulty. Video laparoscopy was then again carried out. The liver bed was found to be perfectly dry. All of the excess fluid was aspirated. The pneumoperitoneum was evacuated and all the trocars were removed under direct vision. The midline fascia at the umbilicus was then closed with a [id number] of #0 Vicryl. All layers were infiltrated on the way out with 0.25% Marcaine. The subcutaneous tissue was approximated with 3-0 Vicryl and the skin was closed with subcuticular 5-0 Vicryl. Benzoin, Steri-Strips, and Band-Aids were applied. The sponge, lap, and needle count was correct. The patient tolerated the procedure well and returned to the recovery room in stable condition. Job#: [id number]
[2017-12-08] MEDS: CEFOXITIN SOD 1 GM VIAL IV SCH (21:00)
[2017-12-08] MEDS: HYDROMORPHONE 1MG/1ML INJ IV PRN (23:44)
[2017-12-09] VITALS (7 sets, daily range): BP systolic 147–188; BP diastolic 73–88
[2017-12-09] MEDS ORDERED: CEFOXITIN 1GM/ DEXTROSE 50ML 50 ML IV SCH
[2017-12-09] MEDS: CEFOXITIN SOD 1 GM VIAL IV SCH ×4 (02:30→20:47)
[2017-12-09] MEDS: HYDROMORPHONE 1MG/1ML INJ IV PRN ×6 (03:45→22:36)
[2017-12-09] MEDS: HYDRALAZINE HCL 20 MG/ML VIAL IV PRN ×2 (05:10→20:40)
[2017-12-09] MEDS: ONDANSETRON HCL INJ 2 MG/ML VIAL IV PRN ×3 (07:55→22:36)
[2017-12-09] MEDS: NICOTINE 21 MG/EA PATCH TOP SCH (08:00)
[2017-12-09] MEDS ORDERED: KETOROLAC TROMETHAMINE 30 MG/ML VIAL IV PRN (10:00)
[2017-12-09] MEDS: ALBUTEROL/IPRATROPIUM 3 ML NEB NEB PRN (11:20)
[2017-12-09] MEDS: SODIUM CHLORIDE 0.9% 1000ML 1,000 ML IV SCH (15:32)
[2017-12-10] VITALS: BP 170/76
[2017-12-10] MEDS: SODIUM CHLORIDE 0.9% 1000ML 1,000 ML IV SCH ×2 (01:25→10:09)
[2017-12-10] MEDS: HYDROCODONE/APAP 7.5MG-325MG 1 EA TAB PO PRN ×3 (01:29→14:14)
[2017-12-10] MEDS: CEFOXITIN SOD 1 GM VIAL IV SCH ×3 (02:34→15:42)
[2017-12-10 04:00] VITALS: BP 181/85
[2017-12-10] MEDS: ONDANSETRON HCL INJ 2 MG/ML VIAL IV PRN (05:10)
[2017-12-10] MEDS: HYDROMORPHONE 1MG/1ML INJ IV PRN ×2 (05:10→11:45)
[2017-12-10] MEDS: HYDRALAZINE HCL 20 MG/ML VIAL IV PRN ×2 (05:10→11:29)
[2017-12-10 05:50] LABS: BASOPHILS % 0.5 % (0.0-1.0); EOSINOPHILS # (AUTO) 0.1 (0.0-0.4); EOSINOPHILS % 1.8 % (0.0-6.0); HEMATOCRIT 35.4 % (34.2-44.1); HEMOGLOBIN 12.3 g/dL (12.0-16.0); LYMPHOCYTES # (AUTO) 0.9 (1.0-3.2); LYMPHOCYTES % 23.5 % (18.0-39.1); MEAN CORPUSCULAR HEMOGLOBIN 34.8 pg (28-32); MEAN CORPUSCULAR HGB CONC 34.7 g/dL (31-35); MEAN CORPUSCULAR VOLUME 100.3 fL (81-99); MONOCYTES # (AUTO) 0.3 (0.2-0.8); MONOCYTES % 6.8 % (4.4-11.3); NEUTROPHILS # (AUTO) 2.6 (2.1-6.9); NEUTROPHILS % 67.1 % (38.7-80.0); PLATELET COUNT 157 x10e3/uL (140-360); RED BLOOD COUNT 3.53 x10e6/uL (3.6-5.1); RED CELL DISTRIBUTION WIDTH 13.1 % (11.7-14.4)
[2017-12-10 06:05] LABS: ANION GAP 12.3 mmol/L (8-16); BLOOD UREA NITROGEN < 5 mg/dL (7-26); CALCIUM 8.6 mg/dL (8.4-10.2); CARBON DIOXIDE 25 mmol/L (22-29); CHLORIDE 108 mmol/L (98-107); CREATININE, SERUM 0.61 mg/dL (0.57-1.11); EST GLOMERULAR FILTRATION RATE > 60 ML/MIN (60-); GLUCOSE 103 mg/dL (74-118); POTASSIUM 3.3 mmol/L (3.5-5.1); SODIUM 142 mmol/L (136-145)
[2017-12-10 06:13] LABS: BUN/CREATININE RATIO 8 (6-25)
[2017-12-10 07:47] VITALS: BP 166/80
[2017-12-10] MEDS: NICOTINE 21 MG/EA PATCH TOP SCH (08:08)
[2017-12-10 15:40] VITALS: BP 160/80
[2017-12-10] MEDS ORDERED: HYDROCODONE/APAP 5MG-325MG TAB PO NR (16:00)
[2017-12-10] MEDS ORDERED: AMLODIPINE BESYL5 MG PO (16:08)
[2017-12-10] MEDS ORDERED: TYLENOL WITH C1 EACH PO (16:08)
[2017-12-10] MEDS ORDERED: AMLODIPINE BESYLATE 5 MG TAB PO NR (16:15)
[2017-12-10 18:46] VITALS: BP 156/82
--- NOTE | 2017-12-10 21:33 | Discharge Summary ---
CONSULTING PHYSICIAN: Dr. Geo Cifuentes Discharged the patient home. DISCHARGE DIAGNOSES: 1. Acute cholecystitis, status post laparoscopic cholecystectomy. 2. Hypokalemia, status post replacement. 3. Elevated blood pressure during the hospital stay, initiated on medications at discharge. 4. History of chronic obstructive pulmonary disease, on nebulizer treatments. HOSPITAL COURSE: Ms. Virginia Billy is a 62-year-old female. She had abnormal liver enzymes prior admission. On prior admission, she had a CT scan as well as MRCP that showed evidence of possible stone in the CBD, so she underwent ERCP, sphincterotomy, and balloon sweep with complete ductal clearance, no stone was retrieved or removed during the last ERCP. Patient's liver enzymes have normalized. She was discharged home and she was supposed to follow up and get a lap mary as outpatient, but the patient represented to the emergency room on December 06, 2017 secondary to worsening right upper quadrant abdominal pain. She had evidence of acute cholecystitis. General surgery, Dr. Geo Cifuentes was consulted. Patient underwent laparoscopic cholecystectomy in-house in the hospital. She is feeling better, now she is able to tolerate diet. Her blood pressure has been persistently elevated during the hospital stay, hence she was initiated on antihypertensive medications on discharge. She has history of tobacco use and she stated that she is trying to quit. She currently does not have a PCP. I have strongly advised her to follow up with primary care physician in 1 week with blood pressure log for titration of her medications. She will be discharged home on Tylenol No. 3 as needed for pain control. She was advised to follow up with PCP in 1 week with a blood pressure log and general surgery, Dr. Cifuentes in 10 days. She also has history of hepatitis C and atrial flutter as well. CONDITION AT TIME OF DISCHARGE: Stable. MEDICATIONS: Per JUL. ACTIVITY: As tolerated. DIET: Heart healthy diet. FOLLOWUP: The patient was advised to follow up with primary care physician and general surgery in the next 1 week to 10 days. The time spent for discharge summary is over 30 minutes. I have seen and examined the patient on the day of discharge. FABIOLA SALMERON MD Job#: [id number]
== END 2017-12-10 19:37 | disposition home or self-care (01) | DRG 418 ==
LOC: ER 09:51 → ERHOLD 14:07 → MED/SURG3 16:04
PROVIDERS: ADMIT Internal Medicine; ATTEND Internal Medicine
PROC: 0FT44ZZ Resection of Gallbladder, Percutaneous Endoscopic Approach (ICD-10-PCS; principal; 2017-12-08 12:00)
DX: K80.00 Calculus of gallbladder with acute cholecystitis without obstruction (principal); J44.1 Chronic obstructive pulmonary disease with (acute) exacerbation; F17.210 Nicotine dependence, cigarettes, uncomplicated; I10 Essential (primary) hypertension; B19.20 Unspecified viral hepatitis C without hepatic coma; K82.8 Other specified diseases of gallbladder; E87.6 Hypokalemia
CPT/HCPCS: 36415; 74177; 76705; 76937; 80048; 80053; 80076; 81001; 82150; 82378; 83605; 83690; 84100; 85025; 85610; 85730; 86301; 87040; 88304; 93005; 94640; 96361; 99284; C1766; J0360; J0500; J0694; J1100; J1170; J1885; J2001; J2250; J2270; J2405; J2543; J2765; J7030; Q9967

== ENCOUNTER 2018-03-07 21:43 | Emergency (ER) | payer OTHER ==
[~2018-03-07] VITALS: Ht 160 cm; Wt 39.0 kg
[~2018-03-07 21:43] MED LIST changes: +AMLODIPINE BESYL5 MG PO; +TYLENOL WITH C1 EACH PO
--- OUTSIDE RECORDS SUMMARY | 2018-03-07 21:47 | XMS REPORT | Clinical Summary ---
Author Author [facility] Organization [facility] Address Unknown Phone Unavailable Care Team Providers Care Tower Air Traffic Control Specialist Name Role Phone Asked, No Pcp PCP Unavailable Allergies No Known Allergies Current Medications Prescription Sig. Disp. Refills Start End Date Status Date albuterol (PROAIR Inhale 2 puffs every 6 Active HFA,PROVENTIL (six) hours as needed for HFA,VENTOLIN HFA) 90 wheezing. mcg/actuation inhaler Active Problems Not on file Social History Tobacco Use Types Packs/Day Years Used Date Current Every Day Smoker 0.5 Alcohol Use Drinks/Week oz/Week Comments No Sex Assigned at Date Recorded Not on file Last Filed Vital Signs Not on file Plan of Treatment Health Maintenance Due Date Last Done Comments CERVICAL CANCER SCREENING 1974 BREAST CANCER SCREENING 10/27/2003 COLON CANCER SCREENING 10/27/2003 SHINGRIX VACCINE (#1) 10/27/2003 ZOSTER VACCINE 2013 INFLUENZA VACCINE 12/13/2017 Results Not on fileafter 03/06/2017 Insurance Payer Benefit Subscriber ID Type Phone Address Plan / Group [employer] P[employer] xxxxxxxxxxx PPO NETWORK
[2018-03-07] MEDS ORDERED: ONDANSETRON HCL INJ 2 MG/ML VIAL IV STA (22:13)
[2018-03-07] MEDS ORDERED: ONDANSETRON HCL INJ 2 MG/ML VIAL ONE (22:20)
--- NOTE | 2018-03-07 22:51 | Diagnostic Imaging Report ---
CHEST SINGLE (PORTABLE), 03/07/2018 10:13 PM Technique: CHEST SINGLE (PORTABLE) Comparison: 12/05/2017 shortness of breath Clinical history: Shortness of breath Findings: Stable cardiomediastinal silhouette with aortic calcifications. Hyperinflation without consolidation. No effusion or pneumothorax. Impression: 1. Lines/Tubes: None 2. No acute abnormality. Signed by: Dr Mckenzie Link MD on 03/07/2018 10:47 PM
[2018-03-07 23:04] LABS: BASOPHILS % 0.3 % (0.0-1.0); EOSINOPHILS # (AUTO) 0.1 (0.0-0.4); EOSINOPHILS % 0.8 % (0.0-6.0); HEMATOCRIT 46.9 % (34.2-44.1); HEMOGLOBIN 16.3 g/dL (12.0-16.0); LYMPHOCYTES # (AUTO) 1.1 (1.0-3.2); LYMPHOCYTES % 14.4 % (18.0-39.1); MEAN CORPUSCULAR HEMOGLOBIN 33.9 pg (28-32); MEAN CORPUSCULAR HGB CONC 34.8 g/dL (31-35); MEAN CORPUSCULAR VOLUME 97.5 fL (81-99); MONOCYTES # (AUTO) 0.7 (0.2-0.8); MONOCYTES % 8.4 % (4.4-11.3); NEUTROPHILS % 75.8 % (38.7-80.0); PLATELET COUNT 163 x10e3/uL (140-360); RED BLOOD COUNT 4.81 x10e6/uL (3.6-5.1)
[2018-03-07 23:08] LABS: INR 0.8; PROTHROMBIN TIME 11.8 seconds (11.9-14.5)
[2018-03-07 23:09] LABS: PARTIAL THROMBOPLASTIN TIME 27.4 seconds (23.8-35.5)
[2018-03-07] MEDS ORDERED: METOPROLOL TARTRATE INJ 1 MG/ML VIAL ONE (23:11)
[2018-03-07] MEDS ORDERED: MORPHINE SULFATE 2 MG/ML SYR ONE (23:12)
[2018-03-07 23:19] LABS: ALANINE AMINOTRANSFERASE 100 IU/L (0-55); ALBUMIN 4.2 g/dL (3.5-5.0); ALBUMIN/GLOBULIN RATIO 1.3 (0.8-2.0); ALKALINE PHOSPHATASE 135 IU/L (40-150); AMYLASE 48 U/L (25-125); ANION GAP 13.9 mmol/L (8-16); BLOOD UREA NITROGEN 11 mg/dL (7-26); BUN/CREATININE RATIO 17 (6-25); CARBON DIOXIDE 29 mmol/L (22-29); CHLORIDE 96 mmol/L (98-107); CREATINE KINASE 167 IU/L (29-168); CREATININE, SERUM 0.65 mg/dL (0.57-1.11); EST GLOMERULAR FILTRATION RATE > 60 ML/MIN (60-); GLUCOSE 141 mg/dL (74-118); LIPASE 13 U/L (8-78); POTASSIUM 3.9 mmol/L (3.5-5.1); SODIUM 135 mmol/L (136-145)
[2018-03-07] MEDS ORDERED: PANTOPRAZOLE INJ 40 MG in SODIUM CHLORIDE 0.9% 50ML 50 ML IV STA (23:25)
[2018-03-07] MEDS ORDERED: MORPHINE SULFATE 2 MG/ML SYR IV STA (23:26)
[2018-03-07] MEDS ORDERED: SODIUM CHLORIDE 0.9% 1000ML 1,000 ML IV SCH (23:30)
[2018-03-07] MEDS ORDERED: METOPROLOL TARTRATE INJ 1 MG/ML VIAL IV ONE ×2 (23:30)
[2018-03-07] MEDS ORDERED: OCTREOTIDE ACETATE 500 MCG in SODIUM CHLORIDE 0.9% 250ML 250 ML IV SCH (23:30)
[2018-03-07] MEDS ORDERED: SODIUM CHLORIDE 0.9% 50ML 50 ML ONE (23:31)
[2018-03-07] MEDS ORDERED: NORCO 10-325 T1 EACH PO (23:32)
[2018-03-07] MEDS ORDERED: PANTOPRAZOLE 40 MG 10ML VIAL ONE (23:32)
[2018-03-07] MEDS ORDERED: PROAIR HFA INH8.5 GM (23:32)
[2018-03-07] MEDS ORDERED: TIZANIDINE HCL4 MG PO (23:32)
[2018-03-07 23:39] LABS: CALCIUM 10.1 mg/dL (8.4-10.2)
[2018-03-08] MEDS ORDERED: HYDRALAZINE HCL 20 MG/ML VIAL ONE ×2 (00:29→01:31)
[2018-03-08] MEDS ORDERED: PROPRANOLOL HCL 1 MG/ML VIAL INJ ONE ×2 (00:30→00:45)
[2018-03-08] MEDS ORDERED: PROPRANOLOL HCL 1 MG/ML VIAL ONE (00:35)
[2018-03-08 00:39] LABS: CLARITY,URINE CLOUDY (CLEAR); COLOR,URINE YELLOW (YELLOW); LEUKOCYTE ESTERASE ,URINE NEGATIVE (NEGATIVE); NITRITE,URINE NEGATIVE (NEGATIVE); PROTEIN,URINE DIPSTICK NEGATIVE (NEGATIVE)
[2018-03-08 00:40] LABS: BILIRUBIN,URINE NEGATIVE (NEGATIVE); KETONES,URINE NEGATIVE (NEGATIVE); URINE UROBILINOGEN 0.2 mg/dL (0.2 - 1)
[2018-03-08] MEDS ORDERED: PROMETHAZINE 25MG/SOD CHL 0.9% 50 ML ONE (00:48)
[2018-03-08 00:51] LABS: BACTERIA,URINE MODERATE /HPF; EPITHELIAL CELLS,URINE RARE /LPF; WBC,URINE (MAN) 0-5 /HPF (0-5)
--- NOTE | 2018-03-08 00:51 | Diagnostic Imaging Report ---
EXAM: CT ABDOMEN/PELVIS W DATE: 03/07/2018 10:16 PM INDICATION: Abdominal pain, newly elevated bilirubin. COMPARISON: None TECHNIQUE: The abdomen and pelvis were scanned using a multidetector helical scanner. Coronal and sagittal reformations were obtained. CT low dose techniques were utilized, as applicable. IV Contrast: 100 ml Isovue 300/370 FINDINGS: LOWER THORAX: No consolidations LIVER/BILIARY: Stable cystic and solid left liver lesion measuring 2.7 x 2 cm. Interval increase in intrahepatic left and extrahepatic biliary ductal dilation with intraluminal contents measuring fluid as well as higher attenuation. Likely reactive perfusional or cholestatic hyperemia involving the left hepatic lobe. GALLBLADDER: Interval cholecystectomy with trace fluid in the surgical bed in right upper quadrant SPLEEN: Unremarkable PANCREAS: Persistent diffuse prominence of the main pancreatic duct. No discrete masses. ADRENALS: Stable appearance KIDNEYS: No suspicious renal masses. No hydronephrosis. GI TRACT: No wall thickening or evidence of obstruction. VESSELS: Severe atherosclerotic changes without aneurysm or acute dissection. PERITONEUM/RETROPERITONEUM: No free air. Unchanged focal calcification the right paracolic gutter. LYMPH NODES: No lymphadenopathy REPRODUCTIVE ORGANS/BLADDER: Limited assessment due to streak artifact from right hip arthroplasty [place] seen in the region of the bladder. BONES: Degenerative changes, worse at L5-S1. IMPRESSION: 1. Status post interval cholecystectomy with increased intrahepatic left and extrahepatic biliary ductal dilation. Given high density within the biliary tree and newly elevated bilirubin, this may be related to sludge/stones. 2. Stable complex cystic left liver lesion with associated biliary/peribiliary soft tissue density. It is possibly this simply reflects a biloma with obstructing stones/sludge although the differential includes tumor/cholangiocarcinoma. Consider follow-up MRI/MRCP. Signed by: Dr Mckenzie Link MD on 03/08/2018 12:48 AM
[2018-03-08 00:52] LABS: AMORPHOUS SEDIMENT,URINE MANY (FEW)
[2018-03-08] MEDS ORDERED: PROMETHAZINE 25MG/ NS 50ML (IV) IV ONE (01:00)
[2018-03-08] MEDS ORDERED: HYDRALAZINE HCL 20 MG/ML VIAL IV ONE (01:30)
[2018-03-08] MEDS ORDERED: SODIUM CHLORIDE 0.9% 50ML 50 ML ONE (02:40)
[2018-03-08] MEDS ORDERED: IOPAMIDOL 370 MG/ML 200 ML INFUS..BTL INJ ONE (02:40)
[2018-03-08] MEDS ORDERED: MORPHINE SULFATE 2 MG/ML SYR ONE (03:19)
[2018-03-08] MEDS ORDERED: PANTOPRAZOL 40MG/SOD CHL 0.9% 50 ML IV ONE (03:23)
[2018-03-08] MEDS ORDERED: MORPHINE SULFATE 2 MG/ML SYR IV STA (03:27)
[2018-03-08 03:28] VITALS: BP 136/70
== END 2018-03-08 04:35 | disposition other institution (70) ==
LOC: ER 21:43
DX: R10.11 Right upper quadrant pain (principal); K92.0 Hematemesis; K80.20 Calculus of gallbladder without cholecystitis without obstruction; I10 Essential (primary) hypertension; I16.9 Hypertensive crisis, unspecified
CPT/HCPCS: 36415; 51700; 71045; 74177; 80053; 81001; 82150; 82550; 82553; 83690; 84484; 85025; 85610; 85730; 93005; 99284; J0360; J1800; J2270 ×2; J2353; J2405; J2550; J7030; J7050; Q9967

== ENCOUNTER 2018-07-07 19:19 | Inpatient (IN) | payer OTHER ==
[~2018-07-07] VITALS: Ht 160 cm; Wt 46.0 kg
[2018-07-07] MEDS: ALBUTEROL/IPRATROPIUM 3 ML NEB NEB SCH (00:38)
[~2018-07-07 19:19] MED LIST changes: +PROAIR HFA INH8.5 GM INH; +TIZANIDINE HCL4 MG PO
--- OUTSIDE RECORDS SUMMARY | 2018-07-07 19:22 | XMS REPORT | Clinical Summary ---
Author Author [facility] Organization [facility] Address Unknown Phone Unavailable Care Team Providers Care Superintendent Tests Name Role Phone Asked, No Pcp PCP Unavailable Allergies No Known Allergies Medications End Date Status Medication Sig Dispensed Refills Start Date Active albuterol (PROAIR Inhale 2 0 HFA,PROVENTIL puffs every 6 HFA,VENTOLIN HFA) 90 (six) hours mcg/actuation inhaler as needed for wheezing. Active Problems Not on file Social History Date Tobacco Use Types Packs/Day Years Used Current Every Day Smoker 0.5 Alcohol Use Drinks/Week oz/Week Comments No Sex Assigned at Date Recorded Not on file Industry Job Start Date Occupation Not on file Not on file Not on file Travel End Travel History Travel Start No recent travel history available. Last Filed Vital Signs Not on file Plan of Treatment Health Maintenance Due Date Last Done Comments CERVICAL CANCER SCREENING 1974 BREAST CANCER SCREENING 10/27/2003 COLON CANCER SCREENING 10/27/2003 SHINGLES VACCINES (#1) 10/27/2003 INFLUENZA VACCINE 12/13/2017 Results Not on fileafter 07/06/2017 Insurance Payer Benefit Subscriber ID Type Phone Address Plan / Group [employer] PPO xxxxxxxxxxx PPO NETWORK Advance Directives Patient has advance care planning documents on file. For more information, sophie cadena contact: Juanpablo Parikh [address] [place] [address]
--- OUTSIDE RECORDS SUMMARY | 2018-07-07 19:23 | XMS REPORT | Clinical Summary ---
Author Author GRACE BillGuardEastern Idaho Regional Medical CenterVirtual Telephone & TelegraphNorthwest Health Emergency DepartmentExosEastern State Hospital Address Unknown Phone Unavailable Care Team Providers Care Broadcast Designer Name Role Phone Pcp, No PCP Unavailable Allergies No Known Allergies Medications End Date Status Medication Sig Dispensed Refills Start Date Active gabapentin (NEURONTIN) Take 100 mg 0 100 MG capsule by mouth 2 (two) times daily. Active HYDROcodone-acetaminophen Take 1 tablet 0 (NORCO 10-325) 10-325 mg by mouth per tablet every 4 (four) hours as needed for Pain. Active tiZANidine (ZANAFLEX) 4 Take 4 mg by 0 MG tablet mouth every 12 (twelve) hours. Active albuterol HFA (VENTOLIN Inhale 2 0 HFA) 90 mcg/actuation puffs by inhaler mouth via inhaler every 6 (six) hours as needed for Wheezing. 03/15/2019 Active multivitamin (THERAGRAN) Take 1 tablet 30 tablet 0 tablet by mouth 8 daily. 03/14/2019 Active amLODIPine (NORVASC) 5 MG Take 2 60 tablet 0 tablet tablets (10 8 mg total) by mouth daily. 03/15/2019 Active pantoprazole (PROTONIX) Take 1 tablet 30 tablet 0 40 MG tablet (40 mg total) 8 by mouth daily. 03/14/2018 Discontinued amLODIPine (NORVASC) 5 MG Take 5 mg by 0 tablet mouth daily. 03/24/2018 acetaminophen-codeine Take 1 tablet 20 tablet 0 (TYLENOL-CODEINE #3) by mouth 8 300-30 mg per tablet every 4 (four) hours as needed for Pain for up to 10 days. Max Daily Amount: 6 tablets Active Problems Problem Noted Date Severe protein-energy malnutrition 03/12/2018 Epigastric pain 03/09/2018 Chronic obstructive pulmonary disease 03/09/2018 Abnormal LFTs 03/08/2018 Encounters Care Team Description Date Type Specialty Braulio Scott NP Results 04/04/2018 Telephone Hepatology Braulio Scott NP follow up on Dr. Conner recommendations 04/04/2018 Telephone Hepatology Selena Merida RN biopsy notes 03/26/2018 Telephone Hepatology Franck Vieyra Jr., MD 03/09/2018 Anesthesia Gastroenterology Event RendonCampbell covarrubias MD UPPER ENDOSCOPY,ULTRASOUND 03/09/2018 Surgery Gastroenterology Camila, MD Wilson Thomas, MD Mark Adhikari, Pato Gibson MD Epigastric pain (Primary Dx); Hematemesis with nausea; Malnutrition, unspecified type (HCC); Essential hypertension; Abnormal LFTs; Severe protein-energy malnutrition (HCC); Liver masses; Liver mass 03/08/2018 [facility] General Internal Medicine - Encounter 03/14/2018 03/08/2018 Orders Only General Internal Medicine after 07/06/2017 Social History Date Tobacco Use Types Packs/Day Years Used Current Some Day Smoker Cigarettes 0.5 48 Smokeless Tobacco: Former User Tobacco Cessation: Ready to Quit: Yes; Counseling Given: No Comments: pt is ready to quit, but pt states it's difficult Alcohol Use Drinks/Week oz/Week Comments No Sex Assigned at Date Recorded Not on file Industry Job Start Date Occupation Not on file Not on file Not on file Travel End Travel History Travel Start No recent travel history available. Last Filed Vital Signs Time Taken Vital Sign Reading 03/14/2018 3:34 PM CDT Blood Pressure 187/81 03/14/2018 3:34 PM CDT Pulse 104 03/14/2018 3:34 PM CDT Temperature 36.6 C (97.9 F) 03/14/2018 3:34 PM CDT Respiratory Rate 20 03/14/2018 3:34 PM CDT Oxygen Saturation 94% - Inhaled Oxygen - Concentration 03/12/2018 6:00 AM CDT Weight 36.2 kg (79 lb 12.9 oz) 03/08/2018 5:00 AM CDT Height 162.6 cm (5' 4") 03/12/2018 6:00 AM CDT Body Mass Index 13.7 Plan of Treatment Not on file Procedures Comments Procedure Name Priority Date/Time Associated Diagnosis RHYTHM STRIP - SCAN 03/15/2018 9:10 AM CDT HEPATITIS B E ANTIGEN Routine 03/14/2018 6:21 PM CDT HEPATITIS B E ANTIBODY Routine 03/14/2018 6:21 PM CDT TISSUE EXAM AP Routine 03/14/2018 6:00 PM CDT HEPATITIS B PCR, Routine 03/14/2018 QUANTITATIVE 11:02 AM CDT CBC W/PLT COUNT & AUTO Routine 03/14/2018 DIFFERENTIAL 5:34 AM CDT COMPREHENSIVE METABOLIC Routine 03/14/2018 PANEL 5:34 AM CDT CBC W/PLT COUNT & AUTO Routine 03/14/2018 DIFFERENTIAL 5:34 AM CDT US LIVER BIOPSY NOHEMY 03/13/2018 4:52 PM CDT CBC W/PLT COUNT & AUTO NOHEMY 03/13/2018 DIFFERENTIAL 11:59 AM CDT BILIRUBIN, DIRECT NOHEMY 03/13/2018 11:59 AM CDT GAMMA GLUTAMYL NOHEMY 03/13/2018 TRANSFERASE (GGT) 11:59 AM CDT COMPREHENSIVE METABOLIC NOHEMY 03/13/2018 PANEL 11:59 AM CDT CBC W/PLT COUNT & AUTO NOHEMY 03/13/2018 DIFFERENTIAL 11:59 AM CDT APTT Routine 03/13/2018 10:29 AM CDT PROTHROMBIN TIME/INR Routine 03/13/2018 10:29 AM CDT HEPATITIS C GENOTYPE Routine 03/13/2018 8:58 AM CDT HEPATITIS C PCR, Routine 03/13/2018 QUANTITATIVE 8:58 AM CDT CARCINOEMBRYONIC ANTIGEN Routine 03/12/2018 (CEA) 5:08 PM CDT ALPHA FETOPROTEIN (AFP), Routine 03/12/2018 TUMOR MARKER 5:08 PM CDT IMMUNOGLOBULIN G (IGG) Routine 03/12/2018 5:08 PM CDT GAMMA GLUTAMYL Routine 03/12/2018 TRANSFERASE (GGT) 5:08 PM CDT [id number]\\, Routine 03/12/2018 SERUM 5:08 PM CDT ANTI-MITOCHONDRIAL AB, Routine 03/12/2018 REFLEX TO TITER 5:08 PM CDT ANTI-NUCLEAR ANTIBODY Routine 03/12/2018 (ANTHONY) 5:08 PM CDT CERULOPLASMIN Routine 03/12/2018 5:08 PM CDT HEPATITIS C ANTIBODY Routine 03/12/2018 5:08 PM CDT HEPATITIS B SURFACE Routine 03/12/2018 ANTIGEN 5:08 PM CDT HEPATITIS B SURFACE Routine 03/12/2018 ANTIBODY 5:08 PM CDT HEPATITIS B CORE Routine 03/12/2018 ANTIBODY, TOTAL 5:08 PM CDT HEPATITIS A ANTIBODY, IGG Routine 03/12/2018 5:08 PM CDT IRON, TIBC, % SAT. Routine 03/12/2018 (WITHOUT FERRITIN) 5:08 PM CDT FERRITIN Routine 03/12/2018 5:08 PM CDT CARCINOEMBRYONIC ANTIGEN Routine 03/11/2018 (CEA) 2:24 PM CDT CARBOHYDRATE ANTIGEN 19-9 Routine 03/11/2018 (CA 19-9) 2:24 PM CDT ALPHA FETOPROTEIN (AFP), Routine 03/11/2018 TUMOR MARKER 2:24 PM CDT CBC W/PLT COUNT & AUTO Routine 03/11/2018 DIFFERENTIAL 4:21 AM CDT CBC W/PLT COUNT & AUTO Routine 03/11/2018 DIFFERENTIAL 4:21 AM CDT COMPREHENSIVE METABOLIC Routine 03/11/2018 PANEL 4:21 AM CDT TRANSFUSION SERVICE 03/10/2018 REPORT - SCAN 5:[address] ABDOMEN - LIVER Routine 03/10/2018 EVALUATION WITHOUT/WITH 8:35 AM CDT IV CONTRAST CBC W/PLT COUNT & AUTO Routine 03/10/2018 DIFFERENTIAL 5:14 AM CDT CBC W/PLT COUNT & AUTO Routine 03/10/2018 DIFFERENTIAL 5:14 AM CDT COMPREHENSIVE METABOLIC Routine 03/10/2018 PANEL 5:14 AM CDT POCT-GLUCOSE METER Routine 03/09/2018 11:51 PM CDT REPORT OF PROCEDURE - 03/09/2018 ENDOSCOPY URL 1:41 PM CDT REPORT OF PROCEDURE - 03/09/2018 ENDOSCOPY URL 1:39 PM CDT FL ERCP Routine 03/09/2018 12:10 PM CDT PROCEDURE W/ C-ARM 03/09/2018 Jaundice 11:00 AM CDT Biliary obstruction Special Needs (C-ARM) ERCP,BALLOON SWEEPING 03/09/2018 Jaundice 11:00 AM CDT Biliary obstruction Special Needs (C-ARM) UPPER 03/09/2018 Jaundice ENDOSCOPY,ULTRASOUND 11:00 AM CDT Biliary obstruction Special Needs (C-ARM) CBC W/PLT COUNT & AUTO Routine 03/09/2018 DIFFERENTIAL 5:26 AM CDT TYPE AND SCREEN, Routine 03/09/2018 AUTOMATED 5:26 AM CDT MAGNESIUM Routine 03/09/2018 5:26 AM CDT PROTHROMBIN TIME/INR Routine 03/09/2018 5:26 AM CDT CBC W/PLT COUNT & AUTO Routine 03/09/2018 DIFFERENTIAL 5:26 AM CDT COMPREHENSIVE METABOLIC Routine 03/09/2018 PANEL 5:26 AM CDT US ABDOMEN LIMITED NOHEMY 03/09/2018 2:50 AM CDT PHOSPHORUS Add-On 03/08/2018 9:57 PM CDT MAGNESIUM Add-On 03/08/2018 9:57 PM CDT COMPREHENSIVE METABOLIC STAT 03/08/2018 PANEL 9:57 PM CDT TROPONIN I STAT 03/08/2018 9:57 PM CDT BLOOD CULTURE Routine 03/08/2018 9:57 PM CDT XR CHEST 1 VIEW STAT 03/08/2018 PORTABLE/BEDSIDE 9:18 PM CDT CBC W/PLT COUNT & AUTO STAT 03/08/2018 DIFFERENTIAL 9:10 PM CDT LIPASE Routine 03/08/2018 9:10 PM CDT CBC W/PLT COUNT & AUTO STAT 03/08/2018 DIFFERENTIAL 9:10 PM CDT PHOSPHORUS STAT 03/08/2018 9:10 PM CDT MAGNESIUM STAT 03/08/2018 9:10 PM CDT BLOOD GAS, VENOUS STAT 03/08/2018 9:10 PM CDT LACTIC ACID, VENOUS, STAT 03/08/2018 WHOLE BLOOD 9:10 PM CDT BLOOD CULTURE Routine 03/08/2018 9:09 PM CDT ECG 12-LEAD Routine 03/08/2018 9:04 PM CDT Procedure Note - Interface, External Ris In - 03/08/2018 9:11 PM CDT Ventricula r Rate 124 BPM Atrial Rate 124 BPM P-R Interval 134 ms QRS Duration 78 ms Q-T Interval 332 ms QTC Calculatio n(Bazett) 476 ms P Tutor Key 88 degrees R Tutor Key 97 degrees T Tutor Key 68 degrees Sinus tachycardi a Right atrial enlargemen t Rightward axis Pulmonary disease pattern Abnormal ECG No previous ECGs available ECG 12-LEAD STAT 03/08/2018 9:04 PM CDT CBC W/PLT COUNT & AUTO Routine 03/08/2018 DIFFERENTIAL 8:40 AM CDT HEPATIC FUNCTION PANEL Routine 03/08/2018 8:40 AM CDT BASIC METABOLIC PANEL (7) Routine 03/08/2018 8:40 AM CDT CBC W/PLT COUNT & AUTO Routine 03/08/2018 DIFFERENTIAL 8:40 AM CDT after 07/06/2017 Results * RHYTHM STRIP - SCAN (03/15/2018 9:10 AM CDT) Narrative Performed At * Hepatitis B e antibody (03/14/2018 6:21 PM CDT) Hep Be Ab(Anti-Hbe) NONREACTIVEComment: REFERENCE [facility] RANGE: NONREACTIVE INCORPORATED Specimen Blood - Arm, Right Narrative Performed At Performing Lab [facility] *[id number] [address] [place] [address] Nereida Martinez MD Performing Organization Address [facility] Phone Number [facility] [employer], [address] [facility] [address] * Hepatitis B e antigen (03/14/2018 6:21 PM CDT) Hep Be Ag (Antigen) NONREACTIVEComment: REFERENCE [facility] RANGES: NONREACTIVE INCORPORATED Specimen Blood - Arm, Right Narrative Performed At Performing Lab [facility] *[id number] [address] [place] [address] Nereida Martinez MD Performing Organization Address City/[facility] Cent[facility] Phone Number [facility] [employer] [place], [address] [facility] [address] * Tissue Exam (03/14/2018 6:00 PM CDT) Case Report Surgical Pathology [facility] Case: [id number] Authorizing Provider:Leoncio Conner MD Collected: 03/14/2018 1800 Ordering Location: [address] Received: 03/14/2018 0209 Service Pathologist: Agustin Jerome MD Specimen:Biopsy, Liver ADDENDUM The addendum is being issued [facility] to report the results of [facility] immunostain for Cam 5.2 and CD20. The diagnosis remains unchanged. RESULTS Immunostain for Cam 5.2 and CD20 are negative in tumor. (appropriate controls). [id number], [id number] DIAGNOSIS LIVER, ULTRASOUND-GUIDED [facility] NEEDLE BIOPSIES OF LEFT [facility] HEPATIC LOBE TUMOR - NECROTIC TUMOR, see comment - SMALL PORTION OF BENIGN LIVER PARENCHYMA Signing Pathologist Direct Phone Line: [phone] COMMENT The liver biopsy shows pieces [facility] of necrotic tissue which most [facility] likely represent necrotic tumor. No viable tumor is seen. Re-biopsy may be considered for a definitive diagnosis. CPT Code(s) 77008 [facility] CLINICAL HISTORY Liver mass [facility] SPECIMEN SOURCE Ultrasound-guided needle [facility] biopsies of left hepatic lobe [facility] tumor GROSS DESCRIPTION Received in formalin labeled [facility] with patient's name and MRN [facility] are multiple tissue cores ranging from 0.2 cm to 1.5 cm in length respectively with an average diameter of 0.1 cm. Entirely submitted in A1. MICROSCOPIC DESCRIPTION Section shows pieces of [facility] necrotic tissue composed of [facility] ghost outlines of atypical cells. There is a single core of viable fibrous tissue with few bile ducts. In addition a tiny piece of benign hepatic parenchyma is present. Specimen Tissue - Biopsy, Liver Performing Organization Address City/State/Zipcode Phone Number [facility] [address] [place] [address] MEDICAL CENTER * Hepatitis B PCR, quantitative (03/14/2018 11:02 AM CDT) HBV PCR, Quantitative HBV DNA not detected HBV DNA not detected [facility] Specimen Blood Narrative Performed At This test uses a Real-Time Polymerase Chain Reaction (RT-PCR) methodology and [facility] was performed using [employer]/FRANK TaqMan HBV Test, v2.0 ([facility] [employer] Reportable range for this assay is 20 - 170,000,000 IU per mL (1.30 - 8.23 Log IU/mL). Performing Organization Address City/State/Zipcode Phone Number [facility] [address] [place] [address] MEDICAL CENTER * CBC with platelet count + automated diff (03/14/2018 5:34 AM CDT) Only the most recent of 7 results within the time period is included. WBC 4.1 3.5 - 10.5 K/L [facility] RBC 3.90 (L) 3.93 - 5.22 M/L [facility] Hemoglobin 12.9 11.2 - 15.7 GM/DL [facility] Hematocrit 38.9 34.1 - 44.9 % [facility] MCV 99.7 (H) 79.4 - 94.8 fL [facility] MCH 33.1 (H) 25.6 - 32.2 pg [facility] MCHC 33.2 32.2 - 35.5 GM/DL [facility] RDW 12.1 11.7 - 14.4 % [facility] Platelets 163 150 - 450 K/CU MM [facility] MPV 10.0 9.4 - 12.3 fL [facility] nRBC 0 0 - 0 /100 WBC [facility] % Neutros 65 % [facility] % Lymphs 21 % [facility] % Monos 10 % [facility] % Eos 3 % [facility] % Baso 1 % [facility] # Neutros 2.70 1.56 - 6.13 K/L [facility] # Lymphs 0.87 (L) 1.18 - 3.74 K/L [facility] # Monos 0.42 (H) 0.24 - 0.36 K/L [facility] # Eos 0.12 0.04 - 0.36 K/L [facility] # Baso 0.02 0.01 - 0.08 K/L [facility] Immature 0 0 - 1 % [facility] Granulocytes-Relative [facility] Specimen Blood - Arm, Right Performing Organization Address City/State/Zipcode Phone Number [facility] [address] [place] [address] MEDICAL CENTER * Comprehensive metabolic panel (03/14/2018 5:34 AM CDT) Only the most recent of 6 results within the time period is included. Protein, Total 6.3 6.0 - 8.3 gm/dL [facility] Albumin 3.6 3.5 - 5.0 g/dL [facility] Alkaline Phosphatase 137 40 - 150 U/L [facility] Total Bilirubin 0.5 0.2 - 1.2 mg/dL [facility] Sodium 138 136 - 145 meq/L [facility] Potassium 3.6 3.5 - 5.1 meq/L [facility] Chloride 103 98 - 107 meq/L [facility] CO2 28 22 - 29 meq/L [facility] BUN 9 7 - 21 mg/dL [facility] Creatinine 0.60 0.57 - 1.25 mg/dL [facility] Glucose 149 (H) 70 - 105 mg/dL [facility] Calcium 9.0 8.4 - 10.2 mg/dL [facility] AST 37 (H) 5 - 34 U/L [facility] ALT 59 (H) 6 - 55 U/L [facility] EGFR Comment: INSUFFICIENT CLINICAL mL/min/1.73 sq m [facility] DATA TO CALCULATE ESTIMATED [facility] GFR. Specimen Blood - Arm, Right Performing Organization Address City/State/Zipcode Phone Number [facility] [address] [place] [address] [facility] * US liver biopsy (03/13/2018 4:52 PM CDT) Narrative Performed At FINAL REPORT [employer] PROCEDURE: Ultrasound-guided core biopsy of a left hepatic lobe tumor. INDICATION: Liver mass. COMPARISON: CT from 03/10/2018. SEDATION: Intravenous moderate sedation was administered by radiology nursing and monitored under the direction of the undersigned radiologist. The patient's vital signs were monitored throughout the procedure and recorded in the patient's medical record by radiology nursing. Total intraservice time of sedation was 45 minutes. MEDICATIONS: 1.5 mg Versed, 100 mcg fentanyl DESCRIPTION: After obtaining informed written consent, the patient was brought to the procedure room and placed in the supine position. Preliminary ultrasound scan revealed a left hepatic lobe tumor which measured 2.5 cm. This mass was targeted for biopsy. The overlying skin was prepped and draped in the usual, sterile fashion and local 1% lidocaine anesthesia was administered. Under ultrasound guidance, a 17-gauge needle guide was inserted into the tumor. An 18-gauge biopsy was obtained through the needle. However, when the patient breathed, the 17-gauge needle was pushed out of the liver twice. Therefore, the decision was made to introduce the 18-gauge biopsy needle directly into the mass, and two additional core biopsies were obtained. Follow-up exam revealed no evidence for hematoma. There were no immediate complications. IMPRESSION: Successful core biopsy of the left hepatic lobe tumor. Signed: Shiv Flowers MD Report Verified Date/Time:03/13/2018 17:42:44 Reading Location: [facility] [id number] Ultrasound Reading Room Procedure Note Interface, External Ris In - 03/13/2018 5:44 PM CDT FINAL REPORT PROCEDURE: Ultrasound-guided core biopsy of a left hepatic lobe tumor. INDICATION: Liver mass. COMPARISON: CT from 03/10/2018. SEDATION: Intravenous moderate sedation was administered by radiology nursing and monitored under the direction of the undersigned radiologist. The patient's vital signs were monitored throughout the procedure and recorded in the patient's medical record by radiology nursing. Total intraservice time of sedation was 45 minutes. MEDICATIONS: 1.5 mg Versed, 100 mcg fentanyl DESCRIPTION: After obtaining informed written consent, the patient was brought to the procedure room and placed in the supine position. Preliminary ultrasound scan revealed a left hepatic lobe tumor which measured 2.5 cm. This mass was targeted for biopsy. The overlying skin was prepped and draped in the usual, sterile fashion and local 1% lidocaine anesthesia was administered. Under ultrasound guidance, a 17-gauge needle guide was inserted into the tumor. An 18-gauge biopsy was obtained through the needle. However, when the patient breathed, the 17-gauge needle was pushed out of the liver twice. Therefore, the decision was made to introduce the 18-gauge biopsy needle directly into the mass, and two additional core biopsies were obtained. Follow-up exam revealed no evidence for hematoma. There were no immediate complications. IMPRESSION: Successful core biopsy of the left hepatic lobe tumor. Signed: Shiv Flowers MD Report Verified Date/Time: 03/13/2018 17:42:44 Reading Location: [address] Ultrasound Reading Room Performing Organization Address City/[facility] Phone Number [facility] * Gamma Glutamyl Transferase (GGT) (03/13/2018 11:59 AM CDT) Only the most recent of 2 results within the time period is included. GGT 576 (H) 9 - 64 U/L [facility] Specimen Blood - Arm, Right Performing Organization Address City/[facility]/Zipcode Phone Number [facility] [address] [place] [address] [facility] * Bilirubin, direct (03/13/2018 11:59 AM CDT) Bilirubin, Direct 0.3 0.1 - 0.5 mg/dL [facility] Specimen Blood - Arm, Right Performing Organization Address [facility] Centercout Phone Number [facility] [address] [place] [address] [facility] * aPTT (03/13/2018 10:29 AM CDT) PTT 29.9 22.5 - 36.0 seconds [facility] Specimen Blood - Arm, Right Performing Organization Address [facility] Centercode Phone Number [facility] [address] [place] [address] [facility] * Prothrombin time/INR (03/13/2018 10:29 AM CDT) Only the most recent of 2 results within the time period is included. Protime 13.0 11.7 - 14.7 seconds [facility] INR 1.0 <=5.9 [facility] Specimen Blood - Arm, Right Narrative Performed At RECOMMENDED COUMADIN/WARFARIN INR THERAPY RANGES [facility] STANDARD DOSE: 2.0 - 3.0 Includes: PROPHYLAXIS for venous thrombosis, [facility] systemic embolization; TREATMENT for venous thrombosis and/or pulmonary embolus. HIGH RISK: Target INR is 2.5-3.5 for patients with mechanical heart valves. Performing Organization Address [facility] Phone Number [place] [phone] [place] [address] [facility] * Hepatitis C genotype (03/13/2018 8:58 AM CDT) HCV Genotype, LiPA NOT DETECTED [facility] Comment: INCORPORATED Unable to obtain genotype due to low or no viral load, mutations in viral genome at assay priming sites, or presence of inhibitory substance. Viral load of >=300 IU/mL is required for testing. The method used in this test is RT-PCR and reverse hybridization (Line Probe) of the 5' UTR and core region of the HCV genome. The analytical performance characteristics of this assay have been determined by [facility]. The modifications have not been cleared or approved by the FDA. This assay has been validated pursuant to the CLIA regulations and is used for clinical purposes. For additional information, please refer to http://education.[email or web address].com /faq/HCVGenotyping (This link id being provided for informational/ educational purposes only.) Specimen Blood - Arm, Right Narrative Performed At Performing Lab [facility] *[employer] [facility] [address] [place] [address] Nereida Martinez MD Performing Organization Address City/State/Zipcode Phone Number [facility], [address] [facility] [address] * Hepatitis C PCR, Quantitative (03/13/2018 8:58 AM CDT) HCV PCR, Quantitative HCV RNA not detected HCV RNA not detected [facility] Specimen Blood - Arm, Right Narrative Performed At This test uses a Real-Time Polymerase Chain Reaction (RT-PCR) methodology and [facility] was performed using [employer] Ampl[employer]rep/FRANK TaqMan HCV test kit version 2.0 [facility] ([employer] Reportable range for this assay is 15 - 100,000,000 IU per mL (1.18 - 8.00 Log IU/mL). Performing Organization Address [facility] [facility] Centercode Phone Number [place] [phone] [place] [address] * Hepatitis A antibody, IgG (03/12/2018 5:08 PM CDT) Hep A IgG Reactive (A) Nonreactive [facility] Specimen Blood Performing Organization Address [facility]/[place] [address] [facility] * Anti-Mitochondrial Ab, reflex to titer (03/12/2018 5:08 PM CDT) Scan Result [facility] Specimen Blood Narrative Performed At Performing Organization Address City/[facility]ode Phone Number [facility], [address] [facility] [address] * Iron, TIBC, % sat. (without ferritin) (03/12/2018 5:08 PM CDT) Iron 124 40 - 160 ug/dL [facility] TIBC 293 250 - 450 ug/dL [facility] Iron % Saturation 42 20 - 55 % [facility] Specimen Blood Performing Organization Address [facility] [place] [address] [phone] * Hepatitis C antibody (03/12/2018 5:08 PM CDT) Hepatitis C Ab Reactive (A) Nonreactive [facility] Specimen Blood Performing Organization Address [facility] Centercout Phone Number [address] * [id number] (03/12/2018 5:08 PM CDT) A-1 Antitrypsin 193.70Comment: Specimen 90.00 - 200.00 mg/dL [facility] slightly hemolyzed [facility] Specimen Blood Performing Organization Address [facility]out Phone Number [place] [phone] * Ceruloplasmin (03/12/2018 5:08 PM CDT) Ceruloplasmin 31 18 - 53 mg/dL [facility] Comment: [facility] Adults:Males: 18-36 mg/dL Fe males: 18-53 mg/dL Pediatrics: Males (mg/dL)Females (mg/dL) ------ 0-30 Days 8-25 3-28 31 Days-11 Month 15481 5-43 1-3 Years2 54 4-6 Years2 54 7-9 Years2 10-12 [id number] 21-48 13-15 [id number] 21-46 16-18 [id number] 22-50 The pediatric ranges are derived from the following criteria: Emmie SJ, Mike JM, Sayra J et al Pediatric reference ranges for Ajrl-0-Mhdzudtrdpolf and ceruloplasmin. Clin. Chem 1997; 43:S1999 Pediatric Reference Ranges, 2nd., [place] Emmieet al. editors. [employer], [place], [place] 1997. Specimen Blood Narrative Performed At Performing Lab [facility] *[facility] [employer] [facility], [address] [place] [address] Tiffany Schwab MD, PhD Performing Organization Address City/State/Zipcode Phone Number [facility], [address] [place], [place] [facility] [place] [facility] [address] * Alpha fetoprotein (AFP), tumor marker (03/12/2018 5:08 PM CDT) Only the most recent of 2 results within the time period is included. Alpha-Fetoprotein <2.0 <10.0 ng/mL [facility] Specimen Blood Performing Organization Address City/[facility] [place] [address] [phone] * Hepatitis B core antibody, total (03/12/2018 5:08 PM CDT) Hep B Core Total Ab REACTIVE (A) Nonreactive [facility] Specimen Blood Performing Organization Address [facility] [place] [address] [phone] [place] [address] * Hepatitis B surface antibody (03/12/2018 5:08 PM CDT) Hep B S Ab 170.2 (H) <8.0 mIU/mL [facility] Specimen Blood Performing Organization Address [facility] [place] [address] [phone] [place] [address] * Hepatitis B surface antigen (03/12/2018 5:08 PM CDT) hepatitis B Surface Ag NON-REACTIVE Nonreactive [facility] Specimen Blood Performing Organization Address [facility]out Phone Number [address] * Anti-Nuclear Antibody (ANTHONY) (03/12/2018 5:08 PM CDT) ANTHONY Negative Negative [facility] Specimen Blood Narrative Performed At Test performed by IFA method. [facility] Test performed by IFA method. [facility] Performing Organization Address [facility] Phone Number [address] * Immunoglobulin G (IgG) (03/12/2018 5:08 PM CDT) IgG 821 540-1,822 mg/dL [facility] Specimen Blood Performing Organization Address [facility] Phone Number [address] * Ferritin (03/12/2018 5:08 PM CDT) Ferritin 269 5 - 275 ng/mL [facility] Specimen Blood Performing Organization Address [facility] Phone Number [address] * Carcinoembryonic Antigen (CEA) (03/12/2018 5:08 PM CDT) Only the most recent of 2 results within the time period is included. CEA, SERUM 4.1 0.0 - 5.0 ng/mL [facility] Specimen Blood Performing Organization Address [facility] Phone Number [address] * Carbohydrate antigen 19-9 (CA 19-9) (03/11/2018 2:24 PM CDT) CA 19-9 42 (H) <34 U/mL [facility] Comment: [facility]POR[facility] This test was performed using the Siemens (FTRANS) Chemiluminescent method. Values obtained from different assay methods cannot be used interchangeably. CA19-9 levels, regardless of value, should not be interpreted as absolute evidence of the presence or absence of disease. Specimen Blood Narrative Performed At Performing Lab [facility] [employer] [facility] [employer] [facility] [address] [place] [address] Jud Obrien MD, PhD, WILLIE Performing Organization Address City/State/Zipcode Phone Number [facility], [address] [place], [place] [facility] [place] [facility] [address] * TRANSFUSION SERVICE REPORT - SCAN (03/10/2018 5:52 PM CDT) Narrative Performed At * CT abdomen - liver evaluation without/with iv contrast (03/10/2018 8:35 AM CDT) Narrative Performed At FINAL REPORT [employer] TECHNIQUE: CT of the abdomen WITHOUT and WITH intravenous contrast and WITHOUT oral contrast. Dose modulation, iterative reconstruction, and/or weight-based adjustment of the mA/kV was utilized to reduce the radiation dose to as low as reasonably achievable. INDICATION: 62-year-old woman with left hepatic lobe mass. COMPARISON: Abdomen ultrasound 03/09/2018. FINDINGS: LOWER THORAX: Unremarkable. HEPATOBILIARY: Prior cholecystectomy. Moderate intrahepatic biliary ductal dilatation throughout the left lobe to the level of the left hepatic duct. The common hepatic duct appears severely narrowed. Remainder of the common bile duct is normal in caliber. 1.9 x 2.4 cm nonenhancing hypodense structure in the periphery of segment BOBY appears contiguous with on of the dilated intrahepatic bile duct. Superior to this lesion is a 1.9 x 2.1 x 2.3 cm lesion which enhances on arterial phase and exhibits washout and peripheral capsule on subsequent postcontrast series. Patchy arterial enhancement throughout the left hepatic lobe which becomes isodense to liver parenchyma on subsequent postcontrast sequences likely represents perfusional change. SPLEEN: No splenomegaly. PANCREAS: No focal masses or ductal dilatation. ADRENALS: No adrenal nodules. KIDNEYS/URETERS: No hydronephrosis, stones, or solid mass lesions. PERITONEUM/RETROPERITONEUM: No free air or fluid. LYMPH NODES: No lymphadenopathy. VESSELS: Atherosclerotic vascular calcifications in the abdominal aorta and branch vessels without aneurysm. Otherwise, unremarkable. GI TRACT: No distention or wall thickening. BONES AND SOFT TISSUES: Unremarkable. IMPRESSION: Moderate left intrahepatic biliary ductal dilatation with apparent severe narrowing in the region of the common hepatic duct. ERCP may be obtained for further evaluation. Enhancing lesion in segment BOBY. Differential considerations include primary hepatobiliary malignancy such as hepatocellular carcinoma and metastasis. A nonenhancing structure inferior to the aforementioned enhancing lesion is suggestive of a debris-containing cystic lesion. A dilated intrahepatic bile duct appears to communicate with this lesion. Differential considerations include a severely dilated biliary radical, necrotic mass, and abscess. Signed: Aaron Alvarez MD Report Verified Date/Time:03/10/2018 11:47:13 Reading Location: [facility] B1 C013Y CT Body Reading Room Procedure Note Interface, External Ris In - 03/10/2018 11:49 AM CDT FINAL REPORT TECHNIQUE: CT of the abdomen WITHOUT and WITH intravenous contrast and WITHOUT oral contrast. Dose modulation, iterative reconstruction, and/or weight-based adjustment of the mA/kV was utilized to reduce the radiation dose to as low as reasonably achievable. INDICATION: 62-year-old woman with left hepatic lobe mass. COMPARISON: Abdomen ultrasound 03/09/2018. FINDINGS: LOWER THORAX: Unremarkable. HEPATOBILIARY: Prior cholecystectomy. Moderate intrahepatic biliary ductal dilatation throughout the left lobe to the level of the left hepatic duct. The common hepatic duct appears severely narrowed. Remainder of the common bile duct is normal in caliber. 1.9 x 2.4 cm nonenhancing hypodense structure in the periphery of segment BOBY appears contiguous with on of the dilated intrahepatic bile duct. Superior to this lesion is a 1.9 x 2.1 x 2.3 cm lesion which enhances on arterial phase and exhibits washout and peripheral capsule on subsequent postcontrast series. Patchy arterial enhancement throughout the left hepatic lobe which becomes isodense to liver parenchyma on subsequent postcontrast sequences likely represents perfusional change. SPLEEN: No splenomegaly. PANCREAS: No focal masses or ductal dilatation. ADRENALS: No adrenal nodules. KIDNEYS/URETERS: No hydronephrosis, stones, or solid mass lesions. PERITONEUM/RETROPERITONEUM: No free air or fluid. LYMPH NODES: No lymphadenopathy. VESSELS: Atherosclerotic vascular calcifications in the abdominal aorta and branch vessels without aneurysm. Otherwise, unremarkable. GI TRACT: No distention or wall thickening. BONES AND SOFT TISSUES: Unremarkable. IMPRESSION: Moderate left intrahepatic biliary ductal dilatation with apparent severe narrowing in the region of the common hepatic duct. ERCP may be obtained for further evaluation. Enhancing lesion in segment BOBY. Differential considerations include primary hepatobiliary malignancy such as hepatocellular carcinoma and metastasis. A nonenhancing structure inferior to the aforementioned enhancing lesion is suggestive of a debris-containing cystic lesion. A dilated intrahepatic bile duct appears to communicate with this lesion. Differential considerations include a severely dilated biliary radical, necrotic mass, and abscess. Signed: Aaron Alvarez MD Report Verified Date/Time: 03/10/2018 11:47:13 Reading Location: [facility] C013Y CT Body Reading Room Performing Organization Address City/State/Zipcode Phone Number [employer] * POC-Glucose meter (03/09/2018 11:51 PM CDT) POC-Glucose Meter 128 (H)Comment: TESTED AT 70 - 110 mg/dL [facility] [address] [facility] [address] Specimen Blood Performing Organization Address City/[facility]/Zipcode Phone Number [facility] [address] [place] [address] [phone] [place] [address] * REPORT OF PROCEDURE - ENDOSCOPY URL (03/09/2018 1:41 PM CDT) Narrative Performed At * REPORT OF PROCEDURE - ENDOSCOPY URL (03/09/2018 1:39 PM CDT) Narrative Performed At * FL ERCP (03/09/2018 12:10 PM CDT) Narrative Performed At FINAL REPORT [employer] Intraoperative fluoroscopy films performed by the referring physician. Number of images: 7 Fluoroscopic time: 0.6 minutes The films were submitted to PACS postprocedure. The radiologist was not present at the time of examination. An interpretation was not requested. The submitted images are nondiagnostic without real-time visualization. Please refer to the performing physician's dictation for all details regarding the procedure including the submitted images. The radiologist did not perform fluoroscopy. Signed: Noemí Jewell MD Report Verified Date/Time:03/09/2018 15:11:56 Reading Location: [facility] C0[facility] Consult Reading Room Procedure Note Interface, External Ris In - 03/09/2018 3:14 PM CDT FINAL REPORT Intraoperative fluoroscopy films performed by the referring physician. Number of images: 7 Fluoroscopic time: 0.6 minutes The films were submitted to PACS postprocedure. The radiologist was not present at the time of examination. An interpretation was not requested. The submitted images are nondiagnostic without real-time visualization. Please refer to the performing physician's dictation for all details regarding the procedure including the submitted images. The radiologist did not perform fluoroscopy. Signed: Noemí Jewell MD Report Verified Date/Time: 03/09/2018 15:11:56 Reading Location: [facility] C0[facility] Consult Reading Room Performing Organization Address City/[facility]ode Phone Number [facility] * Type and screen, automated (03/09/2018 5:26 AM CDT) ABO/RH AUTOMATED (BEAKER) A POSITIVE [facility] Ab Scrn NEGATIVE [facility] Specimen Blood - Arm, Right Performing Organization Address [facility]out Phone Number [address] * Magnesium (03/09/2018 5:26 AM CDT) Only the most recent of 3 results within the time period is included. Magnesium 2.2 1.6 - 2.6 mg/dL [facility] Specimen Blood - Arm, Right Performing Organization Address [facility] Phone Number [address] * US abdomen limited (03/09/2018 2:50 AM CDT) Narrative Performed At FINAL REPORT [employer] Exam: Limited abdominal ultrasound. Clinical History:Jaundice with biliary dilation on imaging from OSH . Comparison: No prior study for direct comparison. Findings: Sonographic evaluation of the right upper quadrant of the abdomen was performed. Liver: 12.9 cm in length at the right midclavicular line.Normal echogenicity.2.9 x 1.3 x 2.1 cm hypoechoic lesion in the left hepatic lobe without vascular flow.Main portal vein is patent measuring 1.0 in diameter, and demonstrates hepatopetal flow. Biliary tree:Mild intrahepatic biliary ductal dilatation, most pronounced in the left hepatic lobe. Common duct 5 mm. Mildly echogenic focus in the common duct and left intrahepatic bile ducts in the left without vascular flow. Gallbladder: Status post cholecystectomy. Pancreas: Partially visualized, unremarkable. Ascites:Trace perihepatic ascites. Right kidney:11 x 4.1 x 5.1 cm with cortical thickness of 1.1 cm. Normal cortical echogenicity.No mass.No shadowing calculus.No hydronephrosis. IVC/Aorta:Segments partially seen.Unremarkable. Miscellaneous: Small right pleural effusion. Impression: Status post cholecystectomy. 2.9 x 1.3 x 2.1 cm hypoechoic liver lesion.Mild intrahepatic biliary ductal dilatation. Echogenic contents within the common bile duct and left intrahepatic bile ducts of uncertain etiology or significance. A contrast-enhanced CT or MRI/MRCP would be helpful for further evaluation as malignancy cannot be excluded. Small right pleural effusion. Trace perihepatic ascites. Signed: Paula Anaya MD Report Verified Date/Time:03/09/2018 03:51:21 Reading Location: [address] Body Reading Room Procedure Note Interface, External Ris In - 03/09/2018 3:53 AM CDT FINAL REPORT Exam: Limited abdominal ultrasound. Clinical History: Jaundice with biliary dilation on imaging from OSH . Comparison: No prior study for direct comparison. Findings: Sonographic evaluation of the right upper quadrant of the abdomen was performed. Liver: 12.9 cm in length at the right midclavicular line. Normal echogenicity. 2.9 x 1.3 x 2.1 cm hypoechoic lesion in the left hepatic lobe without vascular flow. Main portal vein is patent measuring 1.0 in diameter, and demonstrates hepatopetal flow. Biliary tree: Mild intrahepatic biliary ductal dilatation, most pronounced in the left hepatic lobe. Common duct 5 mm. Mildly echogenic focus in the common duct and left intrahepatic bile ducts in the left without vascular flow. Gallbladder: Status post cholecystectomy. Pancreas: Partially visualized, unremarkable. Ascites: Trace perihepatic ascites. Right kidney: 11 x 4.1 x 5.1 cm with cortical thickness of 1.1 cm. Normal cortical echogenicity. No mass. No shadowing calculus. No hydronephrosis. IVC/Aorta: Segments partially seen. Unremarkable. Miscellaneous: Small right pleural effusion. Impression: Status post cholecystectomy. 2.9 x 1.3 x 2.1 cm hypoechoic liver lesion. Mild intrahepatic biliary ductal dilatation. Echogenic contents within the common bile duct and left intrahepatic bile ducts of uncertain etiology or significance. A contrast-enhanced CT or MRI/MRCP would be helpful for further evaluation as malignancy cannot be excluded. Small right pleural effusion. Trace perihepatic ascites. Signed: Paula Anaya MD Report Verified Date/Time: 03/09/2018 03:51:21 Reading Location: [address] Body Reading Room Performing Organization Address City/State/Zipcode Phone Number [employer] [facility] * Troponin I (03/08/2018 9:57 PM CDT) Troponin I 0.02 0.00 - 0.03 ng/mL [facility] Specimen Blood - Arm, Right Narrative Performed At Troponin I (TnI) levels must be interpreted in the context of the presenting [facility] symptoms and the clinical findings. Elevated TnI levels indicate myocardial [facility] damage, but are not specific for ischemic heart disease. Elevated TnI levels are seen in patients with other cardiac conditions (including myocarditis and congestive heart failure), and slight TnI elevations occur in patients with other conditions, including sepsis, renal failure, acidosis, acute neurological disease, and persistent tachyarrhythmia. Performing Organization Address City/State/Zipcode Phone Number [address] [address] MEDICAL CENTER * Blood culture (03/08/2018 9:57 PM CDT) Only the most recent of 2 results within the time period is included. Result No growth in 5 days [facility] Specimen Blood - Arm, Right Performing Organization Address [facility]/[place] [address] [phone] [address] * Phosphorus (03/08/2018 9:57 PM CDT) Only the most recent of 2 results within the time period is included. Phosphorus 3.5Comment: Specimen slightly 2.3 - 4.7 mg/dL [facility] hemolyzed [facility] Specimen Blood - Arm, Right Performing Organization Address [facility] Phone Number [place] [phone] * XR chest 1 view portable / bedside (03/08/2018 9:18 PM CDT) Narrative Performed At FINAL REPORT [facility] EXAM: Chest one view CLINICAL HISTORY: Tachypnea FINDINGS: Both lungs are hyperinflated. There is no evidence of pulmonary consolidation, pleural effusion, or pneumothorax. The cardiac size is within normal limits. The regional osseous structures are unremarkable. Signed: Matt Mcdonald MD Report Verified Date/Time:03/08/2018 21:35:43 Reading Location: [facility] C0[facility] Consult Reading Room Procedure Note Interface, External Ris In - 03/08/2018 9:37 PM CDT FINAL REPORT EXAM: Chest one view CLINICAL HISTORY: Tachypnea FINDINGS: Both lungs are hyperinflated. There is no evidence of pulmonary consolidation, pleural effusion, or pneumothorax. The cardiac size is within normal limits. The regional osseous structures are unremarkable. Signed: aMtt Mcdonald MD Report Verified Date/Time: 03/08/2018 21:35:43 Reading Location: [facility] C013 Consult Reading Room Performing Organization Address City/[facility] Cent[facility]ode Phone Number [facility] * Lactic acid, venous, whole blood (03/08/2018 9:10 PM CDT) Lactate, Venous 1.1 0.5 - 2.2 mmol/L [facility] Specimen Blood - Arm, Left Narrative Performed At Effective 09/16/2015: Units/Reference Range Change [facility] New: 0.5-2.2 mmol/LPrevious: 5-20 mg/dL [facility] Performing Organization Address [facility] Phone Number [address] [address] [facility] * Lipase (03/08/2018 9:10 PM CDT) Lipase 9 8 - 78 U/L [facility] Specimen Blood - Arm, Left Performing Organization Address [facility] Phone Number [address] [address] [facility] * Blood gas, venous (03/08/2018 9:10 PM CDT) pH, Tani 7.44 (H) 7.32 - 7.42 [facility] pCO2, Tani 29 (L) 41 - 51 mmHg [facility] pO2, Tani 117 (H) 25 - 40 mmHg [facility] O2 Sat, Tani 98.5 (H) 40.0 - 70.0 % [facility] HCO3, Tani 19 (L) 21 - 29 mmol/L [facility] Base Excess, Tani -3.3 (L) -2.0 - 3.0 mmol/L [facility] Patient Temperature 37.0 C [facility] FIO2 21.0 % [facility] Specimen Blood - Arm, Left Performing Organization Address [facility] Phone Number [address] [address] [facility] * ECG 12 lead (03/08/2018 9:04 PM CDT) Narrative Performed At Ventricular Rate 124 BPM [employer] Atrial Rate 124 BPM P-R Interval 134 ms QRS Duration 78 ms Q-T Interval 332 ms QTC Calculation(Bazett) 476 ms P Tutor Key 88 degrees R T[place] 97 degrees T [place] 68 degrees Sinus tachycardia Right atrial enlargement Rightward axis Pulmonary disease pattern Abnormal ECG No previous ECGs available Confirmed by MD LAMAR JOSEPH P ([id number]) on 03/09/2018 6:35:19 PM Procedure Note Interface, External Ris In - 03/09/2018 6:35 PM CDT Ventricular Rate 124 BPM Atrial Rate 124 BPM P-R Interval 134 ms QRS Duration 78 ms Q-T Interval 332 ms QTC Calculation(Bazett) 476 ms P Tutor Key 88 degrees R [place] Key 97 degrees T [place] 68 degrees Sinus tachycardia Right atrial enlargement Rightward axis Pulmonary disease pattern Abnormal ECG No previous ECGs available Confirmed by MD LAMAR JOSEPH P ([id number]) on 03/09/2018 6:35:19 PM Performing Organization Address [facility] Phone Number GE M[facility] * Hepatic function panel (03/08/2018 8:40 AM CDT) Protein, Total 6.8 6.0 - 8.3 gm/dL [facility] Albumin 3.9 3.5 - 5.0 g/dL [facility] Total Bilirubin 2.2 (H) 0.2 - 1.2 mg/dL [facility] Bilirubin, Direct 1.7 (H) 0.1 - 0.5 mg/dL [facility] Alkaline Phosphatase 155 (H) 40 - 150 U/L [facility] AST 1,324 (H) 5 - 34 U/L [facility] ALT 451 (H) 6 - 55 U/L [facility] Specimen Blood - Arm, Right Performing Organization Address City/[facility]/Zipcode Phone Number [facility] [address] [place] [address] MEDICAL CENTER * Basic metabolic panel (03/08/2018 8:40 AM CDT) Sodium 140 136 - 145 meq/L [facility] Potassium 4.5 3.5 - 5.1 meq/L [facility] Chloride 105 98 - 107 meq/L [facility] CO2 28 22 - 29 meq/L [facility] BUN 12 7 - 21 mg/dL [facility] Creatinine 0.64 0.57 - 1.25 mg/dL [facility] Glucose 132 (H) 70 - 105 mg/dL [facility] Calcium 9.2 8.4 - 10.2 mg/dL [facility] EGFR Comment: INSUFFICIENT CLINICAL mL/min/1.73 sq m [facility] DATA TO CALCULATE ESTIMATED [facility] GFR. Specimen Blood - Arm, Right Performing Organization Address City/State/Zipcode Phone Number [facility] [address] [place] [address] [facility] after 07/06/2017 Insurance Payer Benefit Subscriber ID Type Phone Address Plan / Group [facility] [facility] xxxxxxxxxxx PPO SYSTEM PPO/POS Advance Directives For more information, please contact: [facility] [address] [place] [address] Date Inactivated Comments Code Status Date Activated Full Code 03/08/2018 6:41 AM This code status was determined by: Patient
[2018-07-07] MEDS ORDERED: SODIUM CHLORIDE 0.9% 1000ML 1,000 ML IV SCH (19:34)
[2018-07-07] MEDS ORDERED: IPRATROPIUM BROMIDE 0.02% 2.5 ML NEB NEB STA (19:34)
[2018-07-07] MEDS ORDERED: METHYLPREDNISOLONE SOD SUCC 125 MG/2ML VIAL IV ONE (19:45)
[2018-07-07] MEDS ORDERED: ALBUTEROL SULF 0.083% NEB SOLN 3 ML NEB NEB NR (20:00)
[2018-07-07 20:17] LABS: BASOPHILS % 0.2 % (0.0-1.0); EOSINOPHILS % 0.2 % (0.0-6.0); HEMATOCRIT 38.8 % (34.2-44.1); HEMOGLOBIN 13.4 g/dL (12.0-16.0); LYMPHOCYTES # (AUTO) 0.9 (1.0-3.2); LYMPHOCYTES % 8.7 % (18.0-39.1); MEAN CORPUSCULAR HEMOGLOBIN 34.3 pg (28-32); MEAN CORPUSCULAR HGB CONC 34.5 g/dL (31-35); MEAN CORPUSCULAR VOLUME 99.2 fL (81-99); MONOCYTES # (AUTO) 1.1 (0.2-0.8); NEUTROPHILS # (AUTO) 7.9 (2.1-6.9); NEUTROPHILS % 79.7 % (38.7-80.0); PLATELET COUNT 181 x10e3/uL (140-360); RED BLOOD COUNT 3.91 x10e6/uL (3.6-5.1); RED CELL DISTRIBUTION WIDTH 12.4 % (11.7-14.4)
--- NOTE | 2018-07-07 20:21 | NUR ---
RT here for nebulizers. pt awake alert skin w/d resp nonlab, nad noted.
[2018-07-07] MEDS ORDERED: CEFTRIAXONE SOD 1 GM VIAL IV ONE (20:30)
--- NOTE | 2018-07-07 20:43 | Diagnostic Imaging Report ---
EXAMINATION: CHEST 2 VIEWS INDICATION: ^SOB COMPARISON: 03/07/2018 FINDINGS: PA and lateral views TUBES and LINES: None. LUNGS: Hyperinflated lungs. Mild central vascular congestion. Bilateral nipple shadows. PLEURA: No pleural effusion or pneumothorax. HEART AND MEDIASTINUM: The cardiomediastinal silhouette is unremarkable. BONES AND SOFT TISSUES: No acute osseous lesion. Soft tissues are unremarkable. UPPER ABDOMEN: No free air under the diaphragm. IMPRESSION: Hyperinflated lungs, representing COPD. Mild central vascular congestion. No definite focal consolidation. Signed by: Dr. Michael Iqbal MD on 07/07/2018 8:39 PM
[2018-07-07] MEDS ORDERED: HYDROCODONE/APAP 7.5MG-325MG 1 EA TAB PO PRN (20:45)
[2018-07-07] MEDS ORDERED: SODIUM CHLORIDE FLUSH 10 ML SYR INJ PRN (20:45)
[2018-07-07] MEDS ORDERED: DIPHENHYDRAMINE HCL INJ 50 MG/ML VIAL IV PRN (20:45)
[2018-07-07] MEDS ORDERED: IBUPROFEN 200 MG TAB PO PRN (20:45)
[2018-07-07] MEDS ORDERED: ENALAPRILAT IV INJ 1.25 MG/ML VIAL IV PRN (20:45)
[2018-07-07] MEDS ORDERED: ASPIRIN 81 MG CHEW TAB PO ONE (20:45)
[2018-07-07] MEDS ORDERED: ACETAMINOPHEN 325 MG TAB PO PRN (20:45)
[2018-07-07] MEDS ORDERED: MORPHINE SULFATE 2 MG/ML SYR 1ML IV PRN (20:45)
[2018-07-07] MEDS ORDERED: COLACE100 MG PO (20:49)
[2018-07-07] MEDS ORDERED: HYDROCODON-ACE1 EAC9 PO (20:49)
[2018-07-07] MEDS ORDERED: CARISOPRODOL350 MG PO (20:49)
[2018-07-07] MEDS ORDERED: LISINOPRIL10 MG PO (20:49)
[2018-07-07] MEDS ORDERED: ALBUTEROL0.63 MG/3 NEB (20:53)
[2018-07-07 21:00] LABS: ALANINE AMINOTRANSFERASE 20 IU/L (0-55); ALBUMIN 3.7 g/dL (3.5-5.0); ALBUMIN/GLOBULIN RATIO 1.1 (0.8-2.0); ALKALINE PHOSPHATASE 108 IU/L (40-150); ANION GAP 19.7 mmol/L (8-16); BLOOD UREA NITROGEN 16 mg/dL (7-26); BUN/CREATININE RATIO 20 (6-25); CALCIUM 9.9 mg/dL (8.4-10.2); CARBON DIOXIDE 24 mmol/L (22-29); CHLORIDE 97 mmol/L (98-107); CREATINE KINASE 565 IU/L (29-168); CREATININE, SERUM 0.79 mg/dL (0.57-1.11); EST GLOMERULAR FILTRATION RATE > 60 ML/MIN (60-); GLUCOSE 130 mg/dL (74-118); POTASSIUM 4.7 mmol/L (3.5-5.1); SODIUM 136 mmol/L (136-145)
[2018-07-07 21:02] LABS: CLARITY,URINE HAZY (CLEAR); COLOR,URINE YELLOW (YELLOW)
[2018-07-07 21:03] LABS: LEUKOCYTE ESTERASE ,URINE NEGATIVE (NEGATIVE); NITRITE,URINE NEGATIVE (NEGATIVE); PROTEIN,URINE DIPSTICK TRACE (NEGATIVE)
[2018-07-07 21:04] LABS: BACTERIA,URINE RARE /HPF; BILIRUBIN,URINE NEGATIVE (NEGATIVE); EPITHELIAL CELLS,URINE FEW /LPF; KETONES,URINE NEGATIVE (NEGATIVE); RBC,URINE 0-5 /HPF (0-5); URINE UROBILINOGEN 0.2 mg/dL (0.2 - 1); WBC,URINE (MAN) 0-5 /HPF (0-5)
[2018-07-07] MEDS: CEFTRIAXONE SOD 1 GM VIAL IV SCH (21:31)
--- OUTSIDE RECORDS SUMMARY | 2018-07-07 21:40 | XMS REPORT | Clinical Summary ---
Author Author [facility] Address Unknown Phone Unavailable Care Team Providers Care Registered Diet Technician Name Role Phone Asked, No Pcp PCP [...] more information, sophie cadena contact: Juanpablo Parikh [address] [place] [address]
--- OUTSIDE RECORDS SUMMARY | 2018-07-07 21:40 | XMS REPORT | Clinical Summary ---
Author Author GRACE Right RelevanceValor HealthJackedFulton County HospitalHappy Hour [facility]Military [facility] Address Unknown Phone Unavailable Care Team Providers Care Community Organization Worker Name Role Phone Pcp, No PCP Unavailable [...] malnutrition (HCC); Liver masses; Liver mass 03/08/2018 [facility] General Internal Medicine - Encounter 03/14/2018 [...] Routine 03/12/2018 TRANSFERASE (GGT) 5:08 PM CDT [id number]\\, Routine 03/12/2018 SERUM 5:08 PM CDT ANTI-MITOCHONDRIAL [...] ms QTC Calculatio n(Bazett) 476 ms P Hardwick 88 degrees R Hardwick 97 degrees T Hardwick 68 degrees Sinus tachycardi a Right atrial [...] Performed At Performing Lab [facility] *[facility] [address] [place] [address] Nereida Martinez MD Performing Organization Address [facility] [place], [place] Phone Number [facility] [place], [address] [facility] [address] * Hepatitis B e antigen (03/14/2018 6:21 PM CDT) Hep Be Ag (Antigen) NONREACTIVEComment: REFERENCE [facility] RANGES: NONREACTIVE INCORPORATED Specimen Blood - Arm, Right Narrative Performed At Performing Lab [facility] *[facility] [address] [place] [address] Nereida Martinez MD Performing Organization Address City/[facility] Phone Number [facility] [place], [address] [facility] [address] * Tissue Exam (03/14/2018 6:00 PM CDT) Case Report Surgical Pathology [facility] Case: [id number] Authorizing Provider:Leoncio Conner MD Collected: 03/14/2018 1800 Ordering Location: [address] Received: 03/14/2018 0209 Service Pathologist: Agustin Jerome MD Specimen:Biopsy, Liver ADDENDUM The addendum is being issued [facility] to report the results of [facility] immunostain for Cam 5.2 and CD20. The diagnosis remains unchanged. RESULTS Immunostain for Cam 5.2 and CD20 are negative in tumor. (appropriate controls). 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 No viable tumor is seen. Re-biopsy may be considered for a definitive diagnosis. CPT Code(s) 28410 [facility] CLINICAL HISTORY Liver mass [facility] SPECIMEN SOURCE Ultrasound-guided needle [facility] biopsies of left hepatic lobe [facility] tumor GROSS DESCRIPTION Received in formalin labeled [facility] with patient's name and MRN [facility] are multiple tissue cores ranging from 0.2 cm to 1.5 cm in length respectively with an average diameter of 0.1 cm. Entirely submitted in A1. MICROSCOPIC DESCRIPTION Section shows pieces of [facility] necrotic tissue composed of [facility] ghost outlines of atypical cells. There is a single core of viable fibrous tissue with few bile ducts. In addition a tiny piece of benign hepatic parenchyma is present. Specimen Tissue - Biopsy, Liver Performing Organization Address City/State/Zipcode Phone Number [facility] [address] [place] [address] MED[facility] * Hepatitis B PCR, quantitative (03/14/2018 11:02 AM CDT) HBV PCR, Quantitative HBV DNA not detected HBV DNA not detected [facility] Specimen Blood Narrative Performed At This test uses a Real-Time Polymerase Chain Reaction (RT-PCR) methodology and [facility] was performed using FRANK AmpliPrep/FRANK TaqMan HBV Test, v2.0 ([employer] [facility] [employer] Inc[employer] Reportable range for this assay is 20 - 170,000,000 IU per mL (1.30 - 8.23 Log IU/mL). Performing Organization Address City/State/Zipcode Phone Number [facility] [address] [place] [address] MEDICAL CENTER * CBC with platelet count + automated diff (03/14/2018 5:34 AM CDT) Only the most recent of 7 results within the time period is included. WBC 4.1 3.5 - 10.5 K/L [facility] RBC 3.90 (L) 3.93 - 5.22 M/L [facility] Hemoglobin 12.9 11.2 - 15.7 GM/DL [facility] Hematocrit 38.9 34.1 - 44.9 % [facility] MCV 99.7 (H) 79.4 - 94.8 fL [facility] MCH 33.1 (H) 25.6 - 32.2 pg [facility] MCHC 33.2 32.2 - 35.5 GM/DL [facility] RDW 12.1 11.7 - 14.4 % [facility] Platelets 163 150 - 450 K/CU MM [facility] MPV 10.0 9.4 - 12.3 fL [facility] nRBC 0 0 - 0 /100 WBC [facility] % Neutros 65 % [facility] % Lymphs 21 % [facility] % Monos 10 % [facility] % Eos 3 % [facility] % Baso 1 % [facility] # Neutros 2.70 1.56 - 6.13 K/L [facility] # Lymphs 0.87 (L) 1.18 - 3.74 K/L [facility] # Monos 0.42 (H) 0.24 - 0.36 K/L [facility] # Eos 0.12 0.04 - 0.36 K/L [facility] # Baso 0.02 0.01 - 0.08 K/L [facility] Immature 0 0 - 1 % [facility] Granulocytes-Relative [facility] Specimen Blood - Arm, Right Performing Organization Address City/State/Zipcode Phone Number [facility] [address] [place] [address] MEDICAL CENTER * Comprehensive metabolic panel (03/14/2018 5:34 AM CDT) Only the most recent of 6 results within the time period is included. Protein, Total 6.3 6.0 - 8.3 gm/dL [facility] Albumin 3.6 3.5 - 5.0 g/dL [facility] Alkaline Phosphatase 137 40 - 150 U/L [facility] Total Bilirubin 0.5 0.2 - 1.2 mg/dL [facility] Sodium 138 136 - 145 meq/L [facility] Potassium 3.6 3.5 - 5.1 meq/L [facility] Chloride 103 98 - 107 meq/L [facility] CO2 28 22 - 29 meq/L [facility] BUN 9 7 - 21 mg/dL [facility] Creatinine 0.60 0.57 - 1.25 mg/dL [facility] Glucose 149 (H) 70 - 105 mg/dL [facility] Calcium 9.0 8.4 - 10.2 mg/dL [facility] AST 37 (H) 5 - 34 U/L [facility] ALT 59 (H) 6 - 55 U/L [facility] EGFR Comment: INSUFFICIENT CLINICAL mL/min/1.73 sq m [facility] DATA TO CALCULATE ESTIMATED [facility] GFR. Specimen Blood - Arm, Right Performing Organization Address City/State/Zipcode Phone Number [facility] [address] [place] [address] [facility] * US liver biopsy (03/13/2018 4:52 PM CDT) Narrative Performed At FINAL REPORT [facility] PROCEDURE: Ultrasound-guided core biopsy of a left [...] MD Report Verified Date/Time:03/13/2018 17:42:44 Reading Location: [facility] [id number] Ultrasound Reading Room Procedure Note Interface, [...] Report Verified Date/Time: 03/13/2018 17:42:44 Reading Location: [address] Ultrasound Reading Room Performing Organization Address City/[facility] Phone Number [facility] * Gamma Glutamyl Transferase (GGT) (03/13/2018 11:59 AM CDT) Only the most recent of 2 results within the time period is included. GGT 576 (H) 9 - 64 U/L [facility] Specimen Blood - Arm, Right Performing Organization Address City/[facility]/Zipcode Phone Number [facility] [address] [place] [address] [facility] * Bilirubin, direct (03/13/2018 11:59 AM CDT) Bilirubin, Direct 0.3 0.1 - 0.5 mg/dL [facility] Specimen Blood - Arm, Right Performing Organization Address [facility] Phone Number [facility] [address] [place] [address] [facility] * aPTT (03/13/2018 10:29 AM CDT) PTT 29.9 22.5 - 36.0 seconds [facility] Specimen Blood - Arm, Right Performing Organization Address [facility] Phone Number [facility] [address] [place] [address] [facility] * Prothrombin time/INR (03/13/2018 10:29 AM CDT) Only the most recent of 2 results within the time period is included. Protime 13.0 11.7 - 14.7 seconds [facility] INR 1.0 <=5.9 [facility] Specimen Blood - Arm, Right Narrative Performed At RECOMMENDED COUMADIN/WARFARIN INR THERAPY RANGES [facility] STANDARD DOSE: 2.0 - 3.0 Includes: PROPHYLAXIS for venous thrombosis, [facility] systemic embolization; TREATMENT for venous thrombosis and/or pulmonary embolus. HIGH RISK: Target INR is 2.5-3.5 for patients with mechanical heart valves. Performing Organization Address [facility] [place], [place] Phone Number [place] [phone] [place] [address] [facility] * Hepatitis C genotype (03/13/2018 8:58 [...] of this assay have been determined by [facility]. The modifications have not been cleared or approved by the FDA. This assay has been validated pursuant to the CLIA regulations and is used for clinical purposes. For additional information, please refer to http://education.[employer].com /faq/HCVGenotyping (This link id being provided for informational/ educational purposes only.) Specimen Blood - Arm, Right Narrative Performed At Performing Lab [employer] [facility] *[facility] [employer] [facility] [address] [place] [address] Nereida Martinez MD Performing Organization Address City/State/Zipcode Phone Number [facility], [address] [facility] [address] * Hepatitis C PCR, Quantitative (03/13/2018 8:58 AM CDT) HCV PCR, Quantitative HCV RNA not detected HCV RNA not detected [facility] Specimen Blood - Arm, Right Narrative Performed At This test uses a Real-Time Polymerase Chain Reaction (RT-PCR) methodology and [facility] was performed using FRANK Ampliprep/FRANK TaqMan HCV test kit version 2.0 [facility] ([employer] Reportable range for this assay is 15 - 100,000,000 IU per mL (1.18 - 8.00 Log IU/mL). Performing Organization Address [facility] Phone Number [place] [phone] [place] [address] * Hepatitis A antibody, IgG (03/12/2018 5:08 PM CDT) Hep A IgG Reactive (A) Nonreactive [facility] Specimen Blood Performing Organization Address [facility]/[place] [address] [facility] * Anti-Mitochondrial Ab, reflex to titer (03/12/2018 5:08 PM CDT) Scan Result [facility] Specimen Blood Narrative Performed At Performing Organization Address City/[facility] Phone Number [employer] [facility] [address] [facility] [address] * Iron, TIBC, % sat. (without ferritin) (03/12/2018 5:08 PM CDT) Iron 124 40 - 160 ug/dL [facility] TIBC 293 250 - 450 ug/dL [facility] Iron % Saturation 42 20 - 55 % [facility] Specimen Blood Performing Organization Address [facility] [place] [address] [phone] [address] * Hepatitis C antibody (03/12/2018 5:08 PM CDT) Hepatitis C Ab Reactive (A) Nonreactive [facility] Specimen Blood Performing Organization Address [facility] Phone Number [address] * Qytun-8-pgvfjxuawdv (03/12/2018 5:08 PM CDT) A-1 Antitrypsin 193.70Comment: Specimen 90.00 - 200.00 mg/dL [facility] slightly hemolyzed [facility] Specimen Blood Performing Organization Address [facility] Phone Number [place] [phone] * Ceruloplasmin (03/12/2018 5:08 PM CDT) Ceruloplasmin 31 18 - 53 mg/dL [facility] Comment: INCORPORATED Adults:Males: 18-36 mg/dL Fe males: 18-53 mg/dL Pediatrics: Males (mg/dL)Females (mg/dL) ------ 0-30 Days 8-25 3-28 31 Days-11 Month 15481 5-43 1-3 Years2 54 4-6 Years2 54 7-9 Years2 10-12 [id number] 21-48 13-15 Hjnan95-82 21-46 16-18 Ebgil80-34 22-50 The pediatric ranges are derived from the following criteria: Emmie SJ, Mike JM, Sayra J et al Pediatric reference ranges for Lsby-1-Cpysgvvgafzqg and ceruloplasmin. Clin. Chem 1997; 43:S1999 Pediatric Reference Ranges, 2nd., [place] Emmieet al. editors. [employer], [place], [place] 1997. Specimen Blood Narrative Performed At Performing Lab [facility] *[facility], [address] [place] [address] Tiffany Schwab MD, PhD Performing Organization Address City/State/Zipcode Phone Number [facility], [address] [place], [place] INCORPOR[facility] [place] [facility] [address] * Alpha fetoprotein (AFP), tumor marker (03/12/2018 5:08 PM CDT) Only the most recent of 2 results within the time period is included. Alpha-Fetoprotein <2.0 <10.0 ng/mL [facility] Specimen Blood Performing Organization Address City/[facility] [place] [address] [phone] [address] * Hepatitis B core antibody, total (03/12/2018 5:08 PM CDT) Hep B Core Total Ab REACTIVE (A) Nonreactive [facility] Specimen Blood Performing Organization Address [facility] [place] [address] [phone] [place] [address] * Hepatitis B surface antibody (03/12/2018 5:08 PM CDT) Hep B S Ab 170.2 (H) <8.0 mIU/mL [facility] Specimen Blood Performing Organization Address [facility] [place] [address] [phone] [place] [address] * Hepatitis B surface antigen (03/12/2018 5:08 PM CDT) hepatitis B Surface Ag NON-REACTIVE Nonreactive [facility] Specimen Blood Performing Organization Address [facility] Phone Number [address] * Anti-Nuclear Antibody (ANTHONY) (03/12/2018 5:08 PM CDT) ANTHONY Negative Negative [facility] Specimen Blood Narrative Performed At Test performed by IFA method. [facility] Test performed by IFA method. [facility] Performing Organization Address [facility] [place] [place] Phone Number [address] * Immunoglobulin G (IgG) (03/12/2018 5:08 PM CDT) IgG 821 540-1,822 mg/dL [facility] Specimen Blood Performing Organization Address [facility] [place] [place] Phone Number [address] * Ferritin (03/12/2018 5:08 PM CDT) Ferritin 269 5 - 275 ng/mL [facility] Specimen Blood Performing Organization Address [facility] [place] [place] Phone Number [address] * Carcinoembryonic Antigen (CEA) (03/12/2018 5:08 PM CDT) Only the most recent of 2 results within the time period is included. CEA, SERUM 4.1 0.0 - 5.0 ng/mL [facility] Specimen Blood Performing Organization Address [facility] [place], [place] Phone Number [address] * Carbohydrate antigen 19-9 (CA 19-9) (03/11/2018 2:24 PM CDT) CA 19-9 42 (H) <34 U/mL [facility] Comment: INCORPORATED This test was performed using the Siemens (Nibu) Chemiluminescent method. Values obtained from different assay methods cannot be used interchangeably. CA19-9 levels, regardless of value, should not be interpreted as absolute evidence of the presence or absence of disease. Specimen Blood Narrative Performed At Performing Lab [facility] [employer] [facility] [address] [place] [address] Jud Obrien MD, PhD, WILLIE Performing Organization Address City/State/Zipcode Phone Number [employer] [facility], [address] [place], [place] INCORPOR[facility] [facility] [address] * TRANSFUSION SERVICE REPORT - SCAN (03/10/2018 5:52 PM CDT) Narrative Performed At * CT abdomen - liver evaluation without/with iv contrast (03/10/2018 8:35 AM CDT) Narrative Performed At FINAL REPORT [facility] TECHNIQUE: CT of the abdomen WITHOUT and [...] MD Report Verified Date/Time:03/10/2018 11:47:13 Reading Location: [facility] B1 C013Y CT Body Reading Room Procedure [...] Report Verified Date/Time: 03/10/2018 11:47:13 Reading Location: [facility] C013Y CT Body Reading Room Performing Organization Address City/State/Zipcode Phone Number [facility] * POC-Glucose meter (03/09/2018 11:51 PM CDT) POC-Glucose Meter 128 (H)Comment: TESTED AT 70 - 110 mg/dL [facility] [address] [facility] [address] Specimen Blood Performing Organization Address City/[facility]/Zipcode Phone Number [facility] [address] [place] [address] [phone] [place] [address] * REPORT OF PROCEDURE - ENDOSCOPY URL (03/09/2018 1:41 PM CDT) Narrative Performed At * REPORT OF PROCEDURE - ENDOSCOPY URL (03/09/2018 1:39 PM CDT) Narrative Performed At * FL ERCP (03/09/2018 12:10 PM CDT) Narrative Performed At FINAL REPORT [employer] Intraoperative fluoroscopy films performed by the referring [...] MD Report Verified Date/Time:03/09/2018 15:11:56 Reading Location: [facility] Consult Reading Room Procedure Note Interface, External [...] Report Verified Date/Time: 03/09/2018 15:11:56 Reading Location: [facility] Consult Reading Room Performing Organization Address City/[facility] Phone Number [facility] * Type and screen, automated (03/09/2018 5:26 AM CDT) ABO/RH AUTOMATED (BEAKER) A POSITIVE [facility] Ab Scrn NEGATIVE [facility] Specimen Blood - Arm, Right Performing Organization Address [facility] Phone Number [address] * Magnesium (03/09/2018 5:26 AM CDT) Only the most recent of 3 results within the time period is included. Magnesium 2.2 1.6 - 2.6 mg/dL [facility] Specimen Blood - Arm, Right Performing Organization Address [facility] Phone Number [address] * US abdomen limited (03/09/2018 2:50 [...] MD Report Verified Date/Time:03/09/2018 03:51:21 Reading Location: [address] Body Reading Room Procedure Note [...] Report Verified Date/Time: 03/09/2018 03:51:21 Reading Location: [address] Body Reading Room Performing Organization Address City/State/Zipcode Phone Number [facility] * Troponin I (03/08/2018 9:57 PM CDT) Troponin I 0.02 0.00 - 0.03 ng/mL [facility] Specimen Blood - Arm, Right Narrative Performed At Troponin I (TnI) levels must be interpreted in the context of the presenting [facility] symptoms and the clinical findings. Elevated TnI levels indicate myocardial [facility] damage, but are not specific for ischemic heart disease. Elevated TnI levels are seen in patients with other cardiac conditions (including myocarditis and congestive heart failure), and slight TnI elevations occur in patients with other conditions, including sepsis, renal failure, acidosis, acute neurological disease, and persistent tachyarrhythmia. Performing Organization Address City/State/Zipcode Phone Number [address] [address] MEDICAL CENTER * Blood culture (03/08/2018 9:57 PM CDT) Only the most recent of 2 results within the time period is included. Result No growth in 5 days [facility] Specimen Blood - Arm, Right Performing Organization Address [facility]/[place] [address] [phone] [address] * Phosphorus (03/08/2018 9:57 PM CDT) Only the most recent of 2 results within the time period is included. Phosphorus 3.5Comment: Specimen slightly 2.3 - 4.7 mg/dL [facility] hemolyzed [facility] Specimen Blood - Arm, Right Performing Organization Address [facility] Phone Number [place] [phone] * XR chest 1 view portable / bedside (03/08/2018 9:18 PM CDT) Narrative Performed At FINAL REPORT [facility] EXAM: Chest one view CLINICAL HISTORY: Tachypnea FINDINGS: Both lungs are hyperinflated. There is no evidence of pulmonary consolidation, pleural effusion, or pneumothorax. The cardiac size is within normal limits. The regional osseous structures are unremarkable. Signed: aMtt Mcdonald MD Report Verified Date/Time:03/08/2018 21:35:43 Reading Location: [facility] Consult Reading Room Procedure Note Interface, External Ris In - 03/08/2018 9:37 PM CDT FINAL REPORT EXAM: Chest one view CLINICAL HISTORY: Tachypnea FINDINGS: Both lungs are hyperinflated. There is no evidence of pulmonary consolidation, pleural effusion, or pneumothorax. The cardiac size is within normal limits. The regional osseous structures are unremarkable. Signed: Matt Mcdonald MD Report Verified Date/Time: 03/08/2018 21:35:43 Reading Location: [facility] C013 Consult Reading Room Performing Organization Address City/[facility] Phone Number [facility] * Lactic acid, venous, whole blood (03/08/2018 9:10 PM CDT) Lactate, Venous 1.1 0.5 - 2.2 mmol/L [facility] Specimen Blood - Arm, Left Narrative Performed At Effective 09/16/2015: Units/Reference Range Change [facility] New: 0.5-2.2 mmol/LPrevious: 5-20 mg/dL [facility] Performing Organization Address [facility] Phone Number [address] [address] [facility] * Lipase (03/08/2018 9:10 PM CDT) Lipase 9 8 - 78 U/L [facility] Specimen Blood - Arm, Left Performing Organization Address [facility] [place] Phone Number [address] [address] [facility] * Blood gas, venous (03/08/2018 9:10 PM CDT) pH, Tani 7.44 (H) 7.32 - 7.42 [facility] pCO2, Tani 29 (L) 41 - 51 mmHg [facility] pO2, Tani 117 (H) 25 - 40 mmHg [facility] O2 Sat, Tani 98.5 (H) 40.0 - 70.0 % [facility] HCO3, Tani 19 (L) 21 - 29 mmol/L [facility] Base Excess, Tani -3.3 (L) -2.0 - 3.0 mmol/L [facility] Patient Temperature 37.0 C [facility] FIO2 21.0 % [facility] Specimen Blood - Arm, Left Performing Organization Address [facility] Phone Number [address] [address] [facility] * ECG 12 lead (03/08/2018 9:04 PM CDT) Narrative Performed At Ventricular Rate 124 BPM GE MUSE Atrial Rate 124 BPM P-R Interval 134 ms QRS Duration 78 ms Q-T Interval 332 ms QTC Calculation(Bazett) 476 ms P Hardwick 88 degrees R Hardwick 97 degrees T Hardwick 68 degrees Sinus tachycardia Right atrial enlargement Rightward axis Pulmonary disease pattern Abnormal ECG No previous ECGs available Confirmed by MD LAMAR JOSEPH P ([id number]) on 03/09/2018 6:35:19 PM Procedure Note Interface, External Ris In - 03/09/2018 6:35 PM CDT Ventricular Rate 124 BPM Atrial Rate 124 BPM P-R Interval 134 ms QRS Duration 78 ms Q-T Interval 332 ms QTC Calculation(Bazett) 476 ms P Hardwick 88 degrees R Hardwick 97 degrees T Hardwick 68 degrees Sinus tachycardia Right atrial enlargement Rightward axis Pulmonary disease pattern Abnormal ECG No previous ECGs available Confirmed by MD LAMAR JOSEPH P ([id number]) on 03/09/2018 6:35:19 PM Performing Organization Address [facility] Phone Number GE MUSE * Hepatic function panel (03/08/2018 8:40 AM CDT) Protein, Total 6.8 6.0 - 8.3 gm/dL [facility] Albumin 3.9 3.5 - 5.0 g/dL [facility] Total Bilirubin 2.2 (H) 0.2 - 1.2 mg/dL [facility] Bilirubin, Direct 1.7 (H) 0.1 - 0.5 mg/dL [facility] Alkaline Phosphatase 155 (H) 40 - 150 U/L [facility] AST 1,324 (H) 5 - 34 U/L [facility] ALT 451 (H) 6 - 55 U/L [facility] Specimen Blood - Arm, Right Performing Organization Address City/[facility]/Zipcode Phone Number [facility] [address] [place] [address] [facility] * Basic metabolic panel (03/08/2018 8:40 AM CDT) Sodium 140 136 - 145 meq/L [facility] Potassium 4.5 3.5 - 5.1 meq/L [facility] Chloride 105 98 - 107 meq/L [facility] CO2 28 22 - 29 meq/L [facility] BUN 12 7 - 21 mg/dL [facility] Creatinine 0.64 0.57 - 1.25 mg/dL [facility] Glucose 132 (H) 70 - 105 mg/dL [facility] Calcium 9.2 8.4 - 10.2 mg/dL [facility] EGFR Comment: INSUFFICIENT CLINICAL mL/min/1.73 sq m [facility] DATA TO CALCULATE ESTIMATED [facility] GFR. Specimen Blood - Arm, Right Performing Organization Address City/State/Zipcode Phone Number [facility] [address] [place] [address] [facility] after 07/06/2017 Insurance Payer Benefit Subscriber ID Type Phone Address Plan / Group [facility] - [facility] xxxxxxxxxxx PPO SYSTEM PPO/POS Advance Directives For more information, please contact: [facility] [address] [place] [address] Date Inactivated Comments Code Status Date Activated Full Code 03/08/2018 6:41 AM This code status was determined by: Patient
--- NOTE | 2018-07-07 21:45 | NUR ---
SPO2 86-88%, PT DENIES ANY WORSENING OF SX, PLACED 2L NC ON PT, SPO2 UP TO 98%. DENIES ANY CHANGE AFTER O2 WELL, AWAKE ALERT SKIN W/D RESP NONLAB. NAD NOTED. RESTING IN POC
[2018-07-07 22:08] VITALS: BP 116/60
[2018-07-07 22:13] VITALS: BP 116/60
[2018-07-07 22:16] VITALS: BP 116/60
[2018-07-08] MEDS: ALBUTEROL/IPRATROPIUM 3 ML NEB NEB SCH ×6 (04:05→23:45)
[2018-07-08 04:15] VITALS: BP 144/70
[2018-07-08 05:36] LABS: BASOPHILS % 0.2 % (0.0-1.0); HEMOGLOBIN 12.4 g/dL (12.0-16.0); LYMPHOCYTES # (AUTO) 0.3 (1.0-3.2); LYMPHOCYTES % 4.1 % (18.0-39.1); MEAN CORPUSCULAR HEMOGLOBIN 33.7 pg (28-32); MEAN CORPUSCULAR HGB CONC 32.6 g/dL (31-35); MEAN CORPUSCULAR VOLUME 103.3 fL (81-99); MONOCYTES # (AUTO) 0.1 (0.2-0.8); MONOCYTES % 2.2 % (4.4-11.3); NEUTROPHILS # (AUTO) 5.6 (2.1-6.9); NEUTROPHILS % 93.2 % (38.7-80.0); PLATELET COUNT 127 x10e3/uL (140-360); RED BLOOD COUNT 3.68 x10e6/uL (3.6-5.1); RED CELL DISTRIBUTION WIDTH 11.9 % (11.7-14.4)
[2018-07-08] MEDS: DOCUSATE SODIUM 100 MG CAP PO SCH ×2 (06:00→08:29)
[2018-07-08 06:13] LABS: ANION GAP 12.7 mmol/L (8-16); BLOOD UREA NITROGEN 13 mg/dL (7-26); BUN/CREATININE RATIO 21 (6-25); CALCIUM 9.5 mg/dL (8.4-10.2); CARBON DIOXIDE 25 mmol/L (22-29); CHLORIDE 104 mmol/L (98-107); CREATININE, SERUM 0.63 mg/dL (0.57-1.11); EST GLOMERULAR FILTRATION RATE > 60 ML/MIN (60-); GLUCOSE 151 mg/dL (74-118); POTASSIUM 4.7 mmol/L (3.5-5.1); SODIUM 137 mmol/L (136-145)
[2018-07-08 06:45] LABS: CREATINE KINASE MB 3.4 ng/mL (0-5.0)
[2018-07-08] MEDS ORDERED: SODIUM CHLORIDE 0.9% 1000ML 1,000 ML IV SCH (07:15)
[2018-07-08] MEDS ORDERED: DOCUSATE SODIUM 100 MG CAP PO ONE (07:45)
[2018-07-08] MEDS ORDERED: LISINOPRIL 10 MG TAB PO ONE (07:45)
[2018-07-08] MEDS ORDERED: HYDRALAZINE HCL 20 MG/ML VIAL IV PRN (07:45)
[2018-07-08] MEDS ORDERED: ACETAMINOPHEN 325 MG TAB PO PRN (07:45)
[2018-07-08] MEDS ORDERED: GABAPENTIN 100 MG CAP PO SCH (07:45)
[2018-07-08 08:17] VITALS: BP 100/58
[2018-07-08] MEDS: GUAIFENESIN 600MG/DEXTROMETHORPHAN 30MG TABSR PO SCH ×2 (08:28→16:11)
[2018-07-08] MEDS: FAMOTIDINE 20 MG TAB PO SCH ×2 (08:28→16:11)
[2018-07-08 08:30] VITALS: BP 100/58
[2018-07-08] MEDS: NICOTINE 14 MG/EA PATCH TOP SCH (08:34)
[2018-07-08] MEDS: METHYLPREDNISOLONE SOD SUCC 125 MG/2ML VIAL IV SCH ×3 (08:34→22:00)
[2018-07-08 08:47] LABS: BAND NEUTROPHILS % (MANUAL) 12 %; LYMPHOCYTES % (MANUAL) 7 % (19-48); MONOCYTES % (MANUAL) 2 % (3.4-9.0); NEUTROPHILS % (MANUAL) 79 % (40-74); PLATELET ESTIMATE ADEQUATE; PLATELET MORPHOLOGY COMMENT NORMAL; RBC MORPHOLOGY COMMENT NORMAL
[2018-07-08] MEDS: HYDROCODONE/APAP 10MG-325MG TAB PO PRN ×2 (08:51→18:20)
[2018-07-08] MEDS ORDERED: NICOTINE 7 MG PATCH TOP SCH (09:00)
[2018-07-08 12:01] LABS: CREATINE KINASE 611 IU/L (29-168)
[2018-07-08 12:47] VITALS: BP 153/72
[2018-07-08] MEDS: CARISOPRODOL 350 MG TAB PO PRN ×2 (13:24→20:37)
[2018-07-08 15:51] VITALS: BP 119/65
[2018-07-08] MEDS ORDERED: FAMOTIDINE 20 MG TAB PO SCH (16:30)
[2018-07-08] MEDS: GABAPENTIN 100 MG CAP PO SCH ×2 (16:48→20:36)
--- NOTE | 2018-07-08 17:04 | Consultation ---
DATE OF CONSULTATION: REASON FOR CONSULTATION: COPD and shortness of breath. HISTORY OF PRESENT ILLNESS: Ms. Billy is a 62-year-old female known to me from previous admission here. She was admitted in November of 2017 under my service with choledocholithiasis and underwent ERCP. She has been a smoker, was told to follow up with me; however, she was not able to follow up because of her insurance reason. She denies any complaints of chest pain, nausea, or vomiting. She came in last night with a complaint of shortness of breath, wheezing, cough, and fever. She denies any complaints of nausea, vomiting, or diarrhea. REVIEW OF SYSTEMS: GENERAL: Without any fevers or chills. HEAD: Denies any head trauma. ENT: Denies any earaches. CVS: Denies any chest pain. RESPIRATORY: Shortness of breath. The rest of review of systems is negative except as in HPI. PAST MEDICAL HISTORY: Hepatitis C, COPD, degenerative joint disease. PAST SURGICAL HISTORY: Lap mary, wrist repair, hip surgery. FAMILY/SOCIAL HISTORY: She quit smoking 3 weeks ago. She has been a smoker for 45 plus years. PHYSICAL EXAMINATION: VITAL SIGNS: Temperature 96.2, pulse of 90, blood pressure 144/70, respiratory rate of 18. GENERAL: She is elderly aged female, not in any distress. HEENT: Head is normocephalic, atraumatic. NECK: Supple. CHEST: Wheezing bilaterally. HEART: S1 and S2 audible. ABDOMEN: Soft, nontender, nondistended. EXTREMITIES: No clubbing, cyanosis, or pedal edema. NEUROLOGIC: Awake, alert, oriented. No focal neurologic deficits. LABORATORY DATA: White count of 6000, hemoglobin 12.4, platelets 127. Chemistries within normal limits. Chest x-ray is not showing any evidence of pneumonia. ASSESSMENT/PLAN: Ms. Billy is a 62-year-old female with acute exacerbation of chronic obstructive pulmonary disease. RECOMMENDATIONS: Continue the patient on Rocephin and azithromycin as ordered by you, nebulizer treatment, IV steroids as ordered by you, continue oxygen as needed, to keep the O2 sats more than or equal to 92%. Counseled her against smoking and she is trying to quit. Thank you for this consult. MD DOM Bowling/LISA /[id number]
--- NOTE | 2018-07-08 18:10 | NUR ---
Received patient from OBS unit. She is awake and alert in NAD. Pt oriented to new room. Call paulson within reach.
--- NOTE | 2018-07-08 19:44 | NUR ---
RECEIVED PT IN BED AOX3 .WHEEZING NOTED ON AUSCULTATION,PT C/O PAIN .PT HAS DIFFICULTY BREATHING .CALL LIGHT WITH IN REACH .CONTINUE TO MONITOR
[2018-07-08 20:15] VITALS: BP 140/66
[2018-07-08] MEDS: CEFTRIAXONE SOD 1 GM VIAL IV SCH (20:45)
[2018-07-08] MEDS ORDERED: SODIUM CHLORIDE 0.9% 50ML 50 ML ONE (20:49)
[2018-07-08] MEDS: ZOLPIDEM TARTRATE 5 MG TAB PO PRN (22:30)
[2018-07-09] VITALS (9 sets, daily range): BP systolic 103–192; BP diastolic 54–80
[2018-07-09] MEDS: ALBUTEROL/IPRATROPIUM 3 ML NEB NEB SCH ×6 (04:00→23:10)
[2018-07-09 04:05] LABS: BASOPHILS % 0.2 % (0.0-1.0); HEMATOCRIT 38.8 % (34.2-44.1); HEMOGLOBIN 12.8 g/dL (12.0-16.0); LYMPHOCYTES # (AUTO) 0.2 (1.0-3.2); LYMPHOCYTES % 4.1 % (18.0-39.1); MEAN CORPUSCULAR HEMOGLOBIN 34.3 pg (28-32); MONOCYTES # (AUTO) 0.3 (0.2-0.8); MONOCYTES % 5.6 % (4.4-11.3); NEUTROPHILS # (AUTO) 5.3 (2.1-6.9); NEUTROPHILS % 89.8 % (38.7-80.0); PLATELET COUNT 108 x10e3/uL (140-360); RED BLOOD COUNT 3.73 x10e6/uL (3.6-5.1); RED CELL DISTRIBUTION WIDTH 11.9 % (11.7-14.4)
[2018-07-09 04:23] LABS: BLOOD UREA NITROGEN 17 mg/dL (7-26); BUN/CREATININE RATIO 31 (6-25); CALCIUM 9.5 mg/dL (8.4-10.2); CARBON DIOXIDE 25 mmol/L (22-29); CHLORIDE 105 mmol/L (98-107); CREATINE KINASE 251 IU/L (29-168); CREATININE, SERUM 0.55 mg/dL (0.57-1.11); EST GLOMERULAR FILTRATION RATE > 60 ML/MIN (60-); GLUCOSE 148 mg/dL (74-118); SODIUM 137 mmol/L (136-145)
[2018-07-09] MEDS: METHYLPREDNISOLONE SOD SUCC 125 MG/2ML VIAL IV SCH ×3 (05:24→22:00)
[2018-07-09] MEDS: LISINOPRIL 10 MG TAB PO SCH ×2 (06:43→09:55)
[2018-07-09 06:48] LABS: LYMPHOCYTES % (MANUAL) 4 % (19-48); MONOCYTES % (MANUAL) 3 % (3.4-9.0); NEUTROPHILS % (MANUAL) 93 % (40-74)
[2018-07-09 06:50] LABS: PLATELET ESTIMATE SLIGHTLY DECREASED; PLATELET MORPHOLOGY COMMENT NORMAL; RBC MORPHOLOGY COMMENT NORMAL
--- NOTE | 2018-07-09 07:49 | NUR ---
PT C/O PAIN AND GIVEN ORDERED PAIN MEDICATION .PT IS STILL CONGESTED .CALL ORTIZ WITH IN REACH AND GIVEN BEDSIDE REPORT
[2018-07-09] MEDS: CARISOPRODOL 350 MG TAB PO PRN (09:52)
[2018-07-09] MEDS: DOCUSATE SODIUM 100 MG CAP PO SCH (09:53)
[2018-07-09] MEDS: AZITHROMYCIN 500MG/NS 250 ML 250 ML IV SCH (09:53)
[2018-07-09] MEDS: FAMOTIDINE 20 MG TAB PO SCH ×2 (09:53→17:32)
[2018-07-09] MEDS: GABAPENTIN 100 MG CAP PO SCH ×2 (09:54→21:55)
[2018-07-09] MEDS: GUAIFENESIN 600MG/DEXTROMETHORPHAN 30MG TABSR PO SCH ×2 (09:54→17:32)
[2018-07-09] MEDS: AMLODIPINE BESYLATE 10 MG TAB PO SCH (09:54)
[2018-07-09] MEDS: NICOTINE 14 MG/EA PATCH TOP SCH (09:55)
--- NOTE | 2018-07-09 10:10 | NUR ---
assessment complete no distress noted, updated on poc vocied understanding, co of generalized pain medicated with soma per pt request. ivf infusing to r fa 18g no ss of infiltration noted, no other co voiced call light in reach will continue to monitor
[2018-07-09] MEDS: HYDROCODONE/APAP 10MG-325MG TAB PO PRN (14:29)
--- NOTE | 2018-07-09 15:30 | NUR ---
report called to garima ortiz, pt transferred to rm [id number] with all belongings and in stable condition.
--- NOTE | 2018-07-09 15:36 | NUR ---
Patient arrived to the unit at this time via bed. Patient on 2L O2 via NC. Patient is in no distress. No shortness of breath noted. Call paulson is within reach. Bed is low and locked. Educated patient to call if assistance needed.
--- NOTE | 2018-07-09 16:19 | NUR ---
CASE MANAGEMENT ASSESSMENT Tape Edge Machine Operator to bedside to discuss plan of care with patient/family. CM/SW role and care transitions discussed. Anticipated discharge plan discussed along with duration of care. CM/SW discussed patients right to make decisions in care. CM/SW work hours given. Patient lives: with a roommate Admit/Transfer: thru ED Hospital/ER visits since last admit: last ED visit in February 2018, pt was transferred to [facility] from ED POA/Emergency contact: brother Ethan Vigil [phone] Current/Previous Home Health: none PCP/Follow-up Care: MD at [facility]; pt does not remember name; CM advised pt to follow up with MD within 7 days of discharge Current/Previous DME: nebulizer Medications (referring to index hospitalization or the first time you were in the hospital) a. Were changes made in your medications when you were in the hospital on Feb 2018? pt states no changes b. Did you understand the changes? n/a c. Were you able to obtain your new medications right away? n/a d. Were you able to take your medications like the doctor wanted you to? n/a e. Did the hospital give you an accurate, easy to understand list of medications when you left? n/a Scale of 1-10 how comfortable does patient feel with disease management in outpatient settin Other Services: none Employment Status: employed with [employer] Areas of Concerns: COPD, SOB Referral Needs: may need home oxygen Education Needs: medical management IMM/ALDANA given and signed (if applicable): n/a Goal for discharge: home; wants to be able to exert without difficulty breathing CM/SW left business card at the bedside with contact information. Name and number was also written on the patients whiteboard. Patient verbalized understanding of discussion. CM will follow-up with ongoing discharge and transition of care needs.
--- NOTE | 2018-07-09 17:00 | NUR ---
Nutrition Intervention Note RD Recommendation(s) for Physician: -Rec liberalizing diet to regular to promote PO intake -Continue Ensure Enlive TID to increase protein-calorie intake -Encourage PO and hydration -The patient meets criteria for unspecified SEVERE protein-calorie malnutrition. Plan of Care: RD following, monitoring for tolerance and adequacy, ONS rec Nutrition reason for involvement: Underweight BMI RD Assessment 07/09 Chart reviewed. 62yo F, who was admitted for SOB. Currently on IVF and abx. Visited pt in the room. Pt reported decreased meal intake and weight loss of ~15lbs in the last 2 months. Pt had significant muscle and fat loss upon NFPA. For today, pt was able to finish 75-100% of her meals; pt also drank all the Ensure ordered. No complains of nausea or vomiting. Pt has broken denture but refused texture modification. Pt denied any swallowing difficulty. Will continue to monitor and follow. Please consult if nutrition status changed. Principal Problems/Diagnoses: acute exacerbation of chronic obstructive pulmonary disease PMH: Hepatitis C, COPD, degenerative joint disease. GI: abdomen flat, soft, flatus present, LBM 07/09 Skin: no pressure wound noted Labs: (07/09) Creatinine 0.55 L, Glucose 148 H Meds: solu-medrol, prinivil, colace, pepcid Ht: 63in Wt: 83.44lb BMI: 14.8kg/m2 IBW: 115lb Malnutrition Evaluation (07/09) The patient meets criteria for unspecified SEVERE protein-calorie malnutrition. Energy intake: <50% of estimated energy requirements for >1 month Weight loss: >5% in 1 month (Acute) Fat loss: Severe clavicle protrusion, apparent ribs Muscle loss: Severe protrusion of acromion process, depression of temporal Supporting Evidence: Fluid accumulation: unable to evaluate Functional Status: no changes Nutrition Prescription (Diet Order): cardiac diet Estimated Nutritional Needs: Calories: 1140 1330kcal (30-35kcal/kg/d) Weight used : Current BW Protein: 57 76g (1.5-2g/kg/d) Weight used: Current BW Diet Adequacy: Meeting calorie needs, Meeting protein needs Diet Education Needs Assessment: Diet education not indicated Nutrition Care Level: mod Nutrition Diagnosis: Underweight related to acute illness as evidenced by poor PO and weight loss in 2 months. Goal: Patient will meet 75-100% of estimated needs by follow up Progress: Progressing Interventions: General healthful diet, Commercial beverage Monitoring/Evaluation: Total energy intake, Total protein intake, diet, Liquid supplement, Weight change Signed: Pamela Raymundo MS, RD, LD
--- NOTE | 2018-07-09 19:36 | NUR ---
Patient received lying in bed. AAO x 3. No complaints of pain. No signs of respiratory distress. 2L NC in place. Bed locked and in lowest position. Bed rails up x 2. Patient instructed to call for assistance when needed. Call light within reach.
[2018-07-09] MEDS: CEFTRIAXONE SOD 1 GM VIAL IV SCH (20:45)
[2018-07-09] MEDS ORDERED: SODIUM CHLORIDE 0.9% 50ML 50 ML ONE (21:54)
[2018-07-09] MEDS: MORPHINE SULFATE INJ 4 MG/ML INJ 1ML IV PRN (22:01)
[2018-07-09] MEDS: ZOLPIDEM TARTRATE 5 MG TAB PO PRN (23:44)
[2018-07-10] VITALS (9 sets, daily range): BP systolic 131–169; BP diastolic 60–91
[2018-07-10] MEDS: ALBUTEROL/IPRATROPIUM 3 ML NEB NEB SCH ×5 (03:07→19:30)
[2018-07-10 04:57] LABS: BASOPHILS % 0.2 % (0.0-1.0); HEMATOCRIT 35.3 % (34.2-44.1); HEMOGLOBIN 11.9 g/dL (12.0-16.0); LYMPHOCYTES # (AUTO) 0.3 (1.0-3.2); LYMPHOCYTES % 5.5 % (18.0-39.1); MEAN CORPUSCULAR HEMOGLOBIN 33.5 pg (28-32); MEAN CORPUSCULAR HGB CONC 33.7 g/dL (31-35); MONOCYTES # (AUTO) 0.3 (0.2-0.8); MONOCYTES % 4.8 % (4.4-11.3); NEUTROPHILS # (AUTO) 4.8 (2.1-6.9); NEUTROPHILS % 88.8 % (38.7-80.0); PLATELET COUNT 158 x10e3/uL (140-360); RED BLOOD COUNT 3.55 x10e6/uL (3.6-5.1); RED CELL DISTRIBUTION WIDTH 11.9 % (11.7-14.4)
[2018-07-10 04:59] LABS: MEAN CORPUSCULAR VOLUME 99.4 fL (81-99)
[2018-07-10] MEDS: CARISOPRODOL 350 MG TAB PO PRN ×2 (05:00→18:18)
[2018-07-10 05:44] LABS: ANION GAP 10.1 mmol/L (8-16); BLOOD UREA NITROGEN 17 mg/dL (7-26); BUN/CREATININE RATIO 31 (6-25); CALCIUM 9.1 mg/dL (8.4-10.2); CARBON DIOXIDE 29 mmol/L (22-29); CHLORIDE 105 mmol/L (98-107); CREATININE, SERUM 0.55 mg/dL (0.57-1.11); EST GLOMERULAR FILTRATION RATE > 60 ML/MIN (60-); GLUCOSE 128 mg/dL (74-118); MAGNESIUM 2.1 MG/DL (1.3-2.1); POTASSIUM 4.1 mmol/L (3.5-5.1); SODIUM 140 mmol/L (136-145)
[2018-07-10 06:47] LABS: LYMPHOCYTES % (MANUAL) 6 % (19-48); MONOCYTES % (MANUAL) 4 % (3.4-9.0); NEUTROPHILS % (MANUAL) 87 % (40-74); RBC MORPHOLOGY COMMENT NORMAL
[2018-07-10 06:48] LABS: ANISOCYTOSIS SLIGHT; HYPOCHROMASIA SLIGHT; PLATELET ESTIMATE SLIGHTLY DECREASED; PLATELET MORPHOLOGY COMMENT FEW LARGE
[2018-07-10] MEDS: AZITHROMYCIN 500MG/NS 250 ML 250 ML IV SCH (06:56)
[2018-07-10] MEDS: METHYLPREDNISOLONE SOD SUCC 125 MG/2ML VIAL IV SCH ×3 (06:56→21:31)
[2018-07-10] MEDS: GUAIFENESIN 600MG/DEXTROMETHORPHAN 30MG TABSR PO SCH ×2 (08:55→16:39)
[2018-07-10] MEDS: DOCUSATE SODIUM 100 MG CAP PO SCH (08:55)
[2018-07-10] MEDS: NICOTINE 14 MG/EA PATCH TOP SCH (08:55)
[2018-07-10] MEDS: AMLODIPINE BESYLATE 10 MG TAB PO SCH (08:55)
[2018-07-10] MEDS: FAMOTIDINE 20 MG TAB PO SCH ×2 (08:55→16:39)
[2018-07-10] MEDS: LISINOPRIL 10 MG TAB PO SCH (08:55)
[2018-07-10] MEDS: HYDROCODONE/APAP 10MG-325MG TAB PO PRN (08:55)
[2018-07-10] MEDS: GABAPENTIN 100 MG CAP PO SCH ×2 (08:55→20:54)
[2018-07-10] MEDS: MORPHINE SULFATE INJ 4 MG/ML INJ 1ML IV PRN ×2 (15:56→20:04)
--- NOTE | 2018-07-10 15:56 | NUR ---
IV TO THE RIGHT WRIST REMOVED WITH TIP INTACT. PRESSURE DRESSING APPLIED. NEW IV STARTED TO THE LEFT FOREARM, 20 GAUGE, PATENT AND INTACT. PATIENT TOLERATED WELL. NO S/S OF DISTRESS NOTED. PATIENT C/O CHEST/BACK PAIN 12/22. MEDICATED WITH MORPHINE.
--- NOTE | 2018-07-10 20:00 | NUR ---
pt received. pt assessed. no ss of distress noted. o2 nc in place. tele noted. pt co pain. discussed pain mngt poc. verbalized understanding. will medicate per orders. will cont to follow poc. call paulson within reach.
--- NOTE | 2018-07-10 20:06 | NUR ---
dr navarro rounding. new orders received.
[2018-07-10] MEDS: CEFTRIAXONE SOD 1 GM/NS 50 ML 50 ML IV SCH (20:54)
--- NOTE | 2018-07-10 21:30 | NUR ---
bp rechecked at time 148/73. no ss of distress noted. call paulson within reach.
[2018-07-10] MEDS: ZOLPIDEM TARTRATE 5 MG TAB PO PRN (21:51)
[2018-07-11] MEDS: ALBUTEROL/IPRATROPIUM 3 ML NEB NEB SCH ×7 (01:30→23:22)
[2018-07-11] MEDS: ACETYLCYSTEINE 200 MG/ML 4ML VIAL INH SCH ×2 (01:30→07:00)
[2018-07-11] MEDS: MORPHINE SULFATE INJ 4 MG/ML INJ 1ML IV PRN ×5 (01:46→23:52)
[2018-07-11 05:39] LABS: BASOPHILS % 0.2 % (0.0-1.0); HEMATOCRIT 37.9 % (34.2-44.1); HEMOGLOBIN 12.8 g/dL (12.0-16.0); LYMPHOCYTES # (AUTO) 0.5 (1.0-3.2); MEAN CORPUSCULAR HEMOGLOBIN 34.1 pg (28-32); MEAN CORPUSCULAR HGB CONC 33.8 g/dL (31-35); MEAN CORPUSCULAR VOLUME 101.1 fL (81-99); MONOCYTES # (AUTO) 0.4 (0.2-0.8); MONOCYTES % 7.7 % (4.4-11.3); NEUTROPHILS # (AUTO) 4.2 (2.1-6.9); NEUTROPHILS % 80.9 % (38.7-80.0); PLATELET COUNT 173 x10e3/uL (140-360); RED BLOOD COUNT 3.75 x10e6/uL (3.6-5.1); RED CELL DISTRIBUTION WIDTH 11.9 % (11.7-14.4)
[2018-07-11 05:43] VITALS: BP 186/85
[2018-07-11] MEDS: METHYLPREDNISOLONE SOD SUCC 125 MG/2ML VIAL IV SCH ×3 (05:58→22:18)
[2018-07-11 06:09] LABS: ANION GAP 10.2 mmol/L (8-16); BLOOD UREA NITROGEN 16 mg/dL (7-26); BUN/CREATININE RATIO 27 (6-25); CALCIUM 9.5 mg/dL (8.4-10.2); CARBON DIOXIDE 35 mmol/L (22-29); CHLORIDE 99 mmol/L (98-107); CREATININE, SERUM 0.59 mg/dL (0.57-1.11); EST GLOMERULAR FILTRATION RATE > 60 ML/MIN (60-); GLUCOSE 130 mg/dL (74-118); SODIUM 139 mmol/L (136-145)
[2018-07-11 06:19] LABS: POTASSIUM 5.2 mmol/L (3.5-5.1)
--- NOTE | 2018-07-11 06:20 | NUR ---
bp rechecked 159/81, p 89. pt cont to co pain. discussed pain mngt poc. verbalized understanding. will medicate per orders. call paulson within reach.
[2018-07-11] MEDS: AZITHROMYCIN 500MG/NS 250 ML 250 ML IV SCH (06:21)
[2018-07-11] MEDS: CARISOPRODOL 350 MG TAB PO PRN ×2 (06:24→20:12)
--- NOTE | 2018-07-11 07:10 | NUR ---
spoke to fred immigration case worker for dr zacarias regarding lab results. no new orders at time. oncoming nurse made aware.
--- NOTE | 2018-07-11 07:34 | NUR ---
Received patient awake in bed no signs of distress. Call light in reach, will continue to monitor.
[2018-07-11 07:48] VITALS: BP 157/84
[2018-07-11] MEDS: LISINOPRIL 10 MG TAB PO SCH (08:04)
[2018-07-11] MEDS: NICOTINE 14 MG/EA PATCH TOP SCH (08:04)
[2018-07-11] MEDS: AMLODIPINE BESYLATE 10 MG TAB PO SCH (08:04)
[2018-07-11] MEDS: DOCUSATE SODIUM 100 MG CAP PO SCH (08:04)
[2018-07-11] MEDS: GABAPENTIN 100 MG CAP PO SCH ×2 (08:04→20:54)
[2018-07-11] MEDS: GUAIFENESIN 600MG/DEXTROMETHORPHAN 30MG TABSR PO SCH ×2 (08:04→16:43)
[2018-07-11] MEDS: FAMOTIDINE 20 MG TAB PO SCH ×2 (08:04→16:43)
--- NOTE | 2018-07-11 09:45 | NUR ---
Patient A/O X3, even respirations on RA. Bowel sounds active, skin intact, no edema. Right FA 20 gauge IV SL. Patient on tele #17 running SR. Patient is ambulatory with standby assist. Call light in reach, will continue to monitor.
[2018-07-11 10:33] VITALS: BP 157/84
--- NOTE | 2018-07-11 11:03 | NUR ---
Spoke with Dr. Rodríguez regarding discharge plan. He stated he will see pt today and decide. Pt will most likely need home oxygen. CM reminded him that home oxygen eval only valid for [address] Rodríguez will order new home oxygen eval if needed. Anticipating discharge either or Monday. Pt will discharge home with PO abx.
[2018-07-11 12:00] VITALS: BP 159/77
[2018-07-11 17:24] VITALS: BP 179/84
[2018-07-11] MEDS: CLONIDINE HCL 0.1 MG TAB PO PRN (17:43)
[2018-07-11] MEDS: CEFTRIAXONE SOD 1 GM/NS 50 ML 50 ML IV SCH (20:54)
[2018-07-11 21:14] VITALS: BP 151/78
[2018-07-11] MEDS: ZOLPIDEM TARTRATE 5 MG TAB PO PRN (22:18)
[2018-07-12] VITALS (7 sets, daily range): BP systolic 120–177; BP diastolic 63–84
[2018-07-12] MEDS: MORPHINE SULFATE INJ 4 MG/ML INJ 1ML IV PRN ×4 (04:17→21:31)
[2018-07-12] MEDS: METHYLPREDNISOLONE SOD SUCC 125 MG/2ML VIAL IV SCH ×3 (05:41→21:10)
[2018-07-12] MEDS: AZITHROMYCIN 500MG/NS 250 ML 250 ML IV SCH (05:56)
[2018-07-12] MEDS: FAMOTIDINE 20 MG TAB PO SCH ×2 (06:24→17:22)
--- NOTE | 2018-07-12 07:14 | NUR ---
pt awake resp even and unlabored at this time no distress noted , call light in reach
[2018-07-12] MEDS: ALBUTEROL/IPRATROPIUM 3 ML NEB NEB SCH ×4 (07:40→23:40)
[2018-07-12] MEDS: DOCUSATE SODIUM 100 MG CAP PO SCH (08:58)
[2018-07-12] MEDS: GUAIFENESIN 600MG/DEXTROMETHORPHAN 30MG TABSR PO SCH ×2 (08:58→17:22)
[2018-07-12] MEDS: GABAPENTIN 100 MG CAP PO SCH ×2 (08:58→21:00)
[2018-07-12] MEDS: AMLODIPINE BESYLATE 10 MG TAB PO SCH (08:59)
[2018-07-12] MEDS: LISINOPRIL 10 MG TAB PO SCH (08:59)
[2018-07-12] MEDS: NICOTINE 14 MG/EA PATCH TOP SCH (08:59)
[2018-07-12] MEDS: CARISOPRODOL 350 MG TAB PO PRN ×2 (09:14→21:11)
[2018-07-12] MEDS: ONDANSETRON HCL INJ 2MG/ML 2ML 2 MG/ML VIAL IV PRN ×3 (09:54→21:32)
--- NOTE | 2018-07-12 16:02 | NUR ---
Nutrition Intervention Note RD Recommendation(s) for Physician: - Continue regular diet as ordered - Continue Ensure Enlive TID to increase protein-calorie intake - Encourage PO and hydration - The patient meets criteria for unspecified SEVERE protein-calorie malnutrition. Plan of Care: RD following, monitoring for tolerance and adequacy, ONS rec Nutrition reason for involvement: Follow up RD Assessment 07/11 Pt was discussed during AM rounds. Visited pt in the room. Pt reported improvement in her appetite. Pt ate 100% of her lunch today. Pt also drank all the Ensure ordered. No GI complains noted. Pt reported broken denture but refused texture modification. Will continue to monitor and follow. Please consult if nutrition status changed. 07/09 Chart reviewed. 62yo F, who was admitted for SOB. Currently on IVF and abx. Visited pt in the room. Pt reported decreased meal intake and weight loss of ~15lbs in the last 2 months. Pt had significant muscle and fat loss upon NFPA. For today, pt was able to finish 75-100% of her meals; pt also drank all the Ensure ordered. No complains of nausea or vomiting. Pt has broken denture but refused texture modification. Pt denied any swallowing difficulty. Will continue to monitor and follow. Please consult if nutrition status changed. Principal Problems/Diagnoses: acute exacerbation of chronic obstructive pulmonary disease PMH: Hepatitis C, COPD, degenerative joint disease. GI: abdomen flat, soft, flatus present, LBM 07/12 Skin: no pressure wound noted Labs: (07/11) K 5.2 H, glucose 130 H (07/09) Creatinine 0.55 L, Glucose 148 H Meds: solu-medrol, prinivil, colace, pepcid Ht: 63in Wt: 83.44lb; 104lb BMI: 14.8kg/m2 IBW: 115lb Malnutrition Evaluation (07/09) The patient meets criteria for unspecified SEVERE protein-calorie malnutrition. Energy intake: <50% of estimated energy requirements for >1 month Weight loss: >5% in 1 month (Acute) Fat loss: Severe clavicle protrusion, apparent ribs Muscle loss: Severe protrusion of acromion process, depression of temporal Supporting Evidence: Fluid accumulation: unable to evaluate Functional Status: no changes Nutrition Prescription (Diet Order): regular diet Estimated Nutritional Needs: Calories: 1140 1330kcal (30-35kcal/kg/d) Weight used : Current BW Protein: 57 76g (1.5-2g/kg/d) Weight used: Current BW Diet Adequacy: Meeting calorie needs, Meeting protein needs Diet Education Needs Assessment: Diet education not indicated Nutrition Care Level: low Nutrition Diagnosis: None at this time. Goal: Patient will meet 75-100% of estimated needs by follow up Progress: Goal met Interventions: General healthful diet, Commercial beverage Monitoring/Evaluation: Total energy intake, Total protein intake, diet, Liquid supplement, Weight change Signed: Pamela Raymundo MS, RD, LD
--- NOTE | 2018-07-12 19:25 | NUR ---
Received change of shift report from AM nurse. Report completed.
--- NOTE | 2018-07-12 19:25 | NUR ---
report given to oncoming nurse for continued care.
[2018-07-12] MEDS: CEFTRIAXONE SOD 1 GM/NS 50 ML 50 ML IV SCH (20:45)
[2018-07-12] MEDS: CLONIDINE HCL 0.1 MG TAB PO PRN (21:40)
[2018-07-13 00:37] VITALS: BP 130/61
[2018-07-13] MEDS: MORPHINE SULFATE INJ 4 MG/ML INJ 1ML IV PRN ×2 (03:32→16:03)
[2018-07-13] MEDS: ONDANSETRON HCL INJ 2MG/ML 2ML 2 MG/ML VIAL IV PRN (03:33)
--- NOTE | 2018-07-13 05:32 | NUR ---
Patient resting quitly with no c/o at this time.
[2018-07-13] MEDS: METHYLPREDNISOLONE SOD SUCC 125 MG/2ML VIAL IV SCH (05:55)
[2018-07-13 05:59] VITALS: BP 162/77
[2018-07-13] MEDS: ALBUTEROL/IPRATROPIUM 3 ML NEB NEB SCH ×3 (07:22→14:57)
[2018-07-13 08:19] VITALS: BP 170/87
--- NOTE | 2018-07-13 08:30 | NUR ---
Reached out to Lul with [facility] to see if they are able to accept pt's insurance. Awaiting response.
[2018-07-13 09:07] VITALS: BP 136/68
[2018-07-13] MEDS: DOCUSATE SODIUM 100 MG CAP PO SCH (09:07)
[2018-07-13] MEDS: FAMOTIDINE 20 MG TAB PO SCH ×2 (09:07→16:00)
[2018-07-13] MEDS: LISINOPRIL 10 MG TAB PO SCH (09:07)
[2018-07-13] MEDS: NICOTINE 14 MG/EA PATCH TOP SCH (09:07)
[2018-07-13] MEDS: GABAPENTIN 100 MG CAP PO SCH (09:07)
[2018-07-13] MEDS: GUAIFENESIN 600MG/DEXTROMETHORPHAN 30MG TABSR PO SCH ×2 (09:07→16:00)
[2018-07-13] MEDS: AMLODIPINE BESYLATE 10 MG TAB PO SCH (09:07)
[2018-07-13] MEDS: AZITHROMYCIN 500MG/NS 250 ML 250 ML IV SCH (09:08)
[2018-07-13] MEDS: HYDROCODONE/APAP 10MG-325MG TAB PO PRN (09:13)
[2018-07-13] MEDS: CARISOPRODOL 350 MG TAB PO PRN (09:18)
[2018-07-13 11:36] VITALS: BP 136/68
[2018-07-13] MEDS ORDERED: FUROSEMIDE INJ 10 MG/ML 4 ML VIAL IV ONE (12:15)
[2018-07-13] MEDS ORDERED: CATAPRES0.1 MG PO (12:25)
[2018-07-13] MEDS ORDERED: CEFUROXIME500 MG PO (12:25)
[2018-07-13] MEDS ORDERED: MUCINEX DM ER1 EACH PO (12:25)
[2018-07-13] MEDS ORDERED: PREDNISONE20 MG PO (12:25)
[2018-07-13] MEDS ORDERED: NIFEDIPINE ER30 M1 PO (12:25)
[2018-07-13] MEDS ORDERED: Albuterol/Ipratropium Nebulize NEB (12:25)
[2018-07-13] MEDS ORDERED: AMBIEN5 MG PO (12:31)
--- NOTE | 2018-07-13 12:53 | Diagnostic Imaging Report ---
EXAM: CHEST SINGLE (PORTABLE) DATE: 07/13/2018 12:15 PM INDICATION: Shortness of breath COMPARISON: Chest x-ray, 07/07/2018 FINDINGS: Lines and tubes: None Heart size normal. No focal pulmonary opacity, pleural effusion or pneumothorax. Mild hyperinflation of the lungs again noted. Decreased central pulmonary vascular prominence. Upper abdomen unremarkable. No acute bony abnormality. IMPRESSION: No evidence for acute disease or significant change. Signed by: Dr. David Fontaine M.D. on 07/13/2018 12:50 PM
--- NOTE | 2018-07-13 14:55 | NUR ---
Per Lul, [facility] is able to take pt's insurance.
--- NOTE | 2018-07-13 15:25 | NUR ---
CM spoke with pt at bedside and got choice for [employer] for Home oxygen. Choice letter placed in chart. Copy to pt. Referral was faxed to [phone]. Lul with [employer] informed discharge is pending home o2 set up.
[2018-07-13 16:12] VITALS: BP 150/70
--- NOTE | 2018-07-13 16:15 | NUR ---
Spoke with Lul at [facility]. He stated he will be by in 45 mins to deliver portables. CM informed pt, TRACY Bernard, and VIKA Gamble. TRACY Bernard to call [facility] Gamble once oxygen delivered for discharge order.
[2018-07-13] MEDS ORDERED: PREDNISONE 20 MG TAB PO SCH (17:00)
--- NOTE | 2018-07-13 19:30 | NUR ---
pt received. pt assessed. no ss of distress noted. o2 nc in place. tele noted. awaiting discharge orders. call paulson within reach.
--- NOTE | 2018-07-13 19:55 | NUR ---
pt given discharge instructions. verbalized understanding. left fa 20g dc'd, catheter tip intact. drsg applied to site. pt tolerated well. tele dc'd. discharge folder given.
--- NOTE | 2018-07-13 20:05 | NUR ---
pt transportation here. pt wheeled to private auto. home o2 nc in place with discharge. all belongings sent with pt. no distress or pain noted with discharge.
[2018-07-13] MEDS ORDERED: NIFEDIPINE CR 30 MG TAB PO SCH (21:00)
--- NOTE | 2018-07-14 18:03 | Discharge Summary ---
ADMISSION DIAGNOSES: 1. Acute exacerbation of chronic obstructive pulmonary disease. 2. Severe protein calorie malnutrition. 3. Hypertension. 4. Neuropathy. 5. Chronic back pain. 6. Thrombocytopenia. 7. Elevated creatine kinase. 8. Tobacco use. DISCHARGE DIAGNOSES: 1. Acute exacerbation of chronic obstructive pulmonary disease. 2. Severe protein calorie malnutrition. 3. Hypertension. 4. Neuropathy. 5. Chronic back pain. 6. Thrombocytopenia. 7. Elevated creatine kinase. 8. Tobacco use. MEDICAL HISTORY: Hep C, degenerative joint disease, COPD, tobacco use. SURGICAL HISTORY: Right hip surgery, left knee surgery, left wrist repair, laparoscopic cholecystectomy. FAMILY HISTORY: The patient's brother has diabetes. The patient's mom has cancer. The patient's dad had a stroke. SOCIAL HISTORY: The patient admits to tobacco use. She is currently using the patch only and her last cigarette was about 3 weeks ago. She denies alcohol or illicit drug use. HOSPITAL COURSE: A 62-year-old female, who complains of worsening shortness of breath and dyspnea on exertion, productive cough and fever of 102 over the last 3 days. She went to her primary care who told her she might have pneumonia and sent her to the ER. Nothing worsened or improved these symptoms. On admission, the patient was started on Rocephin, Zithromax, nebs, Solu-Medrol and Pulmonary was consulted. The patient was given [place] and Soma for her chronic pain. Chest x-ray showed hyperinflated lungs representing COPD, mild central vascular congestion, no definite focal consolidation. Vital signs are stable. The patient is afebrile. After few days of antibiotics, the patient is doing much better and ready to discharge home. She qualified for oxygen, so it was setup prior to discharge. She will discharge home with DuoNeb, Ceftin for 4 days, clonidine 0.1 t.i.d. p.r.n., Mucinex, nifedipine, prednisone, and Ambien. She will follow up with primary care in 1 to 2 weeks and Pulmonary as discussed. The patient understands discharge instructions and agrees to plan. Dictated by Mavis Hay NP Robin Rodríguez MD [facility] /[id number]
== END 2018-07-13 20:03 | disposition home or self-care (01) | DRG 190 ==
LOC: ER 19:19 → ERHOLD 21:36 → INTOOBSV 21:36 → IMCU 21:43 → OBSVTOIN 07-08 07:42 → MED/SURG 07-08 18:10 → MED/SURG2 07-09 15:43
PROVIDERS: ADMIT Internal Medicine; ATTEND Internal Medicine
DX: J44.1 Chronic obstructive pulmonary disease with (acute) exacerbation (principal); E43 Unspecified severe protein-calorie malnutrition; Z68.1 Body mass index [BMI] 19.9 or less, adult; I10 Essential (primary) hypertension; G62.9 Polyneuropathy, unspecified; D69.6 Thrombocytopenia, unspecified; G89.29 Other chronic pain; G47.00 Insomnia, unspecified
CPT/HCPCS: 36415; 71045; 71046; 80048; 80053; 81001; 82550; 82553; 82948; 83735; 83880; 84484; 85025; 93005; 93306; 94640; 96367; 96374; 96375; 96376; 99284; G0378; J0456; J0696; J1940; J2270; J2405; J2930; J7030; J7512